=== PATIENT | female | born 1960 | race Caucasian/White ===

== ENCOUNTER 2021-11-20 06:28 | Day surgery (SDC) | payer OTHER, SELFPAY ==
[2021-11-20] MEDS: Tropicam./Phenyleph. (1/2.5%) 5 ML BTL OS ×3 (06:50→07:01)
[2021-11-20 06:51] VITALS: BP 128/86; PULSE 72; RESP 16; TEMP 36.7; O2SAT 100
--- NOTE | 2021-11-20 07:06 | W.ANESPRE ---
General Info Date of Service Date Performed: 11/20/21 Height: 5 ft 3 in Weight: 62.9 kg Body Mass Index (BMI): 24.5 Surgical Procedure: Operation Date: 11/20/21 07:40 Proposed Procedure Side Surgeon p Cataract Extraction with IOL Implant Left Mehdi Mackey MD Meds Allergies and Home Medications Allergies Allergy/AdvReac Type Severity Reaction Status Date / Time No Known Allergies Allergy Unverified 11/20/21 06:41 Current Visit Medications: Current Medications Generic Name Dose Route Start Last Admin Trade Name Freq PRN Reason Stop Dose Admin Acetaminophen 1,000 mg 11/20/21 06:00 Acetaminophen 500 Mg Tab PO Q4H PRN PRN Miscellaneous Medication 0 ml 11/20/21 06:00 Prednisolone 1%, Moxifloxacin 0.5%, Nepafenac 0.1% 5ml Btl OS DIRECTED KRISHNA Miscellaneous Medication 0 ml 11/20/21 06:00 11/20/21 07:01 Tropicam./Phenyleph. (1/2.5%) 5 Ml Btl OS 1 drp DIRECTED KRISHNA Administration Tetracaine HCl 0 ml 11/20/21 06:00 Tetracaine 0.5% 4 Ml Btl OS DIRECTED KRISHNA PFSH Active Problems Active Problems: Problem Status Onset Code Nuclear sclerotic cataract of left eye H25.12 Cortical cataract of left eye H26.9 Medical History Medical History Alcohol abuse Carbuncle Medical History Comments:: daily smoker, alcohol; weekly cannibus Surgical History Surgical History (Updated 11/20/21 @ 06:42 by Purvi Stratton) History of carpal tunnel repair Hx of appendectomy Hx of hemorrhoidectomy Tobacco Smoking/Tobacco Use Status: Current every day Tobacco Type: cigarettes Alcohol Alcohol Intake: current Alcohol intake frequency: 3 or more drinks per day Alcohol type: beer Substance Use Substance use: Socially Substance use type: marijuana Details: weekly Vital Signs and Lab Results Vital Signs Most Recent Vital Signs in EMR: Most Recent Vital Signs Temp Pulse Resp BP Pulse Ox 36.7 C 72 16 128/86 100 11/20/21 06:51 11/20/21 06:51 11/20/21 06:51 11/20/21 06:51 11/20/21 06:51 Lab Results Blood Type / Crossmatch: No Data to Display Complete Blood Count: No Data to Display Complete Metabolic Panel: No Data to Display Liver Function Panel: No Data to Display Coagulation Panel: No Data to Display Cardiac Panel: No Data to Display Arterial Blood Gas: No Data to Display Venous Blood Gas: No Data to Display Pancreas Panel: No Data to Display Thyroid Panel: No Data to Display Infectious Disease: No Data to Display Blood Cultures: No Data to Display Toxicology Panel: No Data to Display Anesthesia Assessment and Plan Anesthesia History Personal History: No History of Anesthesia Complications Family History: No Family History of Anesthesia Complications Exercise Tolerance Exercise Tolerance: Metabolic Equivalents>4 Cardiac & Pulmonary Exam Cardiac Exam: Normal S1/S2 Heart Sounds Pulmonary Exam: Clear Bilateral Breath Sounds Implantable Cardiac Device Does patient have a Pacemaker or an ICD?: No Airway Exam Known Difficult Airway: No Mallampati Class: 2 Mouth Opening: Normal (> 3cm) Thyromental Distance: Greater than 3 cm Neck Range of Motion: Full ROM Neck Circumference: Normal Teeth Condition: Normal Dentition ASA Classification ASA Score: ASA 2 Emergency Case?: No NPO Status NPO Status: NPO Clears >2 hours, Solids >8 hours Anesthesia Plan Resuscitation Status: Full Code Anesthesia Technique: MAC Anesthesia Airway Planned: Natural Airway Monitors Used: Standard Monitors
[2021-11-20 07:09] VITALS: BMI 24.5
[2021-11-20] MEDS: Povidone-Iodine Ophth 30 ML BTL (07:26)
[2021-11-20] MEDS: Lidocaine 2% Jelly 6 ML SYR (07:26)
[2021-11-20] MEDS: Tetracaine 0.5% 4 ML BTL OS (07:26)
[2021-11-20] MEDS: Duovisc Viscoelastic System EACH 1 EACH (07:33)
[2021-11-20] MEDS: Balanced Salt Soln.-PLUS 500 ML BAG (07:35)
[2021-11-20 07:55] VITALS: BP 135/86; PULSE 80; RESP 16; TEMP 36.3; O2SAT 99
--- NOTE | 2021-11-20 07:55 | W.PM.DSUDISC ---
Discharge Plan Disposition Patient Disposition: HOME Condition: Good Discharge Details Attending Provider: Mehdi Mackey Primary Care Provider: Ashleigh Martinez Discharge Instructions Stand Alone Forms: Post-op Topical Cataract, Anne Monson (DSU) Discharge Orders Discharge Orders: Discharge Order (Routine); Ordered 11/20/21 Ordered By: Mehdi Mackey DS: Diagnosis Discharge Diagnosis (1) Nuclear sclerotic cataract of left eye: Status: Resolved (2) Cortical cataract of left eye: Status: Resolved
--- NOTE | 2021-11-20 07:57 | ROE_ITS ---
Date of service: 11/20/21 Time of Service: 07:57 Operative Note Operative Note DATE OF PROCEDURE: 11/20/21 PRE-OP DIAGNOSIS: Nuclear/cortical cataract, left eye POST-OP DIAGNOSIS: same PROCEDURE: Cataract extraction using phacoemulsification with intraocular lens implant, left eye SURGEON: Mehdi Mackey ANESTHESIA TYPE: Local By Surgeon and MAC Refer to Anesthesia Record PATHOLOGY: none sent COMPLICATIONS: None Patient was transported to: same day Patient's condition: stable Implants: Raul and Raul / [employer] Tecnis [id number] Indications: Progressive decreased vision due to cataract, left eye Procedure Description: CATARACT SURGERY OPERATIVE REPORT PREOPERATIVE DIAGNOSIS: 1. Nuclear/cortical cataract, left eye POSTOPERATIVE DIAGNOSIS: Same OPERATION: 1. Cataract extraction using phacoemulsification with posterior chamber intraocular lens implant, left eye. IOL: IOL Sandblasting Supervisor/Model: Raul & Raul / BECKY Tecnis [id number] IOL Power: + 12.5 diopters IOL Serial Number: [id number] Optic Diameter: 6.0 mm Haptic/Overall Diameter: 13.0 mm PHACO INFO: Pedro[employer]o Brandson Vision System with OZil and Active Fluidics Cumulative Dispersed Energy (CDE): 9.0 seconds SURGEON: Mehdi Mackey MD, JANET ANESTHESIA: Monitored A [facility] (MAC), with local sub-tenon's anesthetic infiltration COMPLICATIONS: None SPECIMENS: None INDICATIONS FOR PROCEDURE: The patient is a 61-year-old lady with history of diminished visual acuity in her left eye secondary to the development of nuclear/cortical cataract. She has a history of myopia. The option of cataract surgery was offered to the patient and she felt she was symptomatic enough that she wished to proceed. PROCEDURE: The correct surgical eye was identified and marked as the left eye and the pupil was dilated in the preoperative area using mydriatics and cycloplegics. The dilated pupil size was 6.5 mm. She elected to proceed without oral sedation. The patient was brought to the operating room where cardiopulmonary monitoring was instituted and surgical time-out was performed, confirming the correct operative eye and IOL power. Topical anesthesia was administered and ophthalmic povidone-iodine 5% was inst illed into the conjunctival fornices. Lidocaine gel was applied to the cornea and the ana-ocular area was prepped with Betadine 10% solution and draped in the usual sterile fashion for intraocular surgery, including an aperture drape. A Tegaderm transparent film dressing was cut in half and used to cover the lashes and lid margins. Care was taken to sequester the lashes and lid margins under the Tegaderm dressing. A lid speculum was placed between the lids of the operative eye and the Pedro [employer] Revalia operating microscope was maneuvered into position. Polo scissors were then used to make a conjunctival buttonhole approximately 6mm posterior to the limbus in the inferonasal quadrant. Blunt dissection was carried out to expose bare sclera, and a blunt-tipped sub-tenon?s anesthesia cannula was introduced and passed posteriorly along the globe where non- preserved plain lidocaine was injected into posterior sub-Tenon?s space. A sideport knife was used to make a paracentesis port superiorly/superiortemporally. Intraocular phenylephrine/lidocaine was injected int the anterior chamber.. The anterior chamber was filled with viscoelastic. A 2.4mm keratome knife was used to create a half-thickness groove at the limbus and then to construct a three-plane near-clear corneal tunnel extending 2.0mm into clear cornea at the 3:00 position. A flap was raised on the anterior capsu le and capsulorhexis forceps were used to complete a continuous curvilinear capsulorhexis of 5.5 mm. Balanced salt solution was then used to perform cortical cleaving hydrodissection and nuclear hydrodelineation until the lens could be freely rotated within the capsular bag. The lens nucleus was then disassembled and removed within the capsular bag and iris plane using phacoemulsification. Resi dual cortical material was removed using the 45-degree angled silicone I/A tip with 0.3mm port. The posterior capsule was carefully polished to remove as much residual lens epithelial cells as safely possible. The capsular bag was then inflated and the anterior chamber deepened with viscoelastic. The lens implant described above was inserted into the capsular bag using the BECKY [place] Injector. A Kuglen hook was used to dial the IOL into position. Residual viscoelastic was then removed first from posterior to the IOL, then from the anterior chamber using the I/A handpiece. The lens implant was noted to center nicely within the capsular bag. The incisions were stromally hydrated, and the anterior chamber was reformed using BSS. Then 0.5cc of moxifloxacin 1.0mg/ml were injected into the capsular bag and anterior chamber. The incisions were checked with a Weck spear and found to be secure. Several drops of ophthalmic povidone-iodine 5% were then applied to the eye followed by two drops of Imprimis combination prednisolone/moxifloxacin/nepafenac solution. The drapes were removed and a clear plastic protective eye shield was placed over the eye. The patient was then returned to Same Day Surgery in stable condition.
--- NOTE | 2021-11-20 08:29 | W.ANESPOSTOP ---
Postoperative Evaluation Date, Time and Location Date Performed: 11/20/21 Time Performed: 07:58 Patient Location: Day Surgery Unit Vital Signs Most Recent Imported Vital Signs: Most Recent Vital Signs Temp Pulse Resp BP Pulse Ox 36.3 C L 80 16 135/86 99 11/20/21 07:55 11/20/21 07:55 11/20/21 07:55 11/20/21 07:55 11/20/21 07:55 Pain Score Most Recent Pain Score: Most Recent Pain Score Pain Level 0 11/20/21 07:55 Assessment Mental Status: Awake (Alert & Oriented to Patient Baseline) Airway and Respiratory Function: Patent airway with normal (patient baseline) respiratory exam Cardiovascular Function: Hemodynamically Stable Hydration Status: Adequately Hydrated Nausea & Vomiting: No Nausea or Vomiting Pain: Pt. Denies Any Pain Peripheral Nerve Block: Patient did not receive a nerve block
== END 2021-11-20 08:17 | disposition home or self-care (01) ==
PROVIDERS: PCP Internal Medicine; Visit Provider Ophthalmology
PROC: (CPT 66984; principal; 2021-11-20 07:30)
DX: H25.12 Age-related nuclear cataract, left eye (principal); F10.10 Alcohol abuse, uncomplicated
CPT/HCPCS: 66984; V2632

== ENCOUNTER 2021-12-04 11:04 | Day surgery (SDC) | payer OTHER, SELFPAY ==
[2021-12-04 11:23] VITALS: BP 143/98; PULSE 86; RESP 18; TEMP 36.6; O2SAT 100
[2021-12-04] MEDS: Tropicam./Phenyleph. (1/2.5%) 5 ML BTL OD ×3 (11:41→11:53)
--- NOTE | 2021-12-04 12:08 | W.ANESPRE ---
General Info Date of Service Date Performed: 12/04/21 Height: 5 ft 3 in Weight: 61.2 kg Body Mass Index (BMI): 23.8 Surgical Procedure: Operation Date: 12/04/21 13:10 Proposed Procedure Side Surgeon p Cataract Extraction with IOL Implant Right Mehdi Mackey MD Meds Allergies and Home Medications Allergies Allergy/AdvReac Type Severity Reaction Status Date / Time No Known Allergies Allergy Verified 12/04/21 11:26 Home Medication Medication Instructions Recorded Unknown [No Known Home Meds] 11/30/21 Current Visit Medications: Current Medications Generic Name Dose Route Start Last Admin Trade Name Freq PRN Reason Stop Dose Admin Acetaminophen 1,000 mg 12/04/21 06:00 Acetaminophen 500 Mg Tab PO Q4H PRN PRN Miscellaneous Medication 0 ml 12/04/21 06:00 Prednisolone 1%, Moxifloxacin 0.5%, Nepafenac 0.1% 5ml Btl OD DIRECTED KRISHNA Miscellaneous Medication 0 ml 12/04/21 06:00 12/04/21 11:53 Tropicam./Phenyleph. (1/2.5%) 5 Ml Btl OD 1 drp DIRECTED KRISHNA Administration Tetracaine HCl 0 ml 12/04/21 06:00 Tetracaine 0.5% 4 Ml Btl OD DIRECTED KRISHNA PFSH Active Problems Active Problems: Problem Status Onset Code Cortical cataract of right eye H26.9 Nuclear sclerotic cataract of right eye H25.11 Nuclear sclerotic cataract of left eye H25.12 Cortical cataract of left eye H26.9 Medical History Medical History Alcohol abuse Carbuncle Medical History Comments:: daily smoker, alcohol; weekly cannibus Surgical History Surgical History History of carpal tunnel repair Hx of appendectomy Hx of hemorrhoidectomy Tobacco Smoking/Tobacco Use Status: Current every day Tobacco Type: cigarettes Smoking cigarettes per day: 10 Alcohol Alcohol Intake: current Alcohol intake frequency: 3 or more drinks per day Alcohol type: beer Substance Use Substance use: Socially Substance use type: marijuana Details: weekly Vital Signs and Lab Results Vital Signs Most Recent Vital Signs in EMR: Most Recent Vital Signs Temp Pulse Resp BP Pulse Ox 36.6 C 86 18 143/98 H 100 12/04/21 11:23 12/04/21 11:23 12/04/21 11:23 12/04/21 11:23 12/04/21 11:23 Lab Results Blood Type / Crossmatch: No Data to Display Complete Blood Count: No Data to Display Complete Metabolic Panel: No Data to Display Liver Function Panel: No Data to Display Coagulation Panel: No Data to Display Cardiac Panel: No Data to Display Arterial Blood Gas: No Data to Display Venous Blood Gas: No Data to Display Pancreas Panel: No Data to Display Thyroid Panel: No Data to Display Infectious Disease: No Data to Display Blood Cultures: No Data to Display Toxicology Panel: No Data to Display Anesthesia Assessment and Plan Anesthesia History Personal History: No History of Anesthesia Complications Family History: No Family History of Anesthesia Complications Exercise Tolerance Exercise Tolerance: Metabolic Equivalents>4 Pertinent Negatives Pertinent Negatives: No Symptoms of GERD, No Major Cardiovascular Symptoms or Complaints, No Major Pulmonary Symptoms or Complaints and No History of CVA/TIA Cardiac & Pulmonary Exam Cardiac Exam: Normal S1/S2 Heart Sounds Pulmonary Exam: Clear Bilateral Breath Sounds Implantable Cardiac Device Does patient have a Pacemaker or an ICD?: No Airway Exam Known Difficult Airway: No Mallampati Class: 2 Mouth Opening: Normal (> 3cm) Thyromental Distance: Greater than 3 cm Neck Range of Motion: Full ROM Neck Circumference: Normal Teeth Condition: Normal Dentition ASA Classification ASA Score: ASA 2 Emergency Case?: No NPO Status NPO Status: NPO Clears >2 hours, Solids >8 hours Anesthesia Plan Resuscitation Status: Full Code Anesthesia Technique: MAC Anesthesia Airway Planned: Natural Airway Monitors Used: Standard Monitors
[2021-12-04 12:10] VITALS: BMI 23.8
[2021-12-04] MEDS: Lidocaine 2% Jelly 6 ML SYR (13:24)
[2021-12-04] MEDS: Tetracaine 0.5% 4 ML BTL OD (13:24)
[2021-12-04] MEDS: Povidone-Iodine Ophth 30 ML BTL (13:25)
[2021-12-04] MEDS: Duovisc Viscoelastic System EACH 1 EACH (13:30)
[2021-12-04] MEDS: Balanced Salt Soln.-PLUS 500 ML BAG (13:30)
[2021-12-04 13:50] VITALS: BP 137/93; PULSE 82; RESP 18; TEMP 36.4; O2SAT 100
--- NOTE | 2021-12-04 13:51 | W.PM.DSUDISC ---
Discharge Plan Disposition Patient Disposition: HOME Condition: Good Discharge Details Attending Provider: Mehdi Mackey Primary Care Provider: Ashleigh Martinez Home Meds and New Rx's Prescriptions: No Action No Known Home Meds Discharge Instructions Stand Alone Forms: Post-op Topical Cataract, Anne Sotoey (DSU) Discharge Orders Discharge Orders: Discharge Order (Routine); Ordered 12/04/21 Ordered By: Mehdi Mackey DS: Diagnosis Discharge Diagnosis (1) Cortical cataract of right eye: Status: Resolved (2) Nuclear sclerotic cataract of right eye: Status: Resolved
--- NOTE | 2021-12-04 13:53 | ROE_ITS ---
Date of service: 12/04/21 Time of Service: 12:53 Operative Note Operative Note DATE OF PROCEDURE: 12/04/21 PRE-OP DIAGNOSIS: Nuclear/cortical cataract, right eye POST-OP DIAGNOSIS: same PROCEDURE: Cataract extraction using phacoemulsification with intraocular lens implant, right eye SURGEON: Mehdi Mackey ANESTHESIA TYPE: Local By Surgeon and MAC Refer to Anesthesia Record ESTIMATED BLOOD LOSS: 0 PATHOLOGY: none sent COMPLICATIONS: None Patient was transported to: same day Patient's condition: stable Implants: Raul & Raul/BECKY Tecnis [id number] Indications: Progressive visual loss due to cataract, right eye Procedure Description: CATARACT SURGERY OPERATIVE REPORT PREOPERATIVE DIAGNOSIS: 1. Nuclear/cortical cataract, right eye POSTOPERATIVE DIAGNOSIS: Same OPERATION: 1. Cataract extraction using phacoemulsification with posterior chamber intraocular lens implant, right eye. IOL: IOL Ladle Repairer/Model: Raul & Raul / BECKY Tecnis [id number] IOL Power: + 13.0 diopters IOL Serial Number: [id number] Optic Diameter: 6.0mm Haptic/Overall Diameter: 13.0mm PHACO INFO: Pedro [employer]ur[employer] Vision System with OZil and Active Fluidics Cumulative Dispersed Energy (CDE): 6.74 seconds SURGEON: Mehdi Mackey MD, JANET ANESTHESIA: Monitored Anesthesia Care (MAC), with local sub-tenon's anesthetic infiltration COMPLICATIONS: None SPECIMENS: None INDICATIONS FOR PROCEDURE: The patient is a 61-year-old lady with history of myopia who has developed symptomatic bilateral nuclear and cortical cataract. She has already undergone cataract surgery in the left eye and is doing well postoperatively. She now presents for cataract surgery in the right eye. PROCEDURE: The correct surgical eye was identified and marked as the right eye and the pupil was dilated in the preoperative area using mydriatics and cyclop legics. The dilated pupil size was 6.5 mm. The patient was brought to the operating room where cardiopulmonary monitoring was instituted and surgical time-out was performed, confirming the correct operative eye and IOL power. Topical anesthesia was administered and ophthalmic povidone-iodine 5% was instilled into the conjunctival fornices. Lidocaine gel was applied to the cornea and the ana-ocular area was prepped with Betadine 10% solution and draped in the usual sterile fashion for intraocular surgery, including an aperture drape. A Tegaderm transparent film dressing was cut in half and used to cover the lashes and lid margins. Care was taken to sequester the lashes and lid margins under the Tegaderm dressing. A lid speculum was placed between the lids of the operative eye and the Pedro [employer] operating microscope was maneuvered into position. Polo scissors were then used to make a conjunctival buttonhole approximately 6mm posterior to the limbus in the inferonasal quadrant. Blunt dissection was carried out to expose bare sclera, and a blunt-tipped sub-tenon?s anesthesia cannula was introduced and passed posteriorly along the globe where non- preserved plain lidocaine was injected into posterior sub-Tenon?s space. A sideport knife was used to make a paracentesis port inferotemporally. Intraocular phenylephrine/lidocaine was injected into the anterior chamber. The anterior chamber was filled with viscoelastic. A 2.4mm keratome knife was used to construct a 2-plane near-clear corneal tunnel extending 2.0mm into clear cornea superiortemporally. A flap was raised on the anterior capsule and capsulorhexis forceps were used to complete a continuous curvilinear capsulorhexis of 5.0 mm. Balanced salt solution was then used to perform cortical cleaving hydrodissection and nuclear hydrodelineation until the lens could be freely rotated within the capsular bag. The lens nucleus was then disassembled and removed within the capsular bag and iris plane using phacoemulsification. Residual cortical material was removed using the I/A handpiece. The posterior capsule was carefully polished to remove as much residual lens epithelial cells as safely possible. The capsular bag was then inflated and the anterior chamber deepened with viscoelastic. The lens implant described above was inserted into the capsular bag using the BECKY [place] Injector. A Kuglen hook was used to dial the IOL into position. Residual viscoelastic was then removed first from posterior to the IOL, then from the anterior chamber using the I/A handpiece. The lens implant was noted to center nicely within the capsular bag. The incisions were stromally hydrated, and the anterior chamber was reformed using BSS. Then 0.5cc of moxifloxacin 1.0mg/ml were injected into the capsular bag and anterior chamber. The incisions were checked with a Weck spear and found to be secure. Several drops of ophthalmic povidone-iodine 5% were then applied to the eye followed by two drops of Imprimis combination prednisolone/moxifloxacin/nepafenac solution. The drapes were removed and a clear plastic protective eye shield was placed over the eye. The patient was then returned to Same Day Surgery in stable condition.
--- NOTE | 2021-12-04 13:58 | W.ANESPOSTOP ---
Postoperative Evaluation Date, Time and Location Date Performed: 12/04/21 Time Performed: 13:58 Patient Location: Day Surgery Unit Vital Signs Most Recent Imported Vital Signs: Most Recent Vital Signs Temp Pulse Resp BP Pulse Ox 36.6 C 86 18 143/98 H 100 12/04/21 11:23 12/04/21 11:23 12/04/21 11:23 12/04/21 11:23 12/04/21 11:23 Pain Score Most Recent Pain Score: Most Recent Pain Score Pain Level 0 12/04/21 11:23 Assessment Mental Status: Awake (Alert & Oriented to Patient Baseline) Airway and Respiratory Function: Patent airway with normal (patient baseline) respiratory exam Cardiovascular Function: Hemodynamically Stable Hydration Status: Adequately Hydrated Nausea & Vomiting: No Nausea or Vomiting Pain: Pt. Denies Any Pain Peripheral Nerve Block: Patient did not receive a nerve block
== END 2021-12-04 14:07 | disposition home or self-care (01) ==
PROVIDERS: PCP Internal Medicine; Visit Provider Ophthalmology
PROC: (CPT 66984; principal; 2021-12-04 13:00)
DX: H25.11 Age-related nuclear cataract, right eye (principal); F17.210 Nicotine dependence, cigarettes, uncomplicated
CPT/HCPCS: 66984; V2632

== ENCOUNTER 2022-10-24 06:01 | Day surgery (SDC) | payer OTHER, SELFPAY ==
[2022-10-24 06:15] VITALS: BP 100/68; PULSE 99; RESP 18; TEMP 36.2; O2SAT 99
--- NOTE | 2022-10-24 06:43 | W.PM.HP.N ---
Date of service: 10/24/22 Time of Service: 06:44 Assessment and Plan Assessment and plan (1) Malignant neoplasm of unspecified part of unspecified bronchus or lung: Status: Acute Assessment and plan: Ms Aj is a pleasant 62-year-old female who unfortunately was diagnosed with left hilar lung mass which is compressing one of the the bronchus. She used to smoke quite a bit. She quit in August of this year. She also has a abdominal wall mass which is most likely metastatic disease. Her breathing at rest is fine. She does feel unlabored when she has to walk. I think some she said she is patient said it was a cyst and put her on some azithromycin leg just that has not really about until recently now it is growing like crazy and then he told her he was given to irradiated some like it this is more than likely it is cancer. I discussed with her the reason for placing a port. We reviewed the risks and complications and alternatives. Complications include but are not limited to pneumothorax, injury to the subclavian artery or superior vena cava, infection, wound dehiscence, malfunction of the port, ulceration of the port through the skin because she is so thin, subclavian vein thrombosis and adverse reactions to the medications. Her questions were entertained and answered to her satisfaction. The patient seems to have good understanding of the risks and benefits and alternatives and wishes to proceed. Plan: Right subclavian vein Port-A-Cath placement. History of Present Illness Narrative: Ms Aj is a 62 year old female who was referred to the office for placement of Port-A-Cath. The patient was diagnosed with a left hilar lung cancer. She is due to start chemotherapy. Her past medical history is also significant for thrombocytosis, TIA in the past. She was a smoker. She also used to drink a lot of alcohol. She has had several surgeries in the past without any issues. She had a stroke back in July which is how they found this hilar mass. She has completely recovered and has no weakness in her extremities, no speech impediments. Her only complaint is that she does not have an appetite and that her taste of food is different. She did also have a COVID so this might be the reason for the change in her taste. Her respiratory status is stable although she does feel that she is a little bit more labored when she has to walk for long periods. Review of Systems All systems reviewed & are unremarkable except as noted in HPI and below PFSH All Active Problems (Updated 10/24/22 @ 07:17 by Stephenie Keene MD) Abdominal wall mass of periumbilical region (Acute) Malignant neoplasm of unspecified part of unspecified bronchus or lung (Acute) Thrombocytosis, unspecified (Acute) Transient cerebral ischemic attack, unspecified (Chronic) Insomnia, unspecified (Acute) Medical History (Updated 10/24/22 @ 07:17 by Stephenie Keene MD) Alcohol abuse Carbuncle COVID-19 (~07/2022) asymptomatic History of stroke 07/2022 Surgical History History of bronchoscopy History of carpal tunnel repair Hx of appendectomy Hx of hemorrhoidectomy Social History Smoking/Tobacco Use Status: Former Tobacco Use Quit Date: 08/15/22 Smoking risk assessment performed?: Yes Alcohol Intake: current Alcohol Intake frequency: 0-2 drinks per day Alcohol type: beer Drug use: Socially Substance use type: marijuana Details: weekly Do you feel safe at home: Yes Do you feel safe in your relationship?: Yes Meds Allergies and Home Medications Allergies Allergy/AdvReac Type Severity Reaction Status Date / Time No Known Allergies Allergy Verified 10/24/22 06:29 Home Medications Medication Instructions Recorded Confirmed Type albuterol sulfate 90 mcg/actuation 1 - 2 puff inhalation Q6H PRN 10/22/22 10/24/22 History aerosol inhaler aspirin 81 mg chewable tablet 81 mg PO DAILY 10/22/22 10/24/22 History atorvastatin 40 mg tablet 40 mg PO HS 10/22/22 10/24/22 History azithromycin 250 mg tablet 250 mg PO DIRECTED 10/22/22 History ferrous sulfate 325 mg (65 mg 325 mg PO TID 10/22/22 10/24/22 History iron) tablet (FeroSul) zolpidem 10 mg tablet 10 mg PO HS 10/22/22 10/24/22 History Exam Const General: comfortable, no acute distress and ill appearing Nutritional Appearance: average body habitus Orientation: alert and oriented x3 HENMT Head: normocephalic and atraumatic Eyes Pupils: PERRL Chest Chest: normal inspection of the chest Resp Effort & Inspection: normal respiratory effort Auscultation: clear to auscultation bilaterally Cardio Rate: regular rate Rhythm: regular rhythm Heart Sounds: no gallops, no murmurs and no rubs GI Inspection: other (abdominal wall mass) Palpation: soft, no hepatosplenomegaly and nontender General: deferred Results Imaging Abdomen CT scan report/results: report reviewed CT scan - chest: report reviewed Last Vital Signs Temp 97.2 F L 10/24/22 06:15 Pulse 99 H 10/24/22 06:15 Resp 18 10/24/22 06:15 BP 100/68 10/24/22 06:15 Pulse Ox 99 10/24/22 06:15 Time Spent Time spent with Patient: 40-54 minutes Time was spent: preparing to see the patient(eg.review tests), obtaining and/or reviewing separately otained hiistory, indepentently interpreting results and counseling the patient
--- NOTE | 2022-10-24 06:45 | DI.RAD_ITS ---
Exam(s) XR FLOURO OR C-ARM <1 HR EXAM: XR FLOURO OR C-ARM <1 HR CLINICAL HISTORY: mediport placement. TECHNIQUE: 2D digital imaging was performed. COMPARISON: No exams were available for comparison FINDINGS: Fluoroscopy provided during placement of right subclavian Port-A-Cath. See procedure report for details. Total fluoroscopy time 16 seconds IMPRESSION: As above. Radiation exposure index/cumulative dose: Ka,r= 0.96 mGy DATA REPOSITORY: RADIATION DOSE DELIVERED:
[2022-10-24] MEDS: Lactated Ringers 1,000 ML 80 ML IV (06:51)
--- NOTE | 2022-10-24 07:03 | W.ANESPRE ---
General Info Date of Service Date Performed: 10/24/22 Height: 5 ft 3 in Weight: 61.2 kg Body Mass Index (BMI): 23.8 Surgical Procedure: Operation Date: 10/24/22 07:40 Proposed Procedure Side Surgeon p Mediport Placement Stephenie Keene MD Meds Allergies and Home Medications Allergies Allergy/AdvReac Type Severity Reaction Status Date / Time No Known Allergies Allergy Verified 10/24/22 06:29 Home Medication Medication Instructions Recorded albuterol sulfate 90 mcg/actuation 1 - 2 puff inhalation Q6H PRN 10/22/22 aerosol inhaler aspirin 81 mg chewable tablet 81 mg PO DAILY 10/22/22 atorvastatin 40 mg tablet 40 mg PO HS 10/22/22 azithromycin 250 mg tablet 250 mg PO DIRECTED 10/22/22 ferrous sulfate 325 mg (65 mg 325 mg PO TID 10/22/22 iron) tablet (FeroSul) zolpidem 10 mg tablet 10 mg PO HS 10/22/22 Current Visit Medications: Current Medications Generic Name Dose Route Start Last Admin Trade Name Boomq PRN Reason Stop Dose Admin Ringer's Solution 1,000 mls @ 80 mls/hr 10/24/22 06:00 10/24/22 06:51 IV 11/22/22 23:59 80 mls/hr INFUSION KRISHNA Administration IV Miscellaneous Supplies 1 each 10/24/22 06:00 Iv Access IV 11/22/22 23:59 DIRECTED KRISHNA Sodium Chloride 0 ml 10/24/22 06:00 Normal Saline Flush 10 Ml Syr IV 11/22/22 23:59 PRN PRN Sodium Chloride 0 ml 10/24/22 06:00 Normal Saline 10 Ml Vial IJ 11/22/22 23:59 DIRECTED PRN Sterile Water 0 ml 10/24/22 06:00 Water,Injection,Sterile 10 Ml Vial IJ 11/22/22 23:59 DIRECTED PRN PFSH Active Problems Active Problems: Problem Status Onset Code Nuclear sclerotic cataract of left eye H25.12 Cortical cataract of left eye H26.9 Nuclear sclerotic cataract of right eye H25.11 Cortical cataract of right eye H26.9 Malignant neoplasm of unspecified part of unspecified bronchus or lung C34.90 Thrombocytosis, unspecified D75.839 Transient cerebral ischemic attack, unspecified G45.9 Insomnia, unspecified G47.00 Medical History Medical History (Updated 10/24/22 @ 07:17 by Stephenie Keene MD) Alcohol abuse Carbuncle COVID-19 (~07/2022) asymptomatic History of stroke 07/2022 Medical History Comments:: daily smoker, alcohol; weekly cannibus Surgical History Surgical History History of bronchoscopy History of carpal tunnel repair Hx of appendectomy Hx of hemorrhoidectomy Tobacco Smoking/Tobacco Use Status: Former Tobacco Use Alcohol Alcohol Intake: current Alcohol intake frequency: 0-2 drinks per day Alcohol type: beer Substance Use Substance use: Socially Substance use type: marijuana Details: weekly Vital Signs and Lab Results Vital Signs Most Recent Vital Signs in EMR: Most Recent Vital Signs Temp Pulse Resp BP Pulse Ox 36.2 C L 99 H 18 100/68 99 10/24/22 06:15 10/24/22 06:15 10/24/22 06:15 10/24/22 06:15 10/24/22 06:15 Lab Results Blood Type / Crossmatch: No Data to Display Complete Blood Count: No Data to Display Complete Metabolic Panel: No Data to Display Liver Function Panel: No Data to Display Coagulation Panel: No Data to Display Cardiac Panel: No Data to Display Arterial Blood Gas: No Data to Display Venous Blood Gas: No Data to Display Pancreas Panel: No Data to Display Thyroid Panel: No Data to Display Infectious Disease: No Data to Display Blood Cultures: No Data to Display Toxicology Panel: No Data to Display Anesthesia Assessment and Plan Anesthesia History Personal History: No History of Anesthesia Complications Family History: No Family History of Anesthesia Complications Exercise Tolerance Exercise Tolerance: Metabolic Equivalents>4 Pertinent Negatives Pertinent Negatives: No Symptoms of GERD Cardiac & Pulmonary Exam Cardiac Exam: Normal S1/S2 Heart Sounds Pulmonary Exam: Rales Present Cardiac and Pulmonary Comment:: Harsh sounds bilateral bases Implantable Cardiac Device Does patient have a Pacemaker or an ICD?: No Airway Exam Known Difficult Airway: No Mallampati Class: 2 Mouth Opening: Normal (> 3cm) Thyromental Distance: Greater than 3 cm Neck Range of Motion: Full ROM Neck Circumference: Normal Teeth Condition: Normal Dentition ASA Classification ASA Score: ASA 3 Emergency Case?: No NPO Status NPO Status: NPO Clears >2 hours, Solids >8 hours Anesthesia Plan Resuscitation Status: Full Code Anesthesia Technique: MAC Anesthesia Airway Planned: Natural Airway Monitors Used: Standard Monitors and POCUS Preoperative Comments:: Recent Tia. All symptoms resolved. [place] [facility] [place] under sedation.
[2022-10-24 07:06] VITALS: BMI 23.8
--- NOTE | 2022-10-24 07:20 | W.PM.DSUDISC ---
Date of service: 10/24/22 Time of Service: 08:09 Discharge Plan Disposition Patient Disposition: Home Condition: Stable Discharge Details Reason For Visit: mediport placement Attending Provider: Stephenie Keene Primary Care Provider: Ashleigh Martinez Home Meds and New Rx's Prescriptions: Continued atorvastatin 40 mg tablet 40 mg PO HS Patient Comments: TAKE 1 TABLET BY MOUTH EVERY EVENING azithromycin 250 mg tablet 250 mg PO DIRECTED Patient Comments: TK 2 TS PO ON DAY 1, THEN TK 1 T PO D FOR 4 DAYS ferrous sulfate [FeroSul] 325 mg (65 mg iron) tablet 325 mg PO TID Patient Comments: TABLET 1 TABLET BY MOUTH THREE TIMES DAILY aspirin 81 mg tablet,chewable 81 mg PO DAILY Patient Comments: CHEW AND SWALLOW 1 TABLET BY MOUTH DAILY zolpidem 10 mg tablet 10 mg PO HS Patient Comments: TAKE 1 TABLET BY MOUTH EVERY DAY AT BEDTIME albuterol sulfate 90 mcg/actuation HFA aerosol inhaler 1 - 2 puff INHALATION Q6H PRN Patient Comments: INHALE 1 -2 PUFFS BY MOUTH EVERY 6 HOURS NEEDED Discharge Instructions Instructions: Implanted Venous Access Port (DC) Additional Instructions: Activity at Home after surgery: 1. As tolerated 2. try not to keep your right arm above your head for long periods of time. This may cause a clot to form in the subclavian vein Diet, Nutrition, & wound healin. Avoid alcohol until after you are recovered from your surgery 2. Make sure to eat plenty of lean protein (meat, fish, eggs, cottage cheese, beans) 3. Eat a variety of fruits and vegetables. Eat plenty of high fiber foods to avoid constipation. 4. Drink plenty of liquids to stay hydrated and avoid constipation Pain Medications: 1. Tylenol 650mg every 6 hours as needed and Ibuprofen 600 mg every 6 hours as needed. You may alternate between the 2 medications every 3 hours For Constipation: 1. Take Milk of Magnesia or MiraLax as needed for constipation Other: 1. You may shower daily. Do not scrub the incisions 2. Do not soak the incisions for 1 week 3. You may alternate ice and heat as needed for pain and swelling Wound Care: 1. Keep the incisions clean and dry Please call our office if you develop: 1. Fevers >101.5 2. Nausea or Vomiting 3. Worsening pain 4. Redness and thick discharge from the wounds 5. Worsening shortness of breath If after hours please call the Hospital at and ask to speak to the on-call surgeon Activity:: Activity as Tolerated Remove Dressings/Wound Care:: Do Not Remove Shower/Bathe:: 24 hours Diet:: As Tolerated DS: Diagnosis Discharge Diagnosis (1) Malignant neoplasm of unspecified part of unspecified bronchus or lung: Status: Acute
--- NOTE | 2022-10-24 07:21 | W.PM.OP ---
Date of service: 10/24/22 Time of Service: 08:01 Operative Note Operative Note DATE OF PROCEDURE: 10/24/22 PRE-OP DIAGNOSIS: Left hilar lung cancer Starting chemotherapy POST-OP DIAGNOSIS: same PROCEDURE: Right subclavian vein Mediport placement SURGEON: Stephenie Keene ANESTHESIA TYPE: Local By Surgeon and MAC Refer to Anesthesia Record ESTIMATED BLOOD LOSS: 5 PATHOLOGY: none sent COMPLICATIONS: None Patient was transported to: same day Patient's condition: stable Implants: Power Port: REF- [id number] LOT- [id number] 2024-03-14 Indications: Ms Aj is a pleasant 62-year-old female who has lung cancer and is getting ready to start chemotherapy. I was asked to place a PowerPort for this. Risks, benefits and complications were reviewed with her. Complications include but are not limited to pneumothorax, hemothorax, injury to subclavian artery aorta, malfunction of the port, wound dehiscence, skin necrosis due to the patient's size and adverse reaction to the medications. Questions were entertained and answered to her satisfaction. The patient seemed to have a good understanding of the risks benefits and alternatives. She wished to proceed. Procedure Description: After informed consent was obtained the patient was taken to the operating room and placed in supine position. The patient was placed under deep sedation and once comfortable the right and left chest were prepped and draped in a sterile surgical fashion. At this point a timeout was done. The patient's name, date of , procedure to be done, potential complications, DVT prophylaxis, antibiotic given were all reviewed. Fire risk was assessed. Patient was given 1 GM of Ancef. Next 2% lidocaine mixed with half percent Marcaine with epi was injected around the clavicle on the right side as well as along the dermis and into the subcutaneous tissue of her chest wall. A power port kit was opened and using the large 18-gauge needle the subclavian vein was found and venous blood was easily aspirated. The syringe was removed and the guidewire was placed without any difficulty into the subclavian vein. The needle was removed. Fluoroscopy was then done which confirmed the placement of the guidewire. A small incision was made in the skin with the guidewire entered. An incision was made with a 15 blade. Using cautery a pocket was created for the port. Using the tunneler, the catheter was tunneled from the newly created pocket to the guidewire. The dilator and sheath were then placed over the guidewire into the subclavian vein. The dilator and guidewire were removed. The catheter was then advanced through the sheath into the subclavian vein. While holding the catheter in place at the skin the sheath was removed. Fluoroscopy was then used again and the catheter was noted to be within the ventricle and so it was pulled up until it was just above the atrium. The catheter was then cut to the right length and attached to the port. The port was placed into the pocket and fit snugly. Blood was aspirated from the port without difficulty. The port was then flushed with another 10 cc of heparin. The skin was closed using 4-0 Vicryl. The skin was cleaned and dried and dermabond was applied to the port site as well as to the small stab incision underneath the clavicle. The patient was woken up and taken back to same day surgery in stable condition. Sponge, instrument, and needle counts were correct at the end of the case. A stat chest x-ray was ordered and was pending at the time of this dictation.
[2022-10-24] MEDS: ceFAZolin 1 GM/50 ML BAG IVPB (07:30)
[2022-10-24] MEDS: Bupivacaine 0.5% Pres-Free W/EPI 30 ML VIAL (07:48)
[2022-10-24] MEDS: Heparin 500 UNITS/5 ML SYRINGE (07:48)
[2022-10-24] MEDS: Lidocaine 2% Multi-Dose 20 ML VIAL (07:49)
--- NOTE | 2022-10-24 08:00 | DI.RAD_ITS ---
Exam(s) XR PORTABLE CHEST AP POST LINE EXAM: XR PORTABLE CHEST AP POST LINE CLINICAL HISTORY: s/p mediport placement. TECHNIQUE: 2D digital imaging was performed. COMPARISON: No exams were available for comparison FINDINGS: Single AP portable view. There is a right subclavian Port-A-Cath. Distal tip is in the SVC. No pneumothorax evident. Heart size is upper normal. The mediastinum is not widened. There is infiltrates/mass density left upper lobe, suspicious for possible neoplasm. Remainder of th e lung arguello are clear and there are no pleural effusions. IMPRESSION: Right subclavian Port-A-Cath in place. No pneumothorax. Left suprahilar infiltrate-mass. DATA REPOSITORY: RADIATION DOSE DELIVERED:
[2022-10-24 08:04] VITALS: BP 108/73; PULSE 82; RESP 18; TEMP 36.3; O2SAT 98
--- NOTE | 2022-10-24 08:23 | W.ANESPOSTOP ---
Postoperative Evaluation Date, Time and Location Date Performed: 10/24/22 Time Performed: : Patient Location: Day Surgery Unit Vital Signs Most Recent Imported Vital Signs: Most Recent Vital Signs Temp Pulse Resp BP Pulse Ox 36.3 C L 82 18 108/73 98 10/24/22 08:04 10/24/22 08:04 10/24/22 08:04 10/24/22 08:04 10/24/22 08:04 Pain Score Most Recent Pain Score: Most Recent Pain Score Pain Level 0 10/24/22 08:04 Assessment Mental Status: Awake (Alert & Oriented to Patient Baseline) Airway and Respiratory Function: Patent airway with normal (patient baseline) respiratory exam Cardiovascular Function: Hemodynamically Stable Hydration Status: Adequately Hydrated Nausea & Vomiting: No Nausea or Vomiting Pain: Pt. Denies Any Pain Peripheral Nerve Block: Patient did not receive a nerve block
[2022-10-24 08:37] VITALS: BP 100/66; PULSE 79; RESP 16; TEMP 36.3; O2SAT 99
--- NOTE | 2022-10-24 08:38 | W.PM.PROGNOT ---
Date of Service Date of service: 10/24/22 Time of Service: 08:38 Assessment and Plan Assessment and plan (1) Malignant neoplasm of unspecified part of unspecified bronchus or lung: Status: Acute Assessment and plan: The patient is status post right subclavian vein port placement. She is doing well. I reviewed the x-ray and did not see a pneumothorax. Catheter seems to be in good position. Discussed postop care with the patient. Patient to be discharged home. Subjective Subjective Interval history since last seen: Patient is doing well postoperatively. She has no pain. She is not short of breath. Discussed surgery with the patient. Exam Const General: comfortable and no acute distress Resp Effort & Inspection: normal respiratory effort Auscultation: clear to auscultation bilaterally Objective Last Vital Signs Temp 97.3 F L 10/24/22 08:04 Pulse 82 10/24/22 08:04 Resp 18 10/24/22 08:04 BP 108/73 10/24/22 08:04 Pulse Ox 98 10/24/22 08:04 Time Spent with Patient Time Spent with Patient: <25 minutes Time was spent: counseling the patient
--- NOTE | 2022-10-24 08:59 | W.ANESPOSTOP ---
Postoperative Evaluation Date, Time and Location Date Performed: 10/24/22 Time Performed: 08:59 Patient Location: Day Surgery Unit Vital Signs Most Recent Imported Vital Signs: Most Recent Vital Signs Temp Pulse Resp BP Pulse Ox 36.3 C L 79 16 100/66 99 10/24/22 08:37 10/24/22 08:37 10/24/22 08:37 10/24/22 08:37 10/24/22 08:37 Most Recent Vital Signs Temp Pulse Resp BP Pulse Ox 36.3 C L 82 18 108/73 98 10/24/22 08:04 10/24/22 08:04 10/24/22 08:04 10/24/22 08:04 10/24/22 08:04 Pain Score Most Recent Pain Score: Most Recent Pain Score Pain Level 0 10/24/22 08:37 Assessment Mental Status: Awake (Alert & Oriented to Patient Baseline) Airway and Respiratory Function: Patent airway with normal (patient baseline) respiratory exam Cardiovascular Function: Hemodynamically Stable Hydration Status: Adequately Hydrated Nausea & Vomiting: No Nausea or Vomiting Pain: Pt. Denies Any Pain Peripheral Nerve Block: Patient did not receive a nerve block
--- NOTE | 2022-10-24 09:21 | NUR.NOTE ---
Pt had a [employer] Power Port implanted 10/24/2022 ref # [id number] lot# [id number] exp [id number] Note:
== END 2022-10-24 09:07 | disposition home or self-care (01) ==
PROVIDERS: PCP Internal Medicine; Visit Provider Surgery
PROC: (CPT 36561; principal; 2022-10-24 07:30)
DX: C34.02 Malignant neoplasm of left main bronchus (principal)
CPT/HCPCS: 36561; 71045; 76000; C1788; J0690; J3490

== ENCOUNTER 2022-12-03 01:45 | Outpatient (RCR) | payer OTHER, SELFPAY ==
[2022-11-12] MEDS: Normal Saline Flush 10 ML SYR IVP (12:48)
[2022-11-12 13:03] LABS: Abs Immature Grans 0.09 10^3/uL (0.0-0.06); HCT 32.9 % (36.0-46.0); HGB 10.8 g/dL (11.2-15.7); MCHC 32.8 % (32.0-36.0); MCV 88 fL (80-95); MPV 10.3 fL (8.0-11.0); RBC 3.73 10^6/uL (3.93-5.22); RDW 12.1 % (11.7-14.6)
[2022-11-12 13:23] LABS: ALT 33 U/L (14-59); AST 33 U/L (15-37); Albumin 3.1 g/dL (3.4-5.0); Alkaline Phosphatase 127 U/L (46-116); Anion Gap 8.1 mmol/L (3-11); BUN 39 mg/dL (7-18); Bilirubin, Total 0.3 mg/dL (0.2-1.0); CO2 26.9 mmol/L (21.0-32.0); CREATININE 0.8 mg/dL (0.55-1.02); Calcium 9.6 mg/dL (8.5-10.1); Chloride 97 mmol/L (98-107); Estimated GFR 82.23 (mL/min/1.73m2); FREE T4 1.18 ng/dL (0.76-1.46); Glucose 112 mg/dL (74-106); Magnesium 2.3 mg/dL (1.8-2.4); Potassium 4.9 mmol/L (3.5-5.1); Sodium 132 mmol/L (136-145); TSH 1.98 uIU/mL (0.36-3.74); Total Protein 7.2 g/dL (6.4-8.2)
[2022-11-12 13:35] LABS: Absolute Eosinophil Count 2.64 10^3/uL (0.0-0.7); Absolute Lymphocyte Count 2.45 10^3/uL (1.2-3.4); Absolute Monocyte Count 1.89 10^3/uL (0.1-0.8); Absolute Neutrophil Count 11.89 10^3/uL (1.2-6.7); Atypical Lymphocytes % 1; Bands % 0; Diff Comment Manual Differential; RBC Morphology Normal; WBC 18.87 10^3/uL (4.4-10.8)
[2022-11-12 13:36] LABS: Iron 25 ug/dL (50-170); Total Iron Binding Capacity 256 ug/dL (250-450); Transferrin Sat 10 % (15-50)
[2022-11-12 13:47] LABS: Ferritin 846 ng/mL (8-252)
[2022-11-26 07:22] LABS: Platelet Count 806 10^3/uL (130-400)
[2022-12-03] MEDS: Normal Saline Flush 10 ML SYR IVP (10:24)
[2022-12-03 10:31] LABS: Abs Immature Grans 0.08 10^3/uL (0.0-0.06); Absolute Basophil Count 0.09 10^3/uL (0.0-0.2); Absolute Eosinophil Count 0.14 10^3/uL (0.0-0.7); Absolute Lymphocyte Count 3.55 10^3/uL (1.2-3.4); Absolute Monocyte Count 1.68 10^3/uL (0.1-0.8); Absolute Neutrophil Count 8.84 10^3/uL (1.2-6.7); Basophils % 0.6; HCT 34.6 % (36.0-46.0); HGB 11.3 g/dL (11.2-15.7); Immature Grans % 0.6; Lymphocytes % 24.7; MCH 28.8 pg (27.0-33.0); MCHC 32.7 % (32.0-36.0); MCV 88 fL (80-95); MPV 8.9 fL (8.0-11.0); Monocytes % 11.7; Neutrophils % 61.4; Platelet Count 383 10^3/uL (130-400); RBC 3.93 10^6/uL (3.93-5.22); RDW 12.8 % (11.7-14.6); RDW-SD 41.9 fL; WBC 14.39 10^3/uL (4.4-10.8)
[2022-12-03 10:57] LABS: ALT 23 U/L (14-59); AST 21 U/L (15-37); Alkaline Phosphatase 175 U/L (46-116); Anion Gap 5.8 mmol/L (3-11); BUN 17 mg/dL (7-18); Bilirubin, Total 0.3 mg/dL (0.2-1.0); CO2 28.2 mmol/L (21.0-32.0); CREATININE 0.8 mg/dL (0.55-1.02); Calcium 9.2 mg/dL (8.5-10.1); Chloride 92 mmol/L (98-107); Estimated GFR 82.23 (mL/min/1.73m2); Glucose 108 mg/dL (74-106); Magnesium 1.7 mg/dL (1.8-2.4); Potassium 4.3 mmol/L (3.5-5.1); Sodium 126 mmol/L (136-145); TSH 2.24 uIU/mL (0.36-3.74); Total Protein 6.5 g/dL (6.4-8.2)
[2022-12-03 11:38] LABS: FREE T4 1.58 ng/dL (0.76-1.46)
== END 2022-12-12 23:59 | disposition home or self-care (01) ==
LOC: INF 01:45
PROVIDERS: PCP Internal Medicine; Visit Provider Internal Medicine Medical Oncology
DX: C34.12 Malignant neoplasm of upper lobe, left bronchus or lung (principal); C79.51 Secondary malignant neoplasm of bone; C79.71 Secondary malignant neoplasm of right adrenal gland; C79.72 Secondary malignant neoplasm of left adrenal gland; Z79.899 Other long term (current) drug therapy; Z45.2 Encounter for adjustment and management of vascular access device
CPT/HCPCS: 36591; 80053; 82728; 83540; 83550; 83735; 84439; 84443; 85025

== ENCOUNTER 2022-12-31 03:56 | Outpatient (RCR) | payer OTHER, SELFPAY ==
[2022-12-24] MEDS: Normal Saline Flush 10 ML SYR IVP (11:11)
[2022-12-24 11:27] LABS: Abs Immature Grans 0.62 10^3/uL (0.0-0.06); Absolute Eosinophil Count 0.12 10^3/uL (0.0-0.7); Absolute Monocyte Count 1.56 10^3/uL (0.1-0.8); Basophils % 0.5; Eosinophils % 0.9; HCT 28.3 % (36.0-46.0); HGB 9.1 g/dL (11.2-15.7); Immature Grans % 4.7; Lymphocytes % 24.9; MCH 28.9 pg (27.0-33.0); MCHC 32.2 % (32.0-36.0); MCV 90 fL (80-95); MPV 9.6 fL (8.0-11.0); Monocytes % 11.9; Neutrophils % 57.1; RBC 3.15 10^6/uL (3.93-5.22); RDW 14.7 % (11.7-14.6); RDW-SD 45.9 fL; WBC 13.11 10^3/uL (4.4-10.8)
[2022-12-24 11:30] LABS: Absolute Basophil Count 0.07 10^3/uL (0.0-0.2); Absolute Lymphocyte Count 3.26 10^3/uL (1.2-3.4); Absolute Neutrophil Count 7.49 10^3/uL (1.2-6.7)
[2022-12-24 11:43] LABS: Diff Comment Diff Reviewed; Platelet Count 919 10^3/uL (130-400); RBC Morphology Normal
[2022-12-24 12:01] LABS: ALT 11 U/L (14-59); AST 12 U/L (15-37); Alkaline Phosphatase 132 U/L (46-116); Anion Gap 5.5 mmol/L (3-11); BUN 18 mg/dL (7-18); Bilirubin, Total 0.3 mg/dL (0.2-1.0); CO2 28.5 mmol/L (21.0-32.0); CREATININE 0.6 mg/dL (0.55-1.02); Calcium 8.5 mg/dL (8.5-10.1); Chloride 98 mmol/L (98-107); Estimated GFR 100.17 (mL/min/1.73m2); FREE T4 1.12 ng/dL (0.76-1.46); Glucose 95 mg/dL (74-106); Magnesium 1.7 mg/dL (1.8-2.4); Potassium 4.2 mmol/L (3.5-5.1); Sodium 132 mmol/L (136-145); TSH 5.55 uIU/mL (0.36-3.74); Total Protein 5.6 g/dL (6.4-8.2)
[2022-12-31] MEDS: Normal Saline Flush 10 ML SYR IVP (11:49)
[2022-12-31 11:56] LABS: MCH 28.8 pg (27.0-33.0); MCHC 32.7 % (32.0-36.0); MCV 88 fL (80-95); MPV 9.5 fL (8.0-11.0); RBC 2.36 10^6/uL (3.93-5.22); RDW 14.6 % (11.7-14.6); RDW-SD 44.8 fL; WBC 3.49 10^3/uL (4.4-10.8)
[2022-12-31 12:19] LABS: ALT 14 U/L (14-59); AST 14 U/L (15-37); Albumin 1.9 g/dL (3.4-5.0); Alkaline Phosphatase 90 U/L (46-116); Anion Gap 7.1 mmol/L (3-11); BUN 14 mg/dL (7-18); Bilirubin, Total 0.4 mg/dL (0.2-1.0); CO2 28.9 mmol/L (21.0-32.0); CREATININE 0.6 mg/dL (0.55-1.02); Calcium 8.4 mg/dL (8.5-10.1); Chloride 95 mmol/L (98-107); Estimated GFR 100.17 (mL/min/1.73m2); FREE T4 1.21 ng/dL (0.76-1.46); Glucose 92 mg/dL (74-106); Magnesium 1.3 mg/dL (1.8-2.4); Potassium 3.3 mmol/L (3.5-5.1); Sodium 131 mmol/L (136-145); TSH 5.78 uIU/mL (0.36-3.74); Total Protein 5.5 g/dL (6.4-8.2)
[2022-12-31 12:20] LABS: Absolute Basophil Count 0.03 10^3/uL (0.0-0.2); Absolute Lymphocyte Count 1.95 10^3/uL (1.2-3.4); Absolute Monocyte Count 0.28 10^3/uL (0.1-0.8); Absolute Neutrophil Count 1.22 10^3/uL (1.2-6.7); Atypical Lymphocytes % 5; Bands % 1; Diff Comment Manual Differential; RBC Morphology Normal
[2022-12-31 12:23] LABS: HCT 20.8 % (36.0-46.0); HGB 6.8 g/dL (11.2-15.7)
[2022-12-31 12:24] LABS: Platelet Count 862 10^3/uL (130-400)
== END 2023-01-11 23:59 | disposition home or self-care (01) ==
LOC: INF 03:56
PROVIDERS: PCP Internal Medicine; Visit Provider Internal Medicine Medical Oncology
DX: Z45.2 Encounter for adjustment and management of vascular access device (principal); C34.12 Malignant neoplasm of upper lobe, left bronchus or lung; C79.51 Secondary malignant neoplasm of bone; Z79.899 Other long term (current) drug therapy
CPT/HCPCS: 36591; 80053; 83735; 84439; 84443; 85025

== ENCOUNTER 2022-12-31 12:56 | Inpatient (IN) | payer OTHER, SELFPAY ==
[2022-12-31] VITALS (65 sets, daily range): BP systolic 58–107; BP diastolic 41–74; PULSE 80–101; RESP 12–23; TEMP 36.6–37.8; O2SAT 89–100
--- NOTE | 2022-12-31 12:45 | RT.EKG_ITS ---
APPROVED REPORT Exam: Resting ECG Reason for Exam: hypotension Patient Location: E HR:99 bpm ECG Measurements Heart Rate 99 AXIS MI 139 P 74 QRSd 91 QRS 11 QT 351 T 20 QTc 449 Conclusion Sinus rhythm...normal P axis, V-rate 60- 99 Atrial premature complex...SV complex w/ short R-R interval Low voltage, extremity leads...all extremity leads <0.5mV
--- NOTE | 2022-12-31 13:29 | W.ED.GENAD ---
Discharge Plan Disposition Patient Disposition: Admit to [facility] Condition: Serious Discharge Details Chief Complaint: GenMedical Clinical Impression: Acute GI bleeding, Hypotension Primary Care Provider: Ashleigh Martinez ED Provider: Nile Wahl Home Meds and New Rx's Prescriptions: No Action atorvastatin 40 mg tablet 40 mg PO HS Patient Comments: TAKE 1 TABLET BY MOUTH EVERY EVENING azithromycin 250 mg tablet 250 mg PO DIRECTED Patient Comments: rx complete 12/31/22 CT ferrous sulfate [FeroSul] 325 mg (65 mg iron) tablet 325 mg PO TID Patient Comments: TABLET 1 TABLET BY MOUTH THREE TIMES DAILY aspirin 81 mg tablet,chewable 81 mg PO DAILY Patient Comments: CHEW AND SWALLOW 1 TABLET BY MOUTH DAILY zolpidem 10 mg tablet 10 mg PO HS Patient Comments: TAKE 1 TABLET BY MOUTH EVERY DAY AT BEDTIME albuterol sulfate 90 mcg/actuation HFA aerosol inhaler 1 - 2 puff INHALATION Q6H PRN Patient Comments: INHALE 1 -2 PUFFS BY MOUTH EVERY 6 HOURS NEEDED Medical Decision Making 62 yo female with hx of lung cancer, prior smoker, who went to [facility] for her chemotherapy but was referred here when her hemoglobin was 6.8 and she was hypotensive. She arrives hypotensive and states she's felt weak for weeks. She denies chest pain, fevers, chills, abdominal pain, dyspnea. She states she's had diarrhea that is black for over a week. She is caox4 speaking clearly, she has no abdominal tenderness. She is noted to have melena in her adult diaper when I examined her. No olivia blood. Given the anemia and hypotension suspect upper gi bleed, will proceed with 2 units of red cells, and evaluate for other potential causes of hypotension and sources of gi bleed with cta of her chest and ct abd/pelvis. bp improved to 85/60 with map's in the low 60's, imaging without significant acute findings, will discuss with hospitalist about admission. I did speak with general surgeon Dr. Marino as well who is aware the patient will be admitted Differential Diagnosis Differential Diagnosis: gi bleed, anemia Imaging Data Radiologic Study: Attestation: I personally reviewed and interpreted this imaging study as follows: Imaging: CT Scan Radiologist's impression: IMPRESSION: 1. No evidence of pulmonary embolism. Left upper lobe mass.? Findings consistent with bilateral pulmonary metastases. 2. Large quantity of stool in rectum, descending and sigmoid colon..? Question of rectal wall thickening.? Mass not excluded.? ? No evidence of small bowel obstruction or bowel wall edema. 3. Findings called to Dr. Wahl of the emergency department. Lab Data Lab results reviewed: Yes I reviewed the patient's lab results. ECG Data Attestation: I personally reviewed and interpreted this ECG (s) as follows: Prior ECG tracings: not available for review Interpretation: sinus, rate of 99 pr 139 no acute ischemic findings HPI General Date/Time Provider Initiated Documentation: 12/31/22 12:58. Limitations to Documentation: no limitations. Information obtained by: patient. History of Present Illness 62 year old F presents to the emergency department with the chief complaint of general weakness, described as moderate, Patient started experiencing this day(s) (2) and it has been constant. No relieving factors improve symptom(s), No exacerbating factors reported . Patient did receive the following treatments prior to arrival, none Related Data Home Medications Medication Instructions Recorded Confirmed albuterol sulfate 90 mcg/actuation 1 - 2 puff inhalation Q6H PRN 10/22/22 12/31/22 aerosol inhaler aspirin 81 mg chewable tablet 81 mg PO DAILY 10/22/22 12/31/22 atorvastatin 40 mg tablet 40 mg PO HS 10/22/22 12/31/22 azithromycin 250 mg tablet 250 mg PO DIRECTED 10/22/22 ferrous sulfate 325 mg (65 mg 325 mg PO TID 10/22/22 12/31/22 iron) tablet (FeroSul) zolpidem 10 mg tablet 10 mg PO HS 10/22/22 12/31/22 Allergies Allergy/AdvReac Type Severity Reaction Status Date / Time No Known Allergies Allergy Verified 12/31/22 13:09 General Stated Complaint: GenMedical WILIAM: 2 Review of Systems All systems reviewed & are unremarkable except as noted in HPI and below Constitutional Constitutional: Denies chills and Denies fever(s) Cardiovascular Cardiovascular: Denies chest pain and Denies dyspnea Respiratory Respiratory: Denies cough and Denies dyspnea Gastrointestinal Gastrointestinal: Denies abdominal pain, Denies nausea and Denies vomiting Genitourinary Genitourinary: Denies dysuria Musculoskeletal Musculoskeletal: Denies joint swelling Integumentary/Breasts Skin/Breast: Denies rash PFSH All Active Problems (Updated 12/31/22 @ 15:31 by Nile Wahl MD) Acute GI bleeding (Acute) Hypotension (Acute) Abdominal wall mass of periumbilical region (Acute) Malignant neoplasm of unspecified part of unspecified bronchus or lung (Acute) Thrombocytosis, unspecified (Acute) Transient cerebral ischemic attack, unspecified (Chronic) Insomnia, unspecified (Acute) Medical History (Updated 12/31/22 @ 15:31 by Nile Wahl MD) Alcohol abuse Carbuncle COVID-19 (~07/2022) asymptomatic History of stroke 07/2022 Surgical History History of bronchoscopy History of carpal tunnel repair Hx of appendectomy Hx of hemorrhoidectomy Social History Smoking/Tobacco Use Status: Former Tobacco Use Quit Date: 08/15/22 Smoking risk assessment performed?: Yes Alcohol Intake: current Alcohol Intake frequency: 0-2 drinks per day Alcohol type: beer Drug use: Socially Substance use type: marijuana Details: weekly Do you feel safe at home: Yes Do you feel safe in your relationship?: Yes Exam Const General: no acute distress Orientation: alert HENMT Head: normal to inspection Ears: external ears normal General nose exam: external nose normal Mouth: moist mucous membranes Eyes General: appearance normal, both eyes and all related structures Neck Neck: normal visual inspection Resp Effort & Inspection: normal respiratory effort and able to speak in complete sentences Cardio Jugular venous pressure: no JVD Rate: regular rate Heart Sounds: no murmurs GI Palpation: soft and nontender Skin General skin exam: no rashes or lesions noted Neuro General: patient alert and patient oriented x3 Extrem General: normal to inspection Psych Mental Status: mental status grossly normal Course Vital Signs Vital signs: Vital Signs Temperature 36.6 C 12/31/22 13:00 Pulse 98 H 12/31/22 13:00 Respiratory Rate 14 12/31/22 13:00 Blood Pressure 76/62 L 12/31/22 13:00 Pulse Oximetry 91 L 12/31/22 13:00 Temperature 36.6 C 12/31/22 13:00 Temperature Source Tympanic 12/31/22 13:00 Pulse 98 H 12/31/22 13:00 Respiratory Rate 14 12/31/22 13:05 Respiratory Effort Short of Breath 12/31/22 13:05 Respiratory Depth Normal 12/31/22 13:05 Respiratory Pattern Normal 12/31/22 13:05 Blood Pressure 76/62 L 12/31/22 13:00 Blood Pressure Position Supine 12/31/22 13:00 Pulse Oximetry 91 L 12/31/22 13:00 Oxygen Delivery Method Room Air 12/31/22 13:00 Oxygen Flow Rate 0 12/31/22 13:00 Pain Level 0 12/31/22 13:00
[2022-12-31 13:56] LABS: MCH 29.3 pg (27.0-33.0); MCHC 33.5 % (32.0-36.0); MCV 88 fL (80-95); MPV 9.5 fL (8.0-11.0); RBC 2.25 10^6/uL (3.93-5.22); RDW 14.5 % (11.7-14.6); RDW-SD 45.1 fL; WBC 3.21 10^3/uL (4.4-10.8)
[2022-12-31] MEDS: Pantoprazole 40 MG VIAL 80 MG IVP (13:56)
[2022-12-31 14:10] LABS: Absolute Neutrophil Count 1.48 10^3/uL (1.2-6.7); Bands % 6; HCT 19.7 % (36.0-46.0); HGB 6.6 g/dL (11.2-15.7)
[2022-12-31 14:11] LABS: Absolute Basophil Count 0.03 10^3/uL (0.0-0.2); Absolute Eosinophil Count 0.03 10^3/uL (0.0-0.7); Absolute Lymphocyte Count 1.32 10^3/uL (1.2-3.4); Absolute Monocyte Count 0.32 10^3/uL (0.1-0.8); Atypical Lymphocytes % 6; Diff Comment Manual Differential; Metamyelocytes % 1; Platelet Count 763 10^3/uL (130-400); RBC Morphology Normal
[2022-12-31 14:16] LABS: PTT Activated 30.6 sec (21.5-31.9); Prothrombin Time 10.3 sec (9.3-11.0)
[2022-12-31 14:21] LABS: ALT 16 U/L (14-59); AST 16 U/L (15-37); Albumin 1.9 g/dL (3.4-5.0); Alkaline Phosphatase 92 U/L (46-116); Anion Gap 8.4 mmol/L (3-11); BUN 16 mg/dL (7-18); Bilirubin, Total 0.5 mg/dL (0.2-1.0); CO2 25.6 mmol/L (21.0-32.0); CREATININE 0.7 mg/dL (0.55-1.02); Calcium 8.5 mg/dL (8.5-10.1); Chloride 93 mmol/L (98-107); Estimated GFR 96.52 (mL/min/1.73m2); Glucose 103 mg/dL (74-106); Magnesium 1.3 mg/dL (1.8-2.4); Potassium 3.1 mmol/L (3.5-5.1); Sodium 127 mmol/L (136-145); TSH (W/Ref FT4) 6.31 uIU/mL (0.36-3.74); Total Protein 5.5 g/dL (6.4-8.2); Troponin I < 50 ng/L (<or=60)
[2022-12-31] MEDS: Normal Saline Flush 10 ML SYR IVP ×3 (14:47→20:37)
[2022-12-31] MEDS: Omnipaque 350 MG/ML 500 ML BTL-Imaging package 100 ML IJ (14:48)
--- NOTE | 2022-12-31 15:05 | DI.CT_ITS ---
Exam(s) CT CHEST PE ABD PELVIS W EXAM: CT CHEST PE ABD PELVIS W CLINICAL HISTORY: dyspnea, lung cancer, gi bleed. TECHNIQUE: Imaging Protocol: Axial CT angiography was performed with multi-slice acquisition and mu lti-planar and/or 3D reconstructions. CONTRAST MATERIAL: Intravenous: Omnipaque 350 Contrast volume:100 ml COMPARISON: CR XR PORTABLE CHEST AP POST LINE from 10/24/2022 FINDINGS: CHEST: Pulmonary Arteries: No evidence of filling defect to suggest pulmonary emboli. Tracheobronchial tree: Patent where visualized. Mediastinum and Kelsie: No dominant adenopathy or fluid collection. Pulmonary parenchyma: Left upper lobe mass and volume loss. Large thick-walled cavity left upper lob e communicates with bronchi. Multiple left upper lobe nodules. Right upper lobe patchy infiltrates versus nodules. At lobular septal thickening and posterior left lower lobe with multiple nodular are as could also represent metastatic disease. Pleura: No pneumothorax. Small left pleural effusion. Heart: The heart is not dilated. No coronary artery calcifications are seen. Ascending aorta measures 4 cm. Bones: Normal. Tubes, Catheters, and Lines: Port over right chest. ABDOMEN: Liver: Normal density. Several low-density lesions could represent hemangiomas and cysts. Metastases not excluded. Portal, Superior Mesenteric, and Splenic Veins: Unremarkable. Gallbladder and Biliary Tract: Mild intrahepatic and extrahepatic dilation. Gallbladder unremarkab le. Pancreas: Normal density, no abnormal calcifications or inflammatory process. Spleen: Normal. Adrenals: Bilateral adrenal masses. Kidneys: Normal size, contour and axis. No radiodense stones or obstructive uropathy. No masses seen. Abdominal Aorta: Abdominal portion non-dilated. Bowel: Evaluation of the bowel is limited by lack surrounding intra-abdominal fat. Large quantity of stool in the rectum. Question of rectal wall thickening. No evidence of abscess. Mass not exclude d. Large quantity of stool also seen in descending and sigmoid colon. Appendix is not seen.. Smal l bowel unremarkable. Peritoneal Cavity: No ascites, collection or mesenteric inflammatory response. Lymph Nodes: Within normal limits. Bones: L4 spondylolysis and L4-5 spondylolisthesis. No compression fractures. No lytic or blastic l esions. Soft Tissues: Unremarkable. PELVIS: Bladder: Symmetric distention, no gross wall thickening. Reproductive Organs: Unremarkable as visualized. Lymph Nodes: Within normal limits. Bones: Left hip prosthesis creates significant artifact in lower pelvis. . IMPRESSION: 1. No evidence of pulmonary embolism. Left upper lobe mass. Findings consistent with bilateral pulmo nary metastases. 2. Large quantity of stool in rectum, descending and sigmoid colon.. Question of rectal wall thicken ing. Mass not excluded. No evidence of small bowel obstruction or bowel wall edema. 3. Findings called to Dr. Wahl of the emergency department. RADIATION DOSE DELIVERED: 691.45mGy.cm Total DLP DATA REPOSITORY: All CT scans at this facility are submitted to the National Radiology Data Registry (NRDR) Dose Index Registry (DIR) with the [employer] (A[employer]). RADIATION OPTIMIZATION: All CT scans at this facility use at least one of these dose optimization te chniques: automated exposure control; mA and/or kV adjustment per patient size (includes targeted exa ms where dose is matched to clinical indication); or iterative reconstruction.
--- NOTE | 2022-12-31 15:39 | SCONE_ITS ---
Date of service: 12/31/22 Time of Service: 15:39 Assessment and Plan Assessment and plan (1) Acute GI bleeding: Status: Acute Assessment and plan: Based on the hemoglobin trend through her last several oncology office visits, I suspect this is some element of chronic gastrointestinal hemorrhage. For now, I agree with transfusion of packed red blood cells to try to restore normal hemoglobin level. I would add proton pump inhibitor therapy for right now. Assuming hemodynamics remain okay, then we can plan urgent endoscopy in the next day or so. I think is fine for her to have clear liquids for right now, but plan for n.p.o. after midnight. History of Present Illness History of Present Illness Chief Complaint: Fatigue Narrative: Aileen is 62 years old. She carries diagnosis of metastatic non-small cell lung cancer. She went for chemotherapy today, but was found to be hypotensive. She is referred to the emergency department, where she found to be anemic. She had melena, that was Hemoccult positive. Consulted for gastrointestinal hemorrhage. Latasha tells me that she has been feeling ill for the past few weeks. Essentially, since the start of her chemotherapy. She was first diagnosed with non-small cell lung cancer after her stroke, and a chest x-ray revealed concerning lesion. She underwent endobronchial biopsy that confirmed the diagnosis. A port was placed, and she was started on chemotherapy around that time. She does not know the exact regimen. She tells me that she gets diarrhea after every treatment. It typically last 4 to 5 days. She is also had a change in the character of her stools over this time as well. This is a little c onfounded because she is taking iron. She denies fevers or chills, but she does tell me that she has had increasing malaise and fatigue throughout the course of her chemotherapy. She is lost all appetite, and has lost a significant amount of weight. She has no desire to eat. She denies any gastroesophageal reflux symptoms or dyspepsia. Other past medical history significant for pathologic fracture of the left hip from her metastatic lung cancer. She has had a stroke as mentioned above Past surgical history significant for an appendectomy PFSH All Active Problems Acute GI bleeding (Acute) Hypotension (Acute) Abdominal wall mass of periumbilical region (Acute) Malignant neoplasm of unspecified part of unspecified bronchus or lung (Acute) Thrombocytosis, unspecified (Acute) Transient cerebral ischemic attack, unspecified (Chronic) Insomnia, unspecified (Acute) Medical History Alcohol abuse Carbuncle COVID-19 (~07/2022) asymptomatic History of stroke 07/2022 Surgical History History of bronchoscopy History of carpal tunnel repair Hx of appendectomy Hx of hemorrhoidectomy Social History Smoking/Tobacco Use Status: Former Tobacco Use Quit Date: 08/15/22 Smoking risk assessment performed?: Yes Alcohol Intake: current Alcohol Intake frequency: 0-2 drinks per day Alcohol type: beer Drug use: Socially Substance use type: marijuana Details: weekly Do you feel safe at home: Yes Do you feel safe in your relationship?: Yes Exam Const General: cooperative and comfortable Nutritional Appearance: cachectic Orientation: alert, awake and oriented x3 HENMT Head: normal to inspection Ears: hearing grossly normal bilaterally Neck Neck: full ROM and no lymphadenopathy Other: Right chest wall port is nontender and nonerythematous Resp Effort & Inspection: normal respiratory effort Cardio Rate: regular rate Rhythm: regular rhythm GI Inspection: normal to inspection and non-distended Palpation: soft, no hernias and nontender Results Last Vital Signs Temp 97.9 F 12/31/22 13:00 Pulse 98 H 12/31/22 13:00 Resp 14 12/31/22 13:05 BP 76/62 L 12/31/22 13:00 Pulse Ox 91 L 12/31/22 13:00 Labs 12/31/22 13:40 12/31/22 13:40 Labs: Laboratory Results - last 24 hr 12/31/22 12/31/22 12/31/22 13:40 13:40 13:40 WBC 3.21 L RBC 2.25 L Hgb 6.6 L* Hct 19.7 L* MCV 88 MCH 29.3 MCHC 33.5 RDW 14.5 Plt Count 763 H* MPV 9.5 Immature Gran % 0.0 Neutrophils % 40.0 Band Neutrophils % 6 Lymphocytes % 35.0 Atypical Lymphs % 6 Monocytes % 10.0 Eosinophils % 1.0 Basophils % 1.0 Metamyelocytes % 1 Nucleated RBC % 0.0 Absolute Neutrophils 1.48 Absolute Lymphocytes 1.32 Absolute Monocytes 0.32 Absolute Eosinophils 0.03 Absolute Basophils 0.03 RBC Morphology Normal PT 10.3 INR 1.0 APTT 30.6 Sodium 127 L Potassium 3.1 L Chloride 93 L Carbon Dioxide 25.6 Anion Gap 8.4 BUN 16 Creatinine 0.7 Est GFR (CKD-EPI 2020) 96.52 Glucose 103 Calcium 8.5 Magnesium 1.3 L Total Bilirubin 0.5 AST 16 ALT 16 Alkaline Phosphatase 92 Troponin I < 50 Total Protein 5.5 L Albumin 1.9 L TSH 6.31 H Patient ABO/Rh Antibody Screen Crossmatch 12/31/22 13:40 WBC RBC Hgb Hct MCV MCH MCHC RDW Plt Count MPV Immature Gran % Neutrophils % Band Neutrophils % Lymphocytes % Atypical Lymphs % Monocytes % Eosinophils % Basophils % Metamyelocytes % Nucleated RBC % Absolute Neutrophils Absolute Lymphocytes Absolute Monocytes Absolute Eosinophils Absolute Basophils RBC Morphology PT INR APTT Sodium Potassium Chloride Carbon Dioxide Anion Gap BUN Creatinine Est GFR (CKD-EPI 2020) Glucose Calcium Magnesium Total Bilirubin AST ALT Alkaline Phosphatase Troponin I Total Protein Albumin TSH Patient ABO/Rh A Positive Antibody Screen NEGATIVE Crossmatch See Detail
--- OUTSIDE RECORDS SUMMARY | 2022-12-31 17:47 | XMS_ITS | Continuity of Care Document ---
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 Name Role Phone Ashleigh Martinez Primary Care Physician [facility] Date[facility] 10/19/22 - 10/19/[address] [address] Discharge Disposition: Home or Self Care Attending Physician: Ashleigh Martinez MD Admitting Physician: Ashleigh Martinez MD Referring Physician: Ashleigh Martinez MD Allergies, Adverse Reactions, Alerts No Known Medication Allergies Immunizations Given and Recorded Vaccine Date Status Refusal Reason tetanus/diphth/pertuss (Tdap) adult/adol 10/18/21 Recorded Problem List Condition Confirmation Course Effective Dates Status Health St atus Informant Disease caused by 2019 novel coronavirus 1 Confirmed 08/04/22 Active 1Problem added by Rule (IC_COVID19_AUTO_PROBLEM) following SARS-CoV-2 (COVID- 19)/Flu/RSV (GeneXpert)from Nasal Swab collected on 04-AUG-2022 17:54:00 EST tested positive for COVID-19. Results Laboratory List Name Date Glucose POCT 10/19/22 Most recent to oldest [Reference Range]: 1 Glucose POC [74-106 mg/dL] 84 mg/dL (10/19/22 10:12 AM) Social History Social History Type Response Tobacco Current some day tob acco user Tobacco Use:. 1/2 ppd per day. Sex Female Patient Care team information Care Team Personnel Name: Ashleigh Martinez MD Position: PowerChart View Only Member Role: Primary Care Physician Address: Address: [address] [place], [place] [address] Care Team Related Persons Name: EVE DESAI Address: Home Name: EVE DESAI H Address: Home [address] [place] [phone]
--- OUTSIDE RECORDS SUMMARY | 2022-12-31 17:47 | XMS_ITS | Continuity of Care Document ---
Author Name Unknown Organization [facility] Address [address] [place] [address] Care Team Providers Care Drop Forger Name Role Phone Ashleigh Martinez Primary Care Physician [facility]counter [facility] Date(s): 09/03/22 - 09/03/[address] [address] Discharge Disposition: Home or Self Care Attending [...] 04-AUG-2022 17:54:00 EST tested positive for COVID-19. Social History Social History Type Response Tobacco Current some day tob acco user Tobacco Use:. 1/2 ppd per day. Sex Female Patient Care team information Care Team Personnel Name: Ashleigh Martinez MD Position: PowerChart View Only Member Role: Primary Care Physician Address: Address: [address] [address] Care Team Related Persons Name: EVE DESAI Address: Home Name: EVE DESAI H Address: Home [address] [place], [place] [phone]
--- OUTSIDE RECORDS SUMMARY | 2022-12-31 17:47 | XMS_ITS | Continuity of Care Document ---
Author Name Unknown Organization [facility] Address [address] [place] [address] Care Team Providers Care Vocal Performer Name Role Phone Ashliegh Martinez Primary Care Physician Encounter [facility] Date(s): 12/20/22 - 12/20/[address] [phone] Discharge Disposition: Home or Self Care Attending Physician: Bunny Beard MD Admitting Physician: Bunny Beard MD Referring Physician: Bunny Beard MD Allergies, Adverse Reactions, Alerts No Known Medication Allergies Immunizations Given and Recorded Vaccine Date Status Refusal Reason tetanus/diphth/pertuss (Tdap) adult/adol 10/18/21 Recorded Medications Flovent HFA 44 mcg/inh inhalation aerosol 2 puffs, Inhale, BID, # 10.6 g, 0 Refill(s) Start Date: 11/14/22 Status: Ordered meloxicam 7.5 mg oral tablet 7.5 mg = 1 tab, Oral, BID, # 90 tab, 0 Refill(s) Start Date: 11/14/22 Status: Ordered nystatin 100,000 units/mL oral suspension 500,000 units = 5 mL, Oral, QID, swish and swallow. use until cleared up, 0 Refill(s) Start Date: 11/14/22 Status: Ordered oxyCODONE 5 mg oral tablet 5 mg = 1 tab, Oral, every 4 hr, PRN pain, moderate, 0 Refill(s) Start Date: 11/16/22 Status: Ordered Spiriva HandiHaler 18 mcg inhalation capsule 18 mcg = 1 cap, Inhale, Daily, 0 Refill(s) Start Date: 11/14/22 Status: Ordered Problem List Condition Confirmation Course Effective Dates [...] MD Position: PowerChart View Only Member Role: Informed Provider Address: Address: [place] [address]- Care Team Related Persons Name: EVE DESAI Address: Home Name: EVE DESAI Address: Home [address] [place] [phone] [place] Name: JENNIFER DESAI Address: [place]
--- OUTSIDE RECORDS SUMMARY | 2022-12-31 17:47 | XMS_ITS | Continuity of Care Document ---
Author Name Unknown Organization [facility] Address [address] [place] [address] Care Team Providers Care Newspaper Manager Name Role Phone Ashleigh Martinez Primary Care Physician Encounter [facility] Date(s): 11/14/22 - 11/16/[address] [id number] Encounter Diagnosis Femur fracture(Discharge Diagnosis) - 11/14/22 Lung cancer metastatic to bone(Discharge Diagnosis) - 11/14/22 Secondary malignant neoplasm of bone(Discharge Diagnosis) - 11/14/22 Anemia(Discharge Diagnosis) - 11/14/22 Hyponatremia(Discharge Diagnosis) - 11/14/22 Leukocytosis(Discharge Diagnosis) - 11/14/22 Discharge Disposition: Discharge/Transfer to [facility] as [facility] Attending Physician: Ronny Schwab DO Admitting Physician: Ronny Schwab DO Allergies, Adverse Reactions, Alerts No Known Medication Allergies Functional Status 11/16/22 Lunch Percent 100 11/15/22 Dinner Percent 0 11/15/22 Personal Care Provided Angi care, Underpad change 11/15/22 Breakfast Percent 0 11/14/22 Family Member Travel History No recent t ravel Recent Travel History No recent travel Other exposure to Infectious Disease Non e 11/14/22 Living Environment No Living Environmen t Information Available Lives In Multilevel home Lives With Family Living Situation Home independently Patient's Responsibilities 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 child/parent/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, Community mobility, Driving, 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, Health and wellness, Hobbies/Play/Sports, Home management, Housework, Laundry, Meal preparation, Personal ADL, Shopping, Social participation Immunizations Given and Recorded Vaccine Date Status Refusal Reason tetanus/diphth/pertuss (Tdap) adult/adol 4/6/22 Recorded Medications Flovent HFA 44 mcg/inh inhalation [...] 0 Refill(s) Start Date: 11/14/22 Status: Ordered Mental Status 11/14/22 Eye Opening Response [place] Spontaneous ly Best Verbal Response [place] Oriented Best Motor Response [place] Obeys comman ds [place] Coma Score 15 Problem List Condition Confirmation Course Effective Dates Status Health St atus Informant Disease caused by 2019 novel coronavirus 1 Confirmed 08/04/22 Active 1Problem added by Rule (IC_COVID19_AUTO_PROBLEM) following SARS-CoV-2 (COVID- 19)/Flu/RSV (GeneXpert)from Nasal Swab collected on 04-AUG-2022 17:54:00 EST tested positive for COVID-19. Results Laboratory List Name Date Automated Diff 11/16/22 CBC w/ Diff 11/16/22 Comprehensive Metabolic Panel 11/16/22 Magnesium Level 11/16/22 .Manual Differential (NCTY) 11/15/22 CBC w/ Diff 11/15/22 Comprehensive Metabolic Panel 11/15/22 Magnesium Level 11/15/22 CBC w/o Diff 11/14/22 .Manual Differential (NCTY) 11/14/22 Basic Metabolic Panel 11/14/22 Magnesium Level 11/14/22 Most recent to oldest [Reference Range]: 1 2 3 WBC [5.0-10.0 x10^3/mcL] 10.8 x10^3/mcL *HI* (11/16/22 6:45 AM) 11.0 x10^3/mcL *HI* (11/15/22 7:20 AM) 12.1 x10^3/mcL *HI* (11/14/22 4:00 PM) RBC [4.1-5.3 x10^6/mcL] 3.0 x10^6/mcL *LOW* (11/16/22 6:45 AM) 3.1 x10^6/mcL *LOW* (11/15/22 7:20 AM) 3.1 x10^6/mcL *LOW* (11/14/22 4:00 PM) Segs Man [40-75 %] 67 % (11/15/22 7:20 AM) 80 % *HI* (11/14/22 9:25 AM) Lymph Man [20-50 %] 17 % *LOW* (11/15/22 7:20 AM) 9 % *LOW* (11/14/22 9:25 AM) Neutro Auto [40.0-75.0 %] 77.0 % *HI* (11/16/22 6:45 AM) Lymph Auto [20.0-50.0 %] 12.9 % *LOW* (11/16/22 6:45 AM) Mcleod Auto [2.0-15.0 %] 4.0 % (11/16/22 6:45 AM) Basophil Auto [0.0-1.0 %] 0.4 % (11/16/22 6:45 AM) Mcleod Man 6 % *NA* (11/15/22 7:20 AM) 4 % *NA* (11/14/22 9:25 AM) Eos Man 8 % *NA* (11/15/22 7:20 AM) 6 % *NA* (11/14/22 9:25 AM) BUN [7-18 mg/dL] 20 mg/dL *HI* (11/16/22 6:45 AM) 27 mg/dL *HI* (11/15/22 7:20 AM) 42 mg/dL *HI* (11/14/22 9:25 AM) Glucose Level [74-106 mg/dL] 83 mg/dL (11/16/22 6:45 AM) 83 mg/dL (11/15/22 7:20 AM) 100 mg/dL (11/14/22 9:25 AM) Potassium Level [3.5-5.1 mmol/L] 4.4 mmol/L (11/16/22 6:45 AM) 4.6 mmol/L (11/15/22 7:20 AM) 4.8 mmol/L (11/14/22 9:25 AM) MCV [80.0-96.0 fL] 90.5 fL (11/16/22 6:45 AM) 91.3 fL (11/15/22 7:20 AM) 89.4 fL (11/14/22 4:00 PM) RBC Morph Abnormal (11/15/22 7:20 AM) Normal (11/14/22 9:25 AM) AST [15-37 unit/L] 40 unit/L *HI* (11/16/22 6:45 AM) 39 unit/L *HI* (11/15/22 7:20 AM) ALT [14-59 unit/L] 31 unit/L (11/16/22 6:45 AM) 33 unit/L (11/15/22 7:20 AM) MCHC [31.0-35.0 g/dL] 32.4 g/dL (11/16/22 6:45 AM) 32.3 g/dL (11/15/22 7:20 AM) 32.6 g/dL (11/14/22 4:00 PM) Sodium Level [136-145 mmol/L] 127 mmol/L *LOW* (11/16/22 6:45 AM) 129 mmol/L *LOW* (11/15/22 7:20 AM) 131 mmol/L *LOW* (11/14/22 9:25 AM) Hct [37.0-47.0 %] 27.5 % *LOW* (11/16/22 6:45 AM) 28.2 % *LOW* (11/15/22 7:20 AM) 27.9 % *LOW* (11/14/22 4:00 PM) Microcyte Rare (11/15/22 7:20 AM) Calcium Level [8.5-10.1 mg/dL] 8.7 mg/dL (11/16/22 6:45 AM) 8.7 mg/dL (11/15/22 7:20 AM) 9.1 mg/dL (11/14/22 9:25 AM) Albumin Level [3.4-5.0 g/dL] 2.2 g/dL *LOW* (11/16/22 6:45 AM) 2.3 g/dL *LOW* (11/15/22 7:20 AM) Protein Total [6.4-8.2 g/dL] 5.7 g/dL *LOW* (11/16/22 6:45 AM) 5.8 g/dL *LOW* (11/15/22 7:20 AM) MCH [26.0-32.0 pg] 29.3 pg (11/16/22 6:45 AM) 29.4 pg (11/15/22 7:20 AM) 29.2 pg (11/14/22 4:00 PM) Magnesium Level [1.8-2.4 mg/dL] 1.5 mg/dL *LOW* (11/16/22 6:45 AM) 1.7 mg/dL *LOW* (11/15/22 7:20 AM) 2.1 mg/dL (11/14/22 9:25 AM) Neutro Absolute 8.3 x10^3/mcL *NA* (11/16/22 6:45 AM) Bilirubin Total [0.2-1.0 mg/dL] 0.4 mg/dL (11/16/22 6:45 AM) 0.3 mg/dL (11/15/22 7:20 AM) Hgb [12.0-16.0 g/dL] 8.9 g/dL *LOW* (11/16/22 6:45 AM) 9.1 g/dL *LOW* (11/15/22 7:20 AM) 9.1 g/dL *LOW* (11/14/22 4:00 PM) Alk Phos [46-146 unit/L] 92 unit/L (11/16/22 6:45 AM) 87 unit/L (11/15/22 7:20 AM) Band Man [0-5 %] 0 % (11/15/22 7:20 AM) 0 % (11/14/22 9:25 AM) Platelets [130-450 x10^3/mcL] 579 x10^3/mcL *HI* (11/16/22 6:45 AM) 585 x10^3/mcL *HI* (11/15/22 7:20 AM) 629 x10^3/mcL *HI* (11/14/22 4:00 PM) CO2 [21-32 mmol/L] 25 mmol/L (11/16/22 6:45 AM) 26 mmol/L (11/15/22 7:20 AM) 28 mmol/L (11/14/22 9:25 AM) eGFR Non-AA [>=60] 98 (11/16/22 6:45 AM) 99 (11/15/22 7:20 AM) 81 (11/14/22 9:25 AM) eGFR AA [>=60] 98 (11/16/22 6:45 AM) 99 (11/15/22 7:20 AM) 81 (11/14/22 9:25 AM) Chloride Level [98-107 mmol/L] 93 mmol/L *LOW* (11/16/22 6:45 AM) 97 mmol/L *LOW* (11/15/22 7:20 AM) 96 mmol/L *LOW* (11/14/22 9:25 AM) RDW-CV [11.7-17.0 %] 12.2 % (11/16/22 6:45 AM) 12.4 % (11/15/22 7:20 AM) 12.4 % (11/14/22 4:00 PM) Imm Gran Auto [0.0-0.9 %] 0.3 % (11/16/22 6:45 AM) Abs Neut Man 7.4 x10^3/mcL *NA* (11/15/22 7:20 AM) 13.6 x10^3/mcL *NA* (11/14/22 9:25 AM) Creatinine Level [0.55-1.02 mg/dL] 0.65 mg/dL (11/16/22 6:45 AM) 0.64 mg/dL (11/15/22 7:20 AM) 0.81 mg/dL (11/14/22 9:25 AM) Baso Man [0-1 %] 2 % *HI* (11/15/22 7:20 AM) 1 % (11/14/22 9:25 AM) Eos, Auto [1.0-6.0 %] 5.4 % (11/16/22 6:45 AM) Vital Signs Most recent to oldest [Reference Range]: 1 2 3 Temperature Temporal Artery [36-38 Deg C] 36.4 Deg C (11/16/22 2:10 PM) 36.9 Deg C (11/16/22 10:40 AM) 37 Deg C (11/16/22 6:37 AM) Temperature Temporal Artery (DegF) [97.3-100 Deg F] 100.04 Deg F *HI* (11/15/22 3:12 PM) Peripheral Pulse Rate [60-100 bpm] 94 bpm (11/16/22 2:10 PM) 90 bpm (11/16/22 10:40 AM) 95 bpm (11/16/22 6:37 AM) Heart Rate Monitored [60-100 bpm] 104 bpm *HI* (11/14/22 12:00 PM) 102 bpm *HI* (11/14/22 11:30 AM) 102 bpm *HI* (11/14/22 11:00 AM) Respiratory Rate [12-24 br/min] 18 br/min (11/16/22 10:40 AM) 16 br/min (11/16/22 6:37 AM) 18 br/min (11/15/22 11:02 PM) Blood Pressure [90-140/60-90 mmHg] 104/70mmHg (11/16/22 2:10 PM) 102/69mmHg (11/16/22 10:40 AM) 103/69mmHg (11/16/22 6:37 AM) Mean Arterial Pressure Cuff 82 mmHg (11/16/22 2:10 PM) 80 mmHg (11/16/22 10:40 AM) 80 mmHg (11/16/22 6:37 AM) Blood Pressure Location Left arm (11/14/22 10:54 PM) Blood Pressure Method Manual (11/14/22 10:54 PM) Weight 44.3 kg (11/16/22 6:37 AM) 45.4 kg (11/15/22 6:44 AM) 44.200 kg (11/14/22 12:26 PM) Weight Dosing 44.200 kg (11/14/22 12:26 PM) 28.58 kg (11/14/22 7:24 AM) Weight Estimated 28.58 kg (11/14/22 7:08 AM) Height 160.000 cm (11/14/22 12:26 PM) Height/Length Dosing 160.000 cm (11/14/22 12:26 PM) 160.020 cm (11/14/22 7:24 AM) Body Mass Index 17.270 kg/m2 (11/14/22 12:26 PM) Height/Length Estimated 160.020 cm (11/14/22 7:08 AM) Social History Social History Type Response Tobacco Current some day tob acco user Tobacco Use:. 1/2 ppd per day. Sex Female Hospital Discharge Instructions Patient Education 11/16/2022 09:40:20 Femoral Shaft Fracture Femoral Shaft Fracture A femoral shaft fracture is a break in the long, straight part (shaft) of the thigh bone (femur). This condition is almost always treated with surgery. What are the causes? This condition may be caused by a forceful impact, such as from: ??? A fall, especially from a great height. ??? A sports injury. ??? A car or motorcycle accident. What increases the risk? This condition is more likely to develop in people who: ??? Are older. The risk increases with age. ??? Have certain medical conditions that cause bones to become weak and thin, such as osteoporosis. ??? Take medicines for osteoporosis. ??? Play high-risk or high-impact sports. What are the signs or symptoms? Symptoms of this condition include: ??? Severe pain. ??? Inability to walk. ??? Bruising. ??? Swelling. ??? The thigh looking misshapen (deformity). If the fracture broke the skin (open fracture), there may also be bleeding. How is this diagnosed? This condition is diagnosed based on: ??? Your symptoms and medical history. ??? A physical exam. ??? X-rays. How is this treated? This condition is usually treated with one or more of the following: ??? Surgery to fix the bone pieces into place with pins that are attached to a stabilizing bar outside your skin (external fixation). ??? Surgery to insert a petrona and screws into your femur (intramedullary nailing). If you had external fixation, you may also need intramedullary nailing a few weeks later. ??? Surgery to place metal plates on the femur to hold it in place. This may be done if your fracture is closer to an end of your femur. In rare cases, surgery may not be an option. In that case, a cast or a splint will be placed on your leg to hold it in place while the bone heals (immobilization). Treatment may also include: ??? Not putting weight on your leg until it heals (weight-bearing restrictions). ??? Using a device to help you move around (assistive device), such as crutches or a wheelchair. ??? Physical therapy. Follow these instructions at home: If you have a cast: ??? Do not stick anything inside the cast to scratch your skin. Doing that increases your risk of infection. ??? Check the skin around the cast every day. Tell your health care provider about any concerns. ??? You may put lotion on dry skin around the edges of the cast. Do not put lotion on the skin underneath the cast. ??? Keep the cast clean. ??? If the cast is not waterproof: ??? Do not let it get wet. ??? Cover it with a watertight covering when you take a bath or a shower. If you have a splint: ??? Wear the splint as told by your health care provider. Remove it only as told by your health care provider. ??? Loosen the splint if your toes tingle, become numb, or turn cold and blue. ??? Keep the splint clean. ??? If you have a splint that is not waterproof: ??? Do not let it get wet. ??? Cover it with a watertight covering when you take a bath or a shower. Activity ??? Do not use your leg to support your body weight until your health care provider says that you can. Follow weight-bearing restrictions. ??? Use crutches, a wheelchair, or other assistive devices as directed. ??? Ask your health care provider what activities are safe for you during recovery, and what activities you need to avoid. ??? Do physical therapy exercises as directed. Medicines ??? Take jalo-mac-nfydloy and prescription medicines only as told by your health care provider. ??? Ask your health care provider if you should take supplements of calcium and vitamins C and D tohelp your bone heal. Managing pain, stiffness, and swelling ??? If directed, put ice on painful areas: ??? If you have a removable splint, remove it as told by your health care provider. ??? Put ice in a plastic bag. ??? Place a towel between your skin and the bag, or between your cast and the bag. ??? Leave the ice on for 20 minutes, 2???3 times a day. ??? Move your toes often to avoid stiffness and to lessen swelling. ??? Raise (elevate) your lower leg above the level of your heart while you are lying down or sitting, whenever possible. General instructions ??? Do not put pressure on any part of the cast or splint until it is fully hardened, if applicable. This may take several hours. ??? Do not drive until your health care provider approves. You should not drive or use heavy machinery while taking prescription pain medicine. ??? Do not use any products that contain nicotine or tobacco, such as cigarettes and e-cigarettes. These can delay bone healing. If you need help quitting, ask your health care provider. ??? Do not take baths, swim, or use a hot tub until your health care provider approves. Ask your health care provider if you may take showers. You may only be allowed to take sponge baths. ??? Keep all follow-up visits as told by your health care provider. This is important. Contact a health care provider if you have: ??? Pain that gets worse or does not get better with medicine. ??? Redness or swelling that gets worse. ??? A fever. Get help right away if you have: ??? Any of the following symptoms in your toes or feet, even after loosening your splint: ??? Coldness. ??? Blue skin. ??? Numbness. ??? Tingling. ??? Severe pain. ??? Pain that gets worse when you move your toes. ??? Chest pain. ??? Shortness of breath. Summary ??? A femoral shaft fracture is a break in the long, straight part (shaft) of your thigh bone (femur). This is almost always treated with surgery. ??? This condition may be caused by a forceful impact. ??? Do not use your leg to support your body weight until your health care provider says that you can. Follow weight-bearing restrictions as directed. ??? Keep all follow-up visits as told by your health care provider. This is important. This information is not intended to replace advice given to you by your health care provider. Make sure you discuss any questions you have with your health care provider. Document Revised: 08/18/2018 Document Reviewed: 08/18/2018 [employer] Patient Education ?? 2021 [employer]. 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 One: [X] General, ??? One: [X] Pain, severe, Both: [X] Unresponsive to ??? 2 doses of analgesic prior to admit decision [X] Intervention, Both: [X] Requiring additional analgesic ??? 2 doses [X] Pain assessment at least every 4h ACUTE, ??? One: General, ??? One: Surgery planned within 24h and, Both: Reviewer Comment: Denisa Tipton on 11-14-2022 07:09 PM CDT surgery is planned for Saturday, greater than 24 hours [X] Bleeding, actual or suspected and, Both: Musculoskeletal, ??? One: Fracture, subluxation, or dislocation, Both: [X] Fr acture (excludes uncomplicated compression fractures) and, ??? One: [X] Not a surgical candidate and, ??? One: [X] Subluxation (excludes uncomplicated compression fractures) and, ??? One: [X] Dislocation (excludes uncomplicated compression fractures) and, ??? One: [X] Intervention, ??? One: [X] Analgesic ??? 3x/24h or continuous [X] Pending medical clearance for surgery ??? 24h EKG study * Event Display: Telemetry Strips Please click on link to view image. * Event Display: Telemetry Strips Please click on link to view image. * Event Display: Telemetry Strips Please click on link to view image. Pharmacology Progress note * Karen Barnes PharmD: PERFORM Event Display: Pharmacy Progress Note Authored Date: [id number] Pharmacy Progress Note Med history updated with records from [facility]. Per their note, pt stopped her Flovent HFA 44mcg d/t dysphagia Electronically Signed on 11/14/22 12:56 PM Karen Barnes PharmD Respiratory therapy Hospital Progress note * Anayeli Gilbert: PERFORM Event Display: Respiratory Therapy Progress Note Authored Date: [id number] ??BRISA DESAI 62 Years Assessment: scattered rhonchi t/o, pt reports coughing up thick yellow secretions, pt reports not wanting to cough because of pain, RN notified about pain status. Treatments: IS therapy 1000mL Plan: Encouraged pt to use IS every hour 10x while awake Electronically Signed on 11/15/22 05:34 PM Anayeli Giblert * Tania Ibarra: PERFORM Event Display: Respiratory Therapy Progress Note Authored Date: [id number] ??BRISA DESAI 62 Years MEASURED Body Mass Index: 17.27 kg/m2 (11/14/22 12:26:00) Height: 160 cm (11/14/22 12:26:00) Weight: 44.2 kg (11/14/22 12:26:00) DOSING Height/Length Dosin cm (11/14/22 12:26:00) Weight Dosin.2 kg (11/14/22 12:26:00) Respiratory Shift Summary Breath Sounds: Clear Respiratory Protocol??Aerosol Therapy Assessment and Scoring Home Medication Routine: Lung History (2) Current smoker greater than 1 pack/day with greater than 15 pack year history and/or diagnosed lung disease Breath Sounds (0) Clear in all arguello Respiratory Rate (0) Less than or equal to 18 Modified Melvin Scale or Observed Dyspnea (0) None Oxygen Therapy (0) Room air, at baseline home O2, post-op, or CHF Home Respiratory Medications (1) Rescue MDI less than or equal to 1 time per day Inhaler Use Assessment ? Clinically Stable? Yes? Can take a slow deep breath on command? Yes? Can perform a 3 second breath hold? Yes Respiratory total Score: 3 Respiratory Guidelines 3-4 pts - Q6 PRN for SOB Electronically Signed on 11/14/22 01:05 PM Tania Ibarra Physician Emergency department Note * Gabi Kerns MD: PERFORM Event Display: ED Note Physician Authored Date: [id number] BRISA DESAI :1960 Age:62 years Sex:Female Visit Date:11/14/2022 Primary Care Physician: Ashleigh Martinez MD Basic Information Time Seen: Gabi Kerns MD / 11/14/2022 07:19 Chief Complaint Pt c/o pain to her left hip. ??Sat down in car and felt something pop. ??No actual fall reported. ??Pt is to start chemo on Saturday for lung cancer as well as bone cancer to her left hip History Of Present Illness: Patient was getting into her car when she heard a snap she has cancer that has gone to her bones??primary lung cancer. ??Patient has pain when she moves.?? No fever no chills no ear nose or throat pain no chest pain no cough??no nausea no vomiting no tingling no numbness Review of Systems: see hpi for ros Physical Exam Vitals & Measurements T:??35.7?C ??(Temporal Artery)?? HR:??102??(Peripheral)?? HR:??102??(Monitored)?? RR:??19?? BP:??100/67?? SpO2:??97%?? HT:??160.020??cm?? WT:??28.58??kg??(Estimated)?? Pain Score:??5?? O2 Therapy:??Room air?? General: Alert and oriented, well nourished,?No??acute distress Eye: PER?Normal??conjunctiva,??No??scleral icterus HENT: Normocephalic,??nontraumatic??Normal hearing Lungs: Clear to auscultation,?Non-labored?? respiration Heart:?Normal?? rate,?Regular??rhythm,?No??murmur,?No??gallop,?No??edema Chest: wall excursion wnl no abnormal movements no obvious deformities Musculoskeletal:??Appears to have deformity of her left hip area??dorsalis pedis posterior tibialis??are a 2 sensation light touch is intact in her left foot Skin: Skin is warm, dry and pink,?No??rashes,?No??lesions Neurologic: Awake, alert and oriented X4 Psychiatric: Cooperative, appropriate mood and affect Medical Decision Making: For MDM please see under assessment and plan Procedure No Qualifying Data Assessment/Plan 1.??Femur fracture??S72.90XA Is a metastatic femur fracture??from lung cancer[facility]Dr. Gardner of [facility]opedics??was said to take a look at patient's x-rays and stated that??they could do surgery this coming Saturday. Dr May stated they would be able to take the patient on Saturday for the expected Saturday surgery.?? I asked him to make sure that Saturday was the soonest that they could do the surgery??and they assured me Saturday was the soonest they can do the surgery. Orders: Basic Metabolic Panel, Blood, Stat, 11/14/22 9:20:00 EDT, Once, Nurse collect Decision to Admit, 11/14/22 10:14:00 EDT, Medical Unit Problem List/Past Medical History Ongoing Disease caused by 2019 novel coronavirus Historical No qualifying data Medication Administration Given 0.9% NaCl bolus, 1000 mL, IV Piggyback Ativan, 0.5 mg, IV Push morphine, 2 mg, IV Push morphine, 2 mg, IV Push NS bolus, 500 mL, IV Piggyback NS bolus, 500 mL, IV Piggyback Allergies No Known Medication Allergies Social History Electronic Cigarette/Vaping Electronic Cigarette Use: Never. Tobacco Current some day tobacco user Tobacco Use:. 1/2 ppd per day. Lab Results CBC and Differential?? LATEST RESULTS?? HISTORICAL RESULTS?? WBC?? 11/14/22 09:25?? 17.0 ??High?? 09/03/22?? 12.0 ??High?? RBC?? 11/14/22 09:25?? 3.4 ??Low?? 09/03/22?? 4.4?? Hgb?? 11/14/22 09:25?? 9.9 ??Low?? 09/03/22?? 13.2?? Hct?? 11/14/22 09:25?? 30.1 ??Low?? 09/03/22?? 40.5?? MCV?? 11/14/22 09:25?? 88.5?? 09/03/22?? 91.8?? MCH?? 11/14/22 09:25?? 29.1?? 09/03/22?? 29.9?? MCHC?? 11/14/22 09:25?? 32.9?? 09/03/22?? 32.6?? RDW-CV?? 11/14/22 09:25?? 12.2?? 09/03/22?? 12.7?? Platelets?? 11/14/22 09:25?? 686 ??High?? 09/03/22?? 787 ??Critical?? Segs Man?? 11/14/22 09:25?? 80 ??High? Lymph Man?? 11/14/22 09:25?? 9 ??Low? Mcleod Man?? 11/14/22 09:25?? 4? Eos Man?? 11/14/22 09:25?? 6? Baso Man?? 11/14/22 09:25?? 1? Band Man?? 11/14/22 09:25?? 0? Abs Neut Man?? 11/14/22 09:25?? 13.6? RBC Morph?? 11/14/22 09:25?? Normal? Electronically Signed on 11/14/22 10:50 AM Gabi Kerns MD Emergency department Note * Salena Baig M: PERFORM Event Display: ED Notes Authored Date: [id number] Progress note * Ronny Schwab DO: PERFORM Event Display: Progress Note - Physician Authored Date: [id number] BRISA DESAI :1960 Age:62 years Sex:Female Visit Date:11/14/2022 Primary Care Physician: Ashleigh Martinez MD Subjective Stable. ??Pain seems to be reasonably well controlled. ?? Awaiting transfer tomorrow. ?? Review of Systems Denies chest pain, dyspnea, palpitations, dizziness, headaches, sudden visual changes, cough, or new peripheral edema. Objective Vitals & Measurements T:??36.7?C ??(Temporal Artery)?? TMIN:??36.5?C ??(Temporal Artery)?? TMAX:??37.3?C ??(Temporal Artery)?? HR:??108??(Peripheral)?? RR:??18?? BP:??102/71?? SpO2:??94%?? HT:??160.000??cm?? WT:??45.4??kg?? BMI:??17.270?? Pain Score:??10?? Pain Score:??10?? O2 Therapy:??Room air?? Physical Exam General: Alert and oriented woman who appears stated age in no acute distress; ??apparent full command of cognitive faculties HEENT: Normocephalic; normal facial movements; extraocular muscle movements apparently normal; necksupple without adenopathy; no evidence of thyromegaly or nodularity Cardiovascular: S1-S2; ??no noted murmurs, rubs or gallops Pulmonary: Good air movement bilaterally with no wheezes, rales or rhonchi Abdomen: Soft, nontender with no guarding; no organomegaly; nondistended;??3 to 5 cm??round large red smooth lesion??with some??drainage from the center??but her left middle abdomen Skin: Warm and dry; no rashes Neurological: Moves all extremities; no focal deficits; cranial nerves 3, 4, 6, 7, 8, 11, and 12 within normal limits Musculoskeletal: No edema; obvious deformity??with some lateral deviation??of the??proximal left??upper thigh Psych: normal affect; apparently euthymic; no abnormal thoughts or hallucinations evident.?? [1] Assessment/Plan 1.??Femur fracture??S72.90XA 1.??Femur fracture??S72.90XA ??This is a pathologic fracture??at the site that was previously identified on the PET scan??as??being afflicted with metastatic disease. ?? We will keep her here at [facility] until a bed is available at[facility].?? Report isthat this should be??on Saturday-tomorrow. ?? Pain control. ?? We will start DVT prophylaxis with heparin as her hemoglobin has been stable.?? She is at high riskfor DVT. ?? Follow labs. ?? 2.??Lung cancer metastatic to bone??C34.90 ??She does have??metastatic lung cancer??which??would have a fairly poor prognosis. ?? She is undergoing radiation therapy and chemotherapy??and will??be treated for this pathologic fracture at [facility] where she is getting her care. ?? 3.??Anemia??D64.9 ??Hemoglobin has been stable??since yesterday.?? Will restart??DVT prophylaxis with heparin. ?? 4.??Hyponatremia??E87.1 ??Sodium??is a bit lower than usual today but not particularly off her baseline.?? Pain may be contributing. ?? 5.??Leukocytosis??D72.829 Improving-basically at her baseline. ?? She denies any??infection signs??that might of contributed to the fracture. ??Her fracture was not the result of a fall so much is simply sitting in her car. 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 Orders: acetaminophen, 1,000 mg = 2 tab, Oral, Tab, every 6 hr, PRN fever, First Dose: 11/14/22 12:34:00 EDT, Routine acetaminophen, 650 mg = 2 tab, Oral, Tab, every 6 hr, PRN pain, mild, First Dose: 11/14/22 12:34:00EDT, Routine heparin, 5,000 units = 1 mL, Subcutaneous, Soln, TID, First Dose: 11/15/22 9:00:00 EDT, Routine lidocaine 1% injectable solution, 5 mg 0.5 mL, Intradermal, Soln, As Directed, PRN other (see comment), First Dose: 11/14/22 12:34:00 EDT, Routine LORazepam, 0.5 mg = 1 tab, Oral, Tab, every 6 hr, PRN anxiety, First Dose: 11/14/22 12:34:00 EDT, Routine morphine, 2 mg = 1 mL, IV Push, Soln-IV, every 2 hr, PRN pain, severe, First Dose: 11/14/22 12:34:00 EDT, Routine omeprazole, 20 mg = 1 cap, Oral, Cap-DR, Daily, First Dose: 11/14/22 6:00:00 EDT, Routine ondansetron, 4 mg = 2 mL, IV Push, Soln, every 6 hr, PRN nausea/vomiting, First Dose: 11/14/22:34:00 EDT, Routine oxyCODONE, 5 mg = 1 tab, Oral, Tab, every 4 hr, PRN pain, moderate, First Dose: 11/14/22 12:34:00 EDT, Routine polyethylene glycol 3350, 17 g = 1 packets, Oral, Powder-Recon, Daily, PRN constipation, First Dose: 11/14/22:34:00 EDT, Routine Soap Suds Enema, 1 packet, OR, Daily PRN constipation, 11/15/22 8:22:00 EDT Normal Saline Flush, 10 mL, IV Push, Soln, every 12 hr (kandace), First Dose: 11/14/22 21:00:00 EDT, Routine Bedrest, 11/14/22:34:00 EDT, Reason: Other (please specify), Turn patient every 2 hrs. Cardiac Monitoring, 11/14/22:34:00 EDT, Telemetry CBC w/ Diff, Blood, Routine, 11/14/22:34:00 EDT, every morning, for 3 days, Lab Collect Comprehensive Metabolic Panel, Blood, Routine, 11/14/22:34:00 EDT, every morning, for 3 days, Lab Collect Diet Order, 11/14/2234:00 EDT, Regular, Patient is consuming only Ensure for calories at home. Can provide 2 containers of Ensure per meal, and 1 container twice a day in between meals as needed. Magnesium Level, Blood, Routine, 11/14/22:34:00 EDT, every morning, for 3 days, Lab Collect Resuscitation Status, 11/14/2234:00 EDT, Do Not Resuscitate and Do Not Intubate Sequential Compression Devices (SCD's), 11/14/22:00 EDT, Constant Order, Intermittent pneumatic compression Urinary Catheter Care, 11/14/2234:00 EDT, every 8 hr (kandace) Vital Signs, 11/14/2234:00 EDT, Constant order, every 4 hrs Weight, 11/14/22:34:00 EDT, Daily Disposition:??Expecting transfer to [facility]??for??fracture repair tomorrow. 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 ?? Her cancer was first evident when [place] [facility] for consideration of thrombectomy.?? By the time she arrived her stroke symptoms had nearly??resolved and so this was not done??but imaging did show??a lung mass.?? Further work-up was undertaken. ?? She has known??metastatic??lung cancer??and a PET scan done??on 10/19/2022??showed a lesion at the site??of the current fracture.?? She has a large skin lesion on her??left??middle abdomen??as well which??is evident on the PET scan. ?? Today after what was apparently a fracture she was brought to the??emergency department??for further evaluation. ?? An x-ray of her??hip and??pelvis did show a displaced??fracture??in the proximal left femur. ?? She has requested transfer to [facility]??where she has her??care??but they could not take her today??so she will remain here until Saturday??when they will be able to transfer her for planned??surgery to repair her hip. ?? Blood work was done and shows a white cell count of 17,000??with neutrophil predominance, hemoglobin of 9.9??platelets of??686,??sodium of 131, potassium 4.8,??chloride of 96, CO2 of 28,??BUN of 42,??creatinine of 0.8,??calcium 9.1, and a magnesium of 2.1. ?? She is undergoing chemotherapy and reportedly has??a session planned for Saturday.?? I cannot access the [facility] system for some reason today??and so cannot confirm this. ?? On my interview with the patient she is reasonably comfortable. ?? She reports that she was in her usual state although she did have some discomfort??at that site in her leg??the previous day. ?? Social history:?? She typically lives with her??infirm elderly mother and is her primary caregiver Her son is with her today at the bedside She quit smoking in July after her stroke Drinks no??alcohol Uses no recreational drugs ?? CODE STATUS:??DNR/DNI-she is confident of this and discussion took place in the presence of her son Review of Systems Left hip region discomfort??like a tooth ache.?? Denies chest pain, dyspnea, palpitations, dizziness, headaches, sudden visual changes, cough, or new peripheral edema. Physical Exam Vitals & Measurements T:??37.3?C ??(Temporal Artery)?? TMIN:??35.7?C ??(Temporal Artery)?? TMAX:??37.3?C ??(Temporal Artery)?? HR:??107??(Peripheral)?? RR:??18?? BP:??110/60?? SpO2:??93%?? HT:??160.000??cm?? WT:??44.200??kg?? BMI:??17.270?? Pain Score:??7?? O2 Therapy:??Room air?? General: Alert and oriented woman who appears stated age in no acute distress; ??apparent full command of cognitive faculties HEENT: Normocephalic; normal facial movements; extraocular muscle movements apparently normal; necksupple without adenopathy; no evidence of thyromegaly or nodularity Cardiovascular: S1-S2; ??no noted murmurs, rubs or gallops Pulmonary: Good air movement bilaterally with no wheezes, rales or rhonchi Abdomen: Soft, nontender with no guarding; no organomegaly; nondistended;??3 to 5 cm??round large red smooth lesion??with some??drainage from the center??but her left middle abdomen Skin: Warm and dry; no rashes Neurological: Moves all extremities; no focal deficits; cranial nerves 3, 4, 6, 7, 8, 11, and 12 within normal limits Musculoskeletal: No edema; obvious deformity??with some lateral deviation??of the??proximal left??upper thigh Psych: normal affect; apparently euthymic; no abnormal thoughts or hallucinations evident.?? Assessment/Plan 1.??Femur fracture??S72.90XA This is a pathologic fracture??at the site that was previously identified on the PET scan??as??being afflicted with metastatic disease. ?? We will keep her here at [facility] until a bed is available at??[facility].?? Report isthat this should be??on Saturday, in 2 days. ?? Pain control. ?? DVT??prevention??with heparin??once hemoglobin stable ?? Follow labs. 2.??Lung cancer metastatic to bone??C34.90 She does have??metastatic lung cancer??which??would have a fairly poor prognosis. ?? She is undergoing radiation therapy and chemotherapy??and will??be treated for this pathologic fracture at [facility] where she is getting her care. 3.??Anemia??D64.9 Hemoglobin was??lower than previously. ??With pathologic??nature of fracture, will recheck??hemoglobin later in the day??to be sure this is not dropping further. 4.??Hyponatremia??E87.1 Sodium has been chronically low??and today's??level of 131??is right where it has been.?? We will follow but will make a special attempt to bring this up at this time. 5.??Leukocytosis??D72.829 Has been chronically elevated??though it is a bit higher than usual today.?? This may be stress related??with the fracture although she is not in a lot of pain.?? We will follow for now. ?? She denies any??infection signs??that might of contributed to the fracture. ??Her fracture was not the result of a fall so much is simply sitting in her car. 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 Orders: acetaminophen, 1,000 mg = 2 tab, Oral, Tab, every 6 hr, PRN fever, First Dose: 11/14/22 12:34:00 EDT, Routine acetaminophen, 650 mg = 2 tab, Oral, Tab, every 6 hr, PRN pain, mild, First Dose: 11/14/22 12:34:00EDT, Routine lidocaine 1% injectable solution, 5 mg 0.5 mL, Intradermal, Soln, As Directed, PRN other (see comment), First Dose: 11/14/22 12:34:00 EDT, Routine LORazepam, 0.5 mg = 1 tab, Oral, Tab, every 6 hr, PRN anxiety, First Dose: 11/14/22:34:00 EDT, Routine morphine, 2 mg = 1 mL, IV Push, Soln-IV, every 2 hr, PRN pain, severe, First Dose: 11/14/22 12:34:00 EDT, Routine omeprazole, 20 mg = 1 cap, Oral, Cap-DR, Daily, First Dose: 11/14/22 6:00:00 EDT, Routine ondansetron, 4 mg = 2 mL, IV Push, Soln, every 6 hr, PRN nausea/vomiting, First Dose: 11/14/22 12:34:00 EDT, Routine oxyCODONE, 5 mg = 1 tab, Oral, Tab, every 4 hr, PRN pain, moderate, First Dose: 11/14/22 12:34:00 EDT, Routine polyethylene glycol 3350, 17 g = 1 packets, Oral, Powder-Recon, Daily, PRN constipation, First Dose: 11/14/22:34:00 EDT, Routine Normal Saline Flush, 10 mL, IV Push, Soln, every 12 hr (kandace), First Dose: 11/14/22 21:00:00 EDT, Routine Bedrest, 11/14/22 12:34:00 EDT, Reason: Other (please specify), Turn patient every 2 hrs. Cardiac Monitoring, 11/14/22 12:34:00 EDT, Telemetry CBC w/ Diff, Blood, Routine, 11/14/22 12:34:00 EDT, every morning, for 3 days, Lab Collect CBC w/o Diff, Blood, Routine, 11/14/22 16:00:00 EDT, Once, Lab Collect Comprehensive Metabolic Panel, Blood, Routine, 11/14/22 12:34:00 EDT, every morning, for 3 days, Lab Collect Diet Order, 11/14/22 12:34:00 EDT, Regular, Patient is consuming only Ensure for calories at home. Can provide 2 containers of Ensure per meal, and 1 container twice a day in between meals as needed. Magnesium Level, Blood, Routine, 11/14/22 12:34:00 EDT, every morning, for 3 days, Lab Collect PSO Admit to Inpatient, Semi-Private, Inpatient, Ronny Schwab DO, 11/14/22 11:22:00 EDT, 11/14/22 11:22:00 EDT, 11/14/22 11:22:00 EDT, 2 midnights or more Resuscitation Status, 11/14/22 12:34:00 EDT, Do Not Resuscitate and Do Not Intubate Sequential Compression Devices (SCD's), 11/14/22 12:34:00 EDT, Constant Order, Intermittent pneumatic compression Urinary Catheter Care, 11/14/22 12:34:00 EDT, every 8 hr (kandace) Vital Signs, 11/14/22 12:34:00 EDT, Constant order, every 4 hrs Weight, 11/14/22 12:34:00 EDT, Daily Disposition:??Will discharge to [facility] hopefully on Saturday when a bed is available. Problem List/Past Medical History Ongoing Disease caused by 2019 novel coronavirus Historical No qualifying data Medications Inpatient acetaminophen, 1000 mg= 2 tab, Oral, every 6 hr, PRN acetaminophen, 650 mg= 2 tab, Oral, every 6 hr, PRN lidocaine 1% injectable solution, 5 mg= 0.5 mL, Intradermal, As Directed, PRN LORazepam, 0.5 mg= 1 tab, Oral, every 6 hr, PRN morphine, 2 mg= 1 mL, IV Push, every 2 hr, PRN Normal Saline Flush, 10 mL, IV Push, every 12 hr (kandace) omeprazole, 20 mg= 1 cap, Oral, Daily ondansetron, 4 mg= 2 mL, IV Push, every 6 hr, PRN oxyCODONE, 5 mg= 1 tab, Oral, every 4 hr, PRN polyethylene glycol 3350, 17 g= 1 packets, Oral, Daily, PRN Home Flovent HFA 44 mcg/inh inhalation aerosol, 2 puffs, Inhale, BID meloxicam 7.5 mg oral tablet, 7.5 mg= 1 tab, Oral, BID nystatin 100,000 units/mL oral suspension, 479188 units= 5 mL, Oral, QID Spiriva HandiHaler 18 mcg inhalation capsule, 18 mcg= 1 cap, Inhale, Daily Allergies No Known Medication Allergies Social History Electronic Cigarette/Vaping Electronic Cigarette Use: Never. Tobacco Current some day tobacco user Tobacco Use:. 1/2 ppd per day. Immunizations Vaccine Date Status tetanus/diphth/pertuss (Tdap) adult/adol 10/18/2021 Recorded Lab Results Test Name Test Result Date/Time WBC 17.0 x10^3/mcL 11/14/2022 09:25 EDT RBC 3.4 x10^6/mcL 11/14/2022 09:25 EDT Hgb 9.9 g/dL 11/14/2022 09:25 EDT Hct 30.1 % 11/14/2022 09:25 EDT MCV 88.5 fL 11/14/2022 09:25 EDT MCH 29.1 pg 11/14/2022 09:25 EDT MCHC 32.9 g/dL 11/14/2022 09:25 EDT RDW-CV 12.2 % 11/14/2022 09:25 EDT Platelets 686 x10^3/mcL 11/14/2022 09:25 EDT Segs Man 80 % 11/14/2022 09:25 EDT Lymph Man 9 % 11/14/2022 09:25 EDT Mcleod Man 4 % 11/14/2022 09:25 EDT Eos Man 6 % 11/14/2022 09:25 EDT Baso Man 1 % 11/14/2022 09:25 EDT Band Man 0 % 11/14/2022 09:25 EDT Abs Neut Man 13.6 x10^3/mcL 11/14/2022 09:25 EDT RBC Morph Normal 11/14/2022 09:25 EDT Sodium Level 131 mmol/L 11/14/2022 09:25 EDT Potassium Level 4.8 mmol/L 11/14/2022 09:25 EDT Chloride Level 96 mmol/L 11/14/2022 09:25 EDT CO2 28 mmol/L 11/14/2022 09:25 EDT BUN 42 mg/dL 11/14/2022 09:25 EDT Glucose Level 100 mg/dL 11/14/2022 09:25 EDT Creatinine Level 0.81 mg/dL 11/14/2022 09:25 EDT eGFR AA 81 11/14/2022 09:25 EDT eGFR Non-AA 81 11/14/2022 09:25 EDT Calcium Level 9.1 mg/dL 11/14/2022 09:25 EDT Magnesium Level 2.1 mg/dL 11/14/2022 09:25 EDT Electronically Signed on 11/14/22 03:11 PM Ronny Schwab DO Electronically Signed on 11/14/22 04:52 PM Ronny Schwab DO Electronically Signed on 11/14/22 04:57 PM Ronny Schwab DO Patient Care team information Care Team Personnel Name: Ashleigh Martinez MD Position: PowerChart View Only Member Role: Informed Provider Address: Address: [address] Name: Kiara Ramirez Position: Nurse Member Role: ED Nurse Name: Kirsten Causey Position: Nurse Member Role: ED Nurse Name: Gabi Kerns MD Position: Physician Member Role: ED Physician Address: Address: [address] [place] [address] Care Team Related Persons Name: EVE DESAI Name: EVE DESAI H Address: Home [address], [place] [id number] Name: JENNIFER DESAI
--- OUTSIDE RECORDS SUMMARY | 2022-12-31 17:47 | XMS_ITS | Continuity of Care Document ---
Author Name Unknown Organization [facility] Address [address] [place] [address] Care Team Providers Care Director Of Securities And Real Estate Name Role Phone Ashleigh Martinez Primary Care Physician [facility] Date[facility] 09/11/22 - 09/11/[address] [address] Discharge Disposition: Home or Self Care Attending Physician: Ashleigh Martinez MD Admitting Physician: Ashleigh Martinez MD Allergies, Adverse Reactions, [...] for COVID-19. Results Laboratory List Name Date Occult Blood Screen, Feces 09/11/22 Most recent to oldest [Reference Range]: 1 Occult Bld Stl I Negative (09/11/22 1:09 PM) Occult Bld Stl ll N/A (09/11/22 1:09 PM) Occult Bld Stl lll N/A (09/11/22 1:09 PM) Social History Social History Type Response Tobacco Current some day tob acco user Tobacco Use:. 1/2 ppd per day. Sex Female Patient Care team information Care Team Personnel Name: Ashleigh Martinez MD Position: PowerChart View Only Member Role: Primary Care Physician Address: Address: [address] [address]- Care Team Related Persons Name: EVE DESAI Address: Home Name: EVE DESAI H Address: Home [address] [place], [place] [id number]
--- OUTSIDE RECORDS SUMMARY | 2022-12-31 17:47 | XMS_ITS | Continuity of Care Document ---
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 Results Laboratory List Name Date CBC w/ Diff 09/03/22 Comprehensive Metabolic Panel 09/03/22 Ferritin 09/03/22 Iron Level and TIBC 09/03/22 Automated Diff 09/03/22 Most recent to oldest [Reference Range]: 1 WBC [5.0-10.0 x10^3/mcL] 12.0 x10^3/mcL *HI* (09/03/22 1:16 PM) RBC [4.1-5.3 x10^6/mcL] 4.4 x10^6/mcL (09/03/22 1:16 PM) Neutro Auto [40.0-75.0 %] 67.4 % (09/03/22 1:16 PM) Lymph Auto [20.0-50.0 %] 17.7 % *LOW* (09/03/22 1:16 PM) Lee Auto [2.0-15.0 %] 11.5 % (09/03/22 1:16 PM) Basophil Auto [0.0-1.0 %] 0.6 % (09/03/22 1:16 PM) BUN [7-18 mg/dL] 9 mg/dL (09/03/22 1:16 PM) Glucose Level [74-106 mg/dL] 97 mg/dL (09/03/22 1:16 PM) Potassium Level [3.5-5.1 mmol/L] 4.1 mmo l/L (09/03/22 1:16 PM) MCV [80.0-96.0] 91.8 (09/03/22 1:16 PM) AST [15-37 unit/L] 17 unit/L (09/03/22 1:16 PM) ALT [14-59 unit/L] 21 unit/L (09/03/22 1:16 PM) MCHC [31.0-35.0 g/dL] 32.6 g/dL (09/03/22 1:16 PM) Sodium Level [136-145 mmol/L] 132 mmol/L *LOW* (09/03/22 1:16 PM) Hct [37.0-47.0 %] 40.5 % (09/03/22 1:16 PM) Calcium Level [8.5-10.1 mg/dL] 9.6 mg/dL (09/03/22 1:16 PM) Albumin Level [3.4-5.0 g/dL] 3.5 g/dL (09/03/22 1:16 PM) Protein Total [6.4-8.2 g/dL] 7.7 g/dL (09/03/22 1:16 PM) Iron Sat [20-55 %] 16 % *LOW* (09/03/22 1:16 PM) MCH [26.0-32.0 pg] 29.9 pg (09/03/22 1:16 PM) Neutro Absolute 8.1 x10^3/mcL *NA* (09/03/22 1:16 PM) Bilirubin Total [0.2-1.0 mg/dL] 0.5 mg/d L (09/03/22 1:16 PM) Hgb [12.0-16.0 g/dL] 13.2 g/dL (09/03/22 1:16 PM) Alk Phos [46-146 unit/L] 95 unit/L (09/03/22 1:16 PM) Ferritin Level [8-252 ng/mL] 446 ng/mL *HI* (09/03/22 1:16 PM) Platelets [130-450 x10^3/mcL] 787 x10^3/ mcL 1 *CRIT* (09/03/22 1:16 PM) CO2 [21-32 mmol/L] 26 mmol/L (09/03/22 1:16 PM) TIBC [250-450 mcg/dL] 279 mcg/dL (09/03/22 1:16 PM) Iron [50-170 mcg/dL] 46 mcg/dL *LOW* (09/03/22 1:16 PM) eGFR Non-AA [>=60] 97 (09/03/22 1:16 PM) eGFR AA [>=60] 97 (09/03/22 1:16 PM) Chloride Level [98-107 mmol/L] 95 mmol/L *LOW* (09/03/22 1:16 PM) RDW-CV [11.7-17.0 %] 12.7 % (09/03/22 1:16 PM) Imm Gran Auto [0.0-0.9 %] 0.5 % (09/03/22 1:16 PM) Creatinine Level [0.55-1.02 mg/dL] 0.70 mg/dL (09/03/22 1:16 PM) Eos, Auto [1.0-6.0 %] 2.3 % (09/03/22 1:16 PM) 1Result Comment: Called to and verbally verified by Caryn Pepe at 09/03/2022 13:23:46 EST EMB. Social History Social History Type Response Tobacco Current some day tob acco user Tobacco Use:. 1/2 ppd per day. Sex Female Patient Care team information Care Team Personnel Name: Ashleigh Martinez MD Position: PowerChart View Only Member Role: Primary Care Physician Address: Address: [address] [address]- Care Team Related Persons Name: EVE DESAI Address: Home Name: EVE DESAI H Address: Home [address] [place], [place] [id number]
--- OUTSIDE RECORDS SUMMARY | 2022-12-31 17:47 | XMS_ITS | Continuity of Care Document ---
Author Name Unknown Organization [facility] Address [address] [place] [address] Care Team Providers Care Animal Care Technician Name Role Phone Ashleigh Martinez Primary Care Physician Encounter [id number] Date(s): 08/04/22 - 08/04/[address] [id number] Encounter Diagnosis Stroke(Discharge Diagnosis) - 08/04/22 Lung mass(Discharge Diagnosis) - 08/04/22 COVID-19(Discharge Diagnosis) - 08/04/22 Discharge Disposition: Intermediate Care Attending Physician: Faheem Dorado MD Admitting Physician: Faheem Dorado MD Allergies, Adverse Reactions, Alerts No Known Medication Allergies Functional Status 08/04/22 Other exposure to Infectious Disease Non e Immunizations Given and Recorded Vaccine Date Status Refusal Reason tetanus/diphth/pertuss (Tdap) adult/adol 10/18/21 Recorded Problem List Condition Confirmation Course Effective Dates Status Health St atus Informant Disease caused by 2019 novel coronavirus 1 Confirmed 08/04/22 Active 1Problem added by Rule (IC_COVID19_AUTO_PROBLEM) following SARS-CoV-2 (COVID- 19)/Flu/RSV (GeneXpert)from Nasal Swab collected on 04-AUG-2022 17:54:00 EST tested positive for COVID-19. Results Laboratory List Name Date SARS-CoV-2 (COVID-19)/Flu/RSV (GeneXpert ) (COVID-19/Flu/RSV (GeneXpert)) 08/04/22 CBC w/ Diff 08/04/22 Comprehensive Metabolic Panel (CMP) 08/04 Magnesium Level 08/04/22 NT- Pro BNP 08/04/22 PT/ INR 08/04/22 PTT 08/04/22 Troponin-I 08/04/22 Automated Diff 08/04/22 Most recent to oldest [Reference Range]: 1 WBC [5.0-10.0 x10^3/mcL] 13.7 x10^3/mcL *HI* (08/04/22 6:07 PM) RBC [4.1-5.3 x10^6/mcL] 4.7 x10^6/mcL (08/04/22 6:07 PM) Neutro Auto [40.0-75.0 %] 74.5 % (08/04/22 6:07 PM) Lymph Auto [20.0-50.0 %] 15.4 % *LOW* (08/04/22 6:07 PM) [place] Auto [2.0-15.0 %] 8.6 % (08/04/22 6:07 PM) Basophil Auto [0.0-1.0 %] 0.6 % (08/04/22 6:07 PM) Prothrombin Time [9.0-11.0 seconds] 9.6 seconds (08/04/22 6:07 PM) INR 0.9 *NA* (08/04/22 6:07 PM) BUN [7-18 mg/dL] 9 mg/dL (08/04/22 6:07 PM) Glucose Level [74-106 mg/dL] 89 mg/dL (08/04/22 6:07 PM) Potassium Level [3.5-5.1 mmol/L] 4.9 mmo l/L (08/04/22 6:07 PM) MCV [80.0-96.0] 90.6 (08/04/22 6:07 PM) AST [15-37 unit/L] 29 unit/L (08/04/22 6:07 PM) ALT [14-59 unit/L] 18 unit/L (08/04/22 6:07 PM) MCHC [31.0-35.0 g/dL] 33.2 g/dL (08/04/22 6:07 PM) Troponin-I [0.0-51.4 pg/mL] 10.4 pg/mL (08/04/22 6:07 PM) Sodium Level [136-145 mmol/L] 130 mmol/L *LOW* (08/04/22 6:07 PM) Hct [37.0-47.0 %] 42.5 % (08/04/22 6:07 PM) Partial Thromboplastin Time [22-35 secon ds] 27 seconds (08/04/22 6:07 PM) Calcium Level [8.5-10.1 mg/dL] 9.2 mg/dL (08/04/22 6:07 PM) Albumin Level [3.4-5.0 g/dL] 3.4 g/dL (08/04/22 6:07 PM) Protein Total [6.4-8.2 g/dL] 7.4 g/dL (08/04/22 6:07 PM) MCH [26.0-32.0 pg] 30.1 pg (08/04/22 6:07 PM) Magnesium Level [1.8-2.4 mg/dL] 2.0 mg/d L (08/04/22 6:07 PM) Neutro Absolute 10.2 x10^3/mcL *NA* (08/04/22 6:07 PM) Bilirubin Total [0.2-1.0 mg/dL] 0.6 mg/d L (08/04/22 6:07 PM) Hgb [12.0-16.0 g/dL] 14.1 g/dL (08/04/22 6:07 PM) Alk Phos [46-146 unit/L] 92 unit/L (08/04/22 6:07 PM) Platelets [130-450 x10^3/mcL] 613 x10^3/ mcL *HI* (08/04/22 6:07 PM) CO2 [21-32 mmol/L] 25 mmol/L (08/04/22 6:07 PM) eGFR Non-AA [>=60] 95 (08/04/22 6:07 PM) eGFR AA [>=60] 95 (08/04/22 6:07 PM) NT-proBNP [0-125 pg/mL] 452 pg/mL *HI* (08/04/22 6:07 PM) Chloride Level [98-107 mmol/L] 94 mmol/L *LOW* (08/04/22 6:07 PM) RDW-CV [11.7-17.0 %] 13.1 % (08/04/22 6:07 PM) Imm Gran Auto [0.0-0.9 %] 0.7 % (08/04/22 6:07 PM) Creatinine Level [0.55-1.02 mg/dL] 0.71 mg/dL (08/04/22 6:07 PM) Employed in healthcare? Unknown *NA* (08/04/22 6:52 PM) Symptomatic as defined by CDC? Unknown *NA* (08/04/22 6:52 PM) Hospitalized due to COVID-19? Unknown *NA* (08/04/22 6:52 PM) In ICU? Unknown *NA* (08/04/22 6:52 PM) Group care resident? Unknown *NA* (08/04/22 6:52 PM) status? Unknown *NA* (08/04/22 6:52 PM) SARS-CoV-2(Covid19)PCR(GXpert COVFLURSV) [Negative] Positive *ABN* (08/04/22 6:52 PM) Flu A (GXpert COVFLURSV) [Negative] Nega tive (08/04/22 6:52 PM) RSV (GXpert COVFLURSV) [Negative] Negati ve (08/04/22 6:52 PM) Flu B (GXpert COVFLURSV) [Negative] Nega tive (08/04/22 6:52 PM) Eos, Auto [1.0-6.0 %] 0.2 % *LOW* (08/04/22 6:07 PM) Vital Signs Most recent to oldest [Reference Range]: 1 2 3 Temperature Temporal Artery [36-38 Deg C] 36.2 Deg C (08/04/22 5:42 PM) Peripheral Pulse Rate [60-100 bpm] 87 bpm (08/04/22 7:40 PM) 78 bpm (08/04/22 7:03 PM) 154 bpm *HI* (08/04/22 6:59 PM) Heart Rate Monitored [60-100 bpm] 87 bpm (08/04/22 7:40 PM) 78 bpm (08/04/22 7:03 PM) 78 bpm (08/04/22 7:00 PM) Respiratory Rate [12-24 br/min] 20 br/min (08/04/22 7:40 PM) 13 br/min (08/04/22 7:03 PM) 15 br/min (08/04/22 7:00 PM) Blood Pressure [90-140/60-90 mmHg] 123/84mmHg (08/04/22 7:40 PM) 138/81mmHg (08/04/22 7:03 PM) 138/81mmHg (08/04/22 7:00 PM) Mean Arterial Pressure, Cuff [65-140 mmHg] 97 mmHg (08/04/22 7:40 PM) 100 mmHg (08/04/22 7:03 PM) Weight 52.90 kg (08/04/22 5:42 PM) Weight Dosing 52.90 kg (08/04/22 5:47 PM) Height 163.000 cm (08/04/22 5:42 PM) Height/Length Dosing 163.000 cm (08/04/22 5:47 PM) Body Mass Index 20.000 kg/m2 (08/04/22 5:42 PM) Social History Social History Type Response Tobacco Current some day tob acco user Tobacco Use:. 1/2 ppd per day. Sex Female Physician Emergency department Note * Faheem Dorado MD: PERFORM Event Display: ED Note Physician Authored Date: [id number] BRISA DESAI :1960 Age:62 years Sex:Female Visit Date:08/04/2022 Primary Care Physician: Ashleigh Martinez MD Basic Information Time Seen: Faheem Dorado MD / 08/04/2022 17:45 Chief Complaint pt states that starting about noon today became weak and her left arm and left leg were weak. BGL 91 History Of Present Illness: 62-year-old female no medical history not on any medications, sees a primary care physician about once a year, presents with left upper and lower extremity weakness and slurred speech that started atnoon today. ??Patient came in 6 hours after onset of symptoms because son came home for dinner and noted her symptoms, brought her in for evaluation.?? She still has symptoms and on arrival she had complete left upper extremity paralysis??with??significant weakness of the left lower extremity. Review of Systems: Left upper and lower extremity weakness,??slurred speech Physical Exam Vitals & Measurements T:??36.2?C ??(Temporal Artery)?? HR:??87??(Peripheral)?? HR:??87??(Monitored)?? RR:??20?? BP:??123/84?? SpO2:??99%?? HT:??163.000??cm?? WT:??52.90??kg?? BMI:??20.000?? Pain Score:??0?? O2 Therapy:??Room air?? General: Alert and oriented, well nourished,?No??acute distress Eye: PERRL, EOMI,?Normal??conjunctiva HENT: Normocephalic Lungs: Clear to auscultation and percussion,?Non-labored?? respiration Heart:?Normal?? rate,?Regular??rhythm??murmur,?No??gallop,?No??edema Abdomen: Soft, non-tender, non-distended,?Normal?? bowel sounds,?No??masses Skin: Skin is warm, dry and pink,?No??rashes,?No??lesions Neurologic: Cranial nerves II through X intact, patient has near complete left upper extremity paralysis with movement??only in her left hand, right upper extremity is normal, right lower extremity is normal, left lower extremity has??3 out of 5??muscle strength and falls to the bed before 10 seconds, dorsiflexion plantarflexion intact, slight numbness to the left lower extremity,??there is possible facial droop??on the right side, speech overall globally??sounds normal. ??Otherwise no other neurologic findings on exam. Medical Decision Makin-year-old female??presents with??left upper and lower extremity??weakness starting at noon today.??Glucose on arrival is??normal.?? Patient??has clear speech but has a possible facial droop on theright, but clearly has significant left upper extremity paralysis and is unable to move the arm with the exception of moving the hand.?? Patient's??son states that earlier she was unable to even moveher hand but her symptoms are gradually improving. ??Her left??lower extremity has fairly significant weakness as well, 3 out of 5, falls to the bed with gravity??for 10 seconds.?? Patient is not a tPA candidate secondary to being outside of the window, onset of symptoms was at noon??which was about??6 hours prior to arrival. ?? EKG rate 95, normal axis and intervals no ST segment elevations or depressions, sinus. ?? Leukocytosis of 13.7, this may be secondary to patient??being COVID-positive, otherwise no other??exact clear etiology.?? Hemoglobin normal at 14.?? Troponin is normal.?? Chest x-ray shows??mass left upper lobe near mediastinum with spiculated margins concerning for malignancy.?? CT??head unremarkable, CTA??shows acute??right-sided M1 occlusion.?? Patient was given 324 aspirin. ??Teleneurologyconsult was obtained, recommended??endovascular??treatment. ??Spoke with endovascular team at [facility]??who accepted patient, patient will be transferred ER to ER, Dr. Mejia is accepting. ??Patient was updated and informed??of??unfortunately having several new diagnoses today after previously having no documented medical history.?? I spoke with her??and her son about the findings of the mass in the chest, and??that I will need further imaging and characterization to differentiate??this, however patient and son are??aware of the??high possibility of??malignancy.?? Patient does have a smoking history.?? As for the stroke, no other acute medical management here in the ER,??patient will be transported??down to [facility]??ED for??neurosurgical evaluation, patient is candidate for endovascular repair.?? Of note, patient's??symptoms seem to be??improving fairly significantly??as EMS arrived to the ER to take the patient to [facility]. Critical Care Time Spent Total critical care time: Approximately??60 minutes Due to a high probability of clinically significant, life threatening deterioration, the patient required my highest level of preparedness to intervene emergently and I personally spent this criticalcare time directly and personally managing the patient. This critical care time included obtaining a history; examining the patient; pulse oximetry; ordering and review of studies; arranging urgent treatment with development of a management plan; evaluation of patient's response to treatment; frequent reassessment; and, discussions with other providers. This critical care time was performed to assess and manage the high probability of imminent, life-threatening deterioration that could result in multi-organ failure. It was exclusive of separately billable procedures and treating other patients. Please see MDM section and the rest of the note for further information on patient assessment and treatment. Procedure No Qualifying Data Assessment/Plan 1.??Stroke??I63.9 2.??Lung mass??R91.8 3.??COVID-19??U07.1 Problem List/Past Medical History Ongoing Disease caused by 2019 novel coronavirus Historical No qualifying data Medication Administration Given aspirin, 324 mg, Oral NS bolus, 500 mL, IV Piggyback Allergies No Known Medication Allergies Social History Electronic Cigarette/Vaping Electronic Cigarette Use: Never. Tobacco Current some day tobacco user Tobacco Use:. 1/2 ppd per day. Lab Results CBC and Differential?? LATEST RESULTS?? WBC?? 08/04/22 18:07?? 13.7 ??High?? RBC?? 08/04/22 18:07?? 4.7?? Hgb?? 08/04/22 18:07?? 14.1?? Hct?? 08/04/22 18:07?? 42.5?? MCV?? 08/04/22 18:07?? 90.6?? MCH?? 08/04/22 18:07?? 30.1?? MCHC?? 08/04/22 18:07?? 33.2?? RDW-CV?? 08/04/22 18:07?? 13.1?? Platelets?? 08/04/22 18:07?? 613 ??High?? Neutro Auto?? 08/04/22 18:07?? 74.5?? Lymph Auto?? 08/04/22 18:07?? 15.4 ??Low?? [place] Auto?? 08/04/22 18:07?? 8.6?? Eos, Auto?? 08/04/22 18:07?? 0.2 ??Low?? Basophil Auto?? 08/04/22 18:07?? 0.6?? Imm Gran Auto?? 08/04/22 18:07?? 0.7?? Neutro Absolute?? 08/04/22 18:07?? 10.2? Coagulation?? LATEST RESULTS?? Prothrombin Time?? 08/04/22 18:07?? 9.6?? INR?? 08/04/22 18:07?? 0.9?? Partial Thromboplastin Time?? 08/04/22 18:07?? 27? Routine Chemistry?? LATEST RESULTS?? Sodium Level?? 08/04/22 18:07?? 130 ??Low?? Potassium Level?? 08/04/22 18:07?? 4.9?? Chloride Level?? 08/04/22 18:07?? 94 ??Low?? CO2?? 08/04/22 18:07?? 25?? Alk Phos?? 08/04/22 18:07?? 92?? AST?? 08/04/22 18:07?? 29?? ALT?? 08/04/22 18:07?? 18?? BUN?? 08/04/22 18:07?? 9?? Glucose Level?? 08/04/22 18:07?? 89?? Creatinine Level?? 08/04/22 18:07?? 0.71?? eGFR AA?? 08/04/22 18:07?? 95?? eGFR Non-AA?? 08/04/22 18:07?? 95?? Calcium Level?? 08/04/22 18:07?? 9.2?? Protein Total?? 08/04/22 18:07?? 7.4?? Albumin Level?? 08/04/22 18:07?? 3.4?? Bilirubin Total?? 08/04/22 18:07?? 0.6?? Magnesium Level?? 08/04/22 18:07?? 2.0? Cardiac Isoenzymes?? LATEST RESULTS?? Troponin-I?? 08/04/22 18:07?? 10.4?? NT-proBNP?? 08/04/22 18:07?? 452 ??High? Infectious Disease?? LATEST RESULTS?? Employed in healthcare??? 08/04/22 18:52?? Unknown?? Symptomatic as defined by CDC??? 08/04/22 18:52?? Unknown?? Hospitalized due to COVID-19??? 08/04/22 18:52?? Unknown?? In ICU??? 08/04/22 18:52?? Unknown?? Group care resident??? 08/04/22 18:52?? Unknown?? status??? 08/04/22 18:52?? Unknown?? SARS-CoV-2(Covid19)PCR(GXpert COVFLURSV)?? 08/04/22 18:52?? Positive Abnormal?? Flu A (GXpert COVFLURSV)?? 08/04/22 18:52?? Negative?? Flu B (GXpert COVFLURSV)?? 08/04/22 18:52?? Negative?? RSV (GXpert COVFLURSV)?? 08/04/22 18:52?? Negative? Electronically Signed on 08/04/22 08:36 PM Faheem Dorado MD Emergency department Note * Alley Aiken: PERFORM Event Display: ED Notes Authored Date: * Alley Aiken: PERFORM Event Display: ED Notes Authored Date: * Alley Aiken: PERFORM Event Display: ED Notes Authored Date: Patient Care team information Personnel Name: Ashleigh Martinez MD Address: Address: [address]
--- NOTE | 2022-12-31 18:57 | HPE_ITS ---
Date of service: 12/31/22 Time of Service: 18:57 Assessment and Plan Assessment and plan (1) Acute GI bleeding: Status: Acute Assessment and plan: Large amount of melanotic stool with a markedly low hemoglobin. Evaluated by Dr. Marino from general surgery. He agrees with transfusion to a normal hemo globin and stabilization of vital signs. He would consider upper endoscopy on an urgent basis once stable. Proton pump inhibitor therapy with pantoprazole 40 mg daily (she received 80 mg in the ED. Clear liquid diet for now. (2) Malignant neoplasm of unspecified part of unspecified bronchus or lung: Status: Acute Assessment and plan: Metastatic lung cancer with palliative chemotherapy. She did not receive her dose today. She is DNR/DNI and appears well appraised of her overall prognosis. History of Present Illness History of Present Illness Chief Complaint: Melanotic stool, weakness Narrative: 62-year-old female with metastatic lung cancer on palliative chemotherapy. She describes getting diarrhea after chemotherapy doses. Her last chemotherapy was 7 days ago. She began having diarrhea about 1 day after chemotherapy. She has been incontinent of loose watery stools. She did notice it was somewhat dark. She lives alone in her own home. She has a hospital bed and a bedside commode. She wears diapers control bowel incontinence. Today she noticed she was too weak to even get out of bed. She was transported to the emergency room. In the emergency room she was hypotensive and had a hemoglobin of 6.6. A rectal exam revealed melanotic stool grossly heme positive. She had a CT angiogram that showed no evidence of a PE but did show some pulmonary nodules. An abdominal CT scan showed no new masses. She was low on potassium and using them. She was started on a packed red cell infusion and admitted to the ICU. Review of Systems Narrative: She has been feeling extremely weak as noted in HPI. She has lost 50 pounds since July. She no longer smokes and does not drink alcohol. She has not been having any chest pain or shortness of breath. She has had a cough productive of some thick greenish sputum. Her appetite is diminished. PFSH All Active Problems Acute GI bleeding (Acute) Hypotension (Acute) Abdominal wall mass of periumbilical region (Acute) Malignant neoplasm of unspecified part of unspecified bronchus or lung (Acute) Thrombocytosis, unspecified (Acute) Transient cerebral ischemic attack, unspecified (Chronic) Insomnia, unspecified (Acute) Medical History Alcohol abuse Carbuncle COVID-19 (~07/2022) asymptomatic History of stroke 07/2022 Surgical History History of bronchoscopy History of carpal tunnel repair Hx of appendectomy Hx of hemorrhoidectomy Social History Smoking/Tobacco Use Status: Former Tobacco Use Quit Date: 08/15/22 Smoking risk assessment performed?: Yes Alcohol Intake: current Alcohol Intake frequency: 0-2 drinks per day Alcohol type: beer Drug use: Socially Substance use type: marijuana Details: weekly Do you feel safe at home: Yes Do you feel safe in your relationship?: Yes Meds Allergies and Home Medications Allergies Allergy/AdvReac Type Severity Reaction Status Date / Time No Known Allergies Allergy Verified 12/31/22 13:09 Home Medications Medication Instructions Recorded Confirmed Type albuterol sulfate 90 mcg/actuation 1 - 2 puff inhalation Q6H PRN 10/22/22 12/31/22 History aerosol inhaler aspirin 81 mg chewable tablet 81 mg PO DAILY 10/22/22 12/31/22 History atorvastatin 40 mg tablet 40 mg PO HS 10/22/22 12/31/22 History azithromycin 250 mg tablet 250 mg PO DIRECTED 10/22/22 History ferrous sulfate 325 mg (65 mg 325 mg PO TID 10/22/22 12/31/22 History iron) tablet (FeroSul) zolpidem 10 mg tablet 10 mg PO HS 10/22/22 12/31/22 History Exam Narrative Exam Narrative: On exam cachectic appearing female. Her arms are extremely thin with muscle w asting. She had somewhat of a brownish case tinge to her skin. Very gaunt with loss of facial musculature. Sitting her upright her lung exam notable for end expiratory crackles on the left base otherwise clear in the upper lung arguello on the right. Heart sounds were strong and there was no significant murmur. Her abdomen flat soft nontender to palpation in all 4 quadrants. The lower extremit ies showed a trace amount of fluid and not as much muscle wasting is in the upper extremities. The distal pulses appear normal with good perfusion. There was no skin ulceration. Neurologically she is alert and intact. Smiles readily affect appears normal. There are no focal motor deficits. Results Imaging Additional studies: FINDINGS: CHEST: Pulmonary Arteries: No evidence of filling defect to suggest pulmonary emboli. Tracheobronchial tree: Patent where visualized. Mediastinum and Kelsie: No dominant adenopathy or fluid collection. Pulmonary parenchyma: Left upper lobe mass and volume loss.? Large thick-walled cavity left upper lobe communicates with bronchi.? Multiple left upper lobe nodules.? Right upper lobe patchy infiltrates versus nodules.? At lobular septal thickening and posterior left lower lobe with multiple nodular areas could also represent metastatic disease.? Pleura: No? pneumothorax. ? Small left pleural effusion. Heart: The heart is not dilated. No coronary artery calcifications are seen. Ascending aorta measures 4 cm.? Bones: Normal. Tubes, Catheters, and Lines:? ? Port over right chest. ABDOMEN: Liver: Normal density. Several low-density lesions could represent hemangiomas and cysts.? Metastases not excluded. Portal, Superior Mesenteric, and Splenic Veins: Unremarkable.? Gallbladder and Biliary Tract: Mild intrahepatic and extrahepatic dilation.? ? Gallbladder unremarkable. Pancreas: Normal density, no abnormal calcifications or inflammatory process. Spleen: Normal. Adrenals: Bilateral adrenal masses.? Kidneys: Normal size, contour and axis. No radiodense stones or obstructive uropathy. No masses seen. Abdominal Aorta: Abdominal portion non-dilated. Bowel: Evaluation of the bowel is limited by lack surrounding intra-abdominal fat.? Large quantity of stool in the rectum.? Question of rectal wall thickening.? No evidence of abscess.? Mass not excluded.? Large quantity of stool also seen in descending and sigmoid colon. ? Appendix is not seen..? Small bowel unremarkable.? Peritoneal Cavity: No ascites, collection or mesenteric inflammatory response. Lymph Nodes: Within normal limits. Bones: L4 spondylolysis and L4-5 spondylolisthesis.? No compression fractures.? No lytic or blastic lesions. Soft Tissues: Unremarkable. PELVIS: Bladder: Symmetric distention, no gross wall thickening. Reproductive Organs: Unremarkable as visualized. Lymph Nodes: Within normal limits. Bones: Left hip prosthesis creates significant artifact in lower pelvis.? .? IMPRESSION: 1. No evidence of pulmonary embolism. Left upper lobe mass.? Findings consistent with bilateral pulmonary metastases. 2. Large quantity of stool in rectum, descending and sigmoid colon..? Question of rectal wall thickening.? Mass not excluded.? ? No evidence of small bowel obstruction or bowel wall edema. 3. Findings called to Dr. Wahl of the emergency department. Labs 12/31/22 13:40 12/31/22 13:40 Labs: Laboratory Results - last 24 hr 12/31/22 12/31/22 12/31/22 13:40 13:40 13:40 WBC 3.21 L RBC 2.25 L Hgb 6.6 L* Hct 19.7 L* MCV 88 MCH 29.3 MCHC 33.5 RDW 14.5 Plt Count 763 H* MPV 9.5 Immature Gran % 0.0 Neutrophils % 40.0 Band Neutrophils % 6 Lymphocytes % 35.0 Atypical Lymphs % 6 Monocytes % 10.0 Eosinophils % 1.0 Basophils % 1.0 Metamyelocytes % 1 Nucleated RBC % 0.0 Absolute Neutrophils 1.48 Absolute Lymphocytes 1.32 Absolute Monocytes 0.32 Absolute Eosinophils 0.03 Absolute Basophils 0.03 RBC Morphology Normal PT 10.3 INR 1.0 APTT 30.6 Sodium 127 L Potassium 3.1 L Chloride 93 L Carbon Dioxide 25.6 Anion Gap 8.4 BUN 16 Creatinine 0.7 Est GFR (CKD-EPI 2020) 96.52 Glucose 103 Calcium 8.5 Magnesium 1.3 L Total Bilirubin 0.5 AST 16 ALT 16 Alkaline Phosphatase 92 Troponin I < 50 Total Protein 5.5 L Albumin 1.9 L TSH 6.31 H Patient ABO/Rh Antibody Screen Crossmatch 12/31/22 13:40 WBC RBC Hgb Hct MCV MCH MCHC RDW Plt Count MPV Immature Gran % Neutrophils % Band Neutrophils % Lymphocytes % Atypical Lymphs % Monocytes % Eosinophils % Basophils % Metamyelocytes % Nucleated RBC % Absolute Neutrophils Absolute Lymphocytes Absolute Monocytes Absolute Eosinophils Absolute Basophils RBC Morphology PT INR APTT Sodium Potassium Chloride Carbon Dioxide Anion Gap BUN Creatinine Est GFR (CKD-EPI 2020) Glucose Calcium Magnesium Total Bilirubin AST ALT Alkaline Phosphatase Troponin I Total Protein Albumin TSH Patient ABO/Rh A Positive Antibody Screen NEGATIVE Crossmatch See Detail Last Vital Signs Temp 37.8 C H 12/31/22 17:54 Pulse 86 12/31/22 18:21 Resp 18 12/31/22 18:21 BP 92/60 L 12/31/22 18:21 Pulse Ox 100 12/31/22 18:21 Time Spent Time spent with Patient: 40-54 minutes Time was spent: preparing to see the patient(eg.review tests), obtaining and/or reviewing separately otained hiistory, ordering medications,tests, procedures, referring, communicating with other health child day care teacher, indepentently interpreting results, counseling the patient and care coordination
[2022-12-31 20:58] LABS: HCT 27.4 % (36.0-46.0); HGB 9.2 g/dL (11.2-15.7); MCHC 33.6 % (32.0-36.0); MCV 86 fL (80-95); MPV 9.3 fL (8.0-11.0); RBC 3.17 10^6/uL (3.93-5.22); RDW 14.5 % (11.7-14.6); RDW-SD 44.9 fL; WBC 4.51 10^3/uL (4.4-10.8)
[2022-12-31 21:15] LABS: Troponin I < 50 ng/L (<or=60)
[2022-12-31] MEDS: POTASSIUM CHLORIDE/D5-0.9%NACL 1,000 ML 100 MEQ IV (21:19)
[2022-12-31 21:28] LABS: Absolute Monocyte Count 1.13 10^3/uL (0.1-0.8); Absolute Neutrophil Count 2.48 10^3/uL (1.2-6.7); Bands % 5; Diff Comment Manual Differential; Platelet Count 657 10^3/uL (130-400); RBC Morphology Normal
[2022-12-31] MEDS: Pantoprazole 40 MG VIAL IVP (23:08)
[2022-12-31] MEDS: MAGNESIUM SULFATE 4 GM/100 ML BAG IVPB (23:09)
[2022-12-31] MEDS: POTASSIUM CHLORIDE 20 MEQ/100 ML BAG 50 MEQ IVPB (23:14)
[2023-01-01] VITALS (183 sets, daily range): BP systolic 68–131; BP diastolic 44–98; PULSE 82–108; RESP 11–32; TEMP 36.7–38.1; O2SAT 92–100; BMI 17.2
[2023-01-01 06:28] LABS: Abs Immature Grans 0.03 10^3/uL (0.0-0.06); HCT 26.1 % (36.0-46.0); HGB 8.9 g/dL (11.2-15.7); MCH 29.9 pg (27.0-33.0); MCHC 34.1 % (32.0-36.0); MCV 88 fL (80-95); MPV 9.6 fL (8.0-11.0); RBC 2.98 10^6/uL (3.93-5.22); RDW 14.7 % (11.7-14.6); RDW-SD 45.4 fL; WBC 4.27 10^3/uL (4.4-10.8)
[2023-01-01 06:48] LABS: BUN 11 mg/dL (7-18); CREATININE 0.5 mg/dL (0.55-1.02); Chloride 100 mmol/L (98-107); Estimated GFR 104.67 (mL/min/1.73m2); Glucose 99 mg/dL (74-106); Magnesium 2.4 mg/dL (1.8-2.4); Potassium 4.3 mmol/L (3.5-5.1); Sodium 134 mmol/L (136-145)
[2023-01-01 06:54] LABS: Absolute Basophil Count 0.13 10^3/uL (0.0-0.2); Absolute Eosinophil Count 0.09 10^3/uL (0.0-0.7); Absolute Lymphocyte Count 1.15 10^3/uL (1.2-3.4); Absolute Monocyte Count 1.11 10^3/uL (0.1-0.8); Absolute Neutrophil Count 1.79 10^3/uL (1.2-6.7); Bands % 3; Diff Comment Manual Differential; Hypochromasia 2+; Platelet Count 690 10^3/uL (130-400)
[2023-01-01 06:56] LABS: Poikilocytes 2+
--- NOTE | 2023-01-01 08:35 | W.ANESPRE ---
General Info Date of Service Date Performed: 01/01/23 Height: 5 ft 3 in Weight: 44.1 kg Body Mass Index (BMI): 17.2 Surgical Procedure: Operation Date: 01/01/23 09:50 Proposed Procedure Side Surgeon p Gastroscopy Anika Jain, DO Meds Allergies and Home Medications Allergies Allergy/AdvReac Type Severity Reaction Status Date / Time No Known Allergies Allergy Verified 12/31/22 13:09 Home Medication Medication Instructions Recorded albuterol sulfate 90 mcg/actuation 1 - 2 puff inhalation Q6H PRN 10/22/22 aerosol inhaler aspirin 81 mg chewable tablet 81 mg PO DAILY 10/22/22 atorvastatin 40 mg tablet 40 mg PO HS 10/22/22 azithromycin 250 mg tablet 250 mg PO DIRECTED 10/22/22 ferrous sulfate 325 mg (65 mg 325 mg PO TID 10/22/22 iron) tablet (FeroSul) zolpidem 10 mg tablet 10 mg PO HS 10/22/22 Current Visit Medications: Current Medications Generic Name Dose Route Start Last Admin Trade Name Freq PRN Reason Stop Dose Admin Acetaminophen 650 mg 12/31/22 15:41 Acetaminophen 650 Mg Supp WI Q4H PRN PRN Al Hydrox/Mg Hydrox/Simethicone 30 ml 12/31/22 15:41 Mylanta Suspension 30 Ml Cup PO Q2H PRN PRN Albuterol Sulfate 2.5 mg 12/31/22 15:36 Albuterol 2.5 Mg/3 Ml Inh Soln Vial UPD Q2H PRN PRN Dimethicone/Zinc Oxide 0 gm 12/31/22 15:36 Inder Protect Cream 142 Gm Tube TP PRN PRN Docusate Sodium 100 mg 12/31/22 15:41 Docusate Sodium 100 Mg Cap PO TID PRN PRN IV Miscellaneous Supplies 1 each 12/31/22 13:15 Iv Access IV DIRECTED KRISHNA Iohexol 100 ml 12/31/22 15:00 12/31/22 14:48 Omnipaque 350 Mg/Ml 500 Ml Btl-Imaging Package IJ 01/30/23 23:59 100 ml DIRECTED KRISHNA Administration Magnesium Hydroxide 30 ml 12/31/22 15:41 Milk Of Magnesia 30 Ml Cup PO DAILY PRN PRN Oxycodone HCl 5 mg 01/01/23 07:28 Oxycodone 5 Mg Tab PO Q4H PRN PRN Pantoprazole Sodium 40 mg 12/31/22 22:00 12/31/22 23:08 Pantoprazole 40 Mg Vial IVP 40 mg BID KRISHNA Administration Polyethylene Glycol 17 gm 12/31/22 15:41 Polyethylene Glycol 3350 17 Gm Packet PO DAILY PRN PRN Constipation Sodium Chloride 0 ml 12/31/22 13:09 12/31/22 20:37 Normal Saline Flush 10 Ml Syr IVP 10 ml PRN PRN Administration Sodium Chloride 50 ml 12/31/22 15:00 Normal Saline - Diluent 50 Ml Vial IV .FOR DI USE KRISHNA Zolpidem Tartrate 10 mg 01/01/23 02:52 Zolpidem 5 Mg Tab PO HS PRN PRN Insomnia PFSH Active Problems Active Problems: Problem Status Onset Code Acute GI bleeding K92.2 Hypotension I95.9 Abdominal wall mass of periumbilical region R19.05 Nuclear sclerotic cataract of left eye H25.12 Cortical cataract of left eye H26.9 Nuclear sclerotic cataract of right eye H25.11 Cortical cataract of right eye H26.9 Malignant neoplasm of unspecified part of unspecified bronchus or lung C34.90 Thrombocytosis, unspecified D75.839 Transient cerebral ischemic attack, unspecified G45.9 Insomnia, unspecified G47.00 Medical History Medical History Alcohol abuse Carbuncle COVID-19 (~07/2022) asymptomatic History of stroke 07/2022 Surgical History Surgical History History of bronchoscopy History of carpal tunnel repair Hx of appendectomy Hx of hemorrhoidectomy Tobacco Smoking/Tobacco Use Status: Former Tobacco Use Alcohol Alcohol Intake: former Substance Use Details: weekly Vital Signs and Lab Results Vital Signs Most Recent Vital Signs in EMR: Most Recent Vital Signs Temp Pulse Resp BP Pulse Ox 36.7 C 89 20 104/65 99 01/01/23 04:51 01/01/23 05:03 01/01/23 05:03 01/01/23 05:03 01/01/23 05:03 Lab Results 01/01/23 05:48 01/01/23 05:48 Blood Type / Crossmatch: Patient ABO/Rh A Positive 12/31/22 Antibody Screen NEGATIVE 12/31/22 Crossmatch See Detail 12/31/22 Complete Blood Count: White Blood Count 4.27 10^3/uL (4.4-10.8) L 01/01/23 05:48 Red Blood Count 2.98 10^6/uL (3.93-5.22) L 01/01/23 05:48 Hemoglobin 8.9 g/dL (11.2-15.7) L 01/01/23 05:48 Hematocrit 26.1 % (36.0-46.0) L 01/01/23 05:48 Platelet Count 690 10^3/uL (130-400) H 01/01/23 05:48 Complete Metabolic Panel: Sodium 134 mmol/L (136-145) L 01/01/23 05:48 Potassium 4.3 mmol/L (3.5-5.1) 01/01/23 05:48 Chloride 100 mmol/L (98-107) 01/01/23 05:48 Carbon Dioxide 27.0 mmol/L (21.0-32.0) 01/01/23 05:48 BUN 11 mg/dL (7-18) 01/01/23 05:48 Creatinine 0.5 mg/dL (0.55-1.02) L 01/01/23 05:48 Est GFR (CKD-EPI 2020) 104.67 (mL/min/1.73m2) 01/01/23 05:48 Magnesium 2.4 mg/dL (1.8-2.4) 01/01/23 05:48 Calcium 8.0 mg/dL (8.5-10.1) L 01/01/23 05:48 Albumin 1.9 g/dL (3.4-5.0) L 12/31/22 13:40 Glucose 99 mg/dL (74-106) 01/01/23 05:48 Liver Function Panel: Alanine Aminotransferase (ALT/SGPT) 16 U/L (14-59) 12/31/22 13:40 Aspartate Amino Transf (AST/SGOT) 16 U/L (15-37) 12/31/22 13:40 Coagulation Panel: INR International Normalized Ratio 1.0 (0.9-1.1) 12/31/22 13:40 Prothrombin Time 10.3 sec (9.3-11.0) 12/31/22 13:40 Activated Partial Thromboplast Time 30.6 sec (21.5-31.9) 12/31/22 13:40 Cardiac Panel: Troponin I < 50 ng/L (<or=60) 12/31/22 Arterial Blood Gas: No Data to Display Venous Blood Gas: No Data to Display Pancreas Panel: No Data to Display Thyroid Panel: Thyroid Stimulating Hormone (TSH) 6.31 uIU/mL (0.36-3.74) H 12/31/22 13:40 Infectious Disease: No Data to Display Blood Cultures: No Data to Display Toxicology Panel: No Data to Display Imaging and Studies Imaging and Studies Study information below may be from another EMR and interpreted by another provider. Please see original notes in EMR for more complete details. EKG Summary: 12/31/2022: Conclusion Sinus rhythm...normal P axis, V-rate 60- 99 Atrial premature complex...SV complex w/ short R-R interval Low voltage, extremity leads...all extremity leads <0.5mV Anesthesia Assessment and Plan Anesthesia History Personal History: No History of Anesthesia Complications Family History: No Family History of Anesthesia Complications Exercise Tolerance Exercise Tolerance: Metabolic Equivalents>4 Pertinent Negatives Pertinent Negatives: No Symptoms of GERD and No Major Cardiovascular Symptoms or Complaints Cardiac & Pulmonary Exam Cardiac Exam: Normal S1/S2 Heart Sounds Pulmonary Exam: Wheezing Present and Rhonchi Present Cardiac and Pulmonary Comment:: Bilateral Implantable Cardiac Device Does patient have a Pacemaker or an ICD?: No Airway Exam Known Difficult Airway: No Mallampati Class: 2 Mouth Opening: Normal (> 3cm) Thyromental Distance: Greater than 3 cm Neck Range of Motion: Full ROM Neck Circumference: Normal Teeth Condition: Normal Dentition ASA Classification ASA Score: ASA 4 Emergency Case?: Yes NPO Status NPO Status: NPO Clears >2 hours, Solids >8 hours Anesthesia Plan Resuscitation Status: DNR Fully Suspended During Perioperative Period Anesthesia Technique: General Anesthesia Airway Planned: Natural Airway Monitors Used: Standard Monitors
[2023-01-01] MEDS: Albuterol 2.5 MG/3 ML INH SOLN VIAL UPD (09:12)
--- NOTE | 2023-01-01 09:16 | W.PM.PROGNOT ---
Date of Service Date of service: 01/01/23 Time of Service: 09:16 Assessment and Plan Assessment and plan (1) Acute GI bleeding: Status: Acute Assessment and plan: Informed consent is obtained for the procedural (explained in simple layman's terms that the pt. and/or family could understand) explaining risks vs benefits and alternatives to the procedure and consequences if we do not do the procedure and need/rational for the procedure. Risks include but are not limited to: bleeding, infection, perforation of esophagus, stomach, colon, small intestines, bronchus or trachea, or PTX. This would necessitate emergency surgery to repair the damage w/ possible ostomy; and other associated complications w/ the required surgery. Also complications of anesthesia including aspiration, SD/CVA/. pt is on IV protonix BID CT: lg hiatal hernia labs reviewed stable for procedure (2) Abdominal wall mass of periumbilical region: Status: Acute (3) Malignant neoplasm of unspecified part of unspecified bronchus or lung: Status: Acute (4) Thrombocytosis, unspecified: Status: Acute (5) Transient cerebral ischemic attack, unspecified: Status: Chronic (6) Insomnia, unspecified: Status: Acute (7) Alcohol abuse: (8) History of stroke: Subjective Subjective Interval history since last seen: Patient states she is feeling good today she is not having any nausea. She is not having any abdominal pain She has multiple dark black bowel movements over the night ICU. RN saying they were heme tested for as negative. She did receive 2 units of blood yesterday. Informed consent is obtained for the procedural (explained in simple layman's terms that the pt. and/or family could understand) explaining risks vs benefits and alternatives to the procedure and consequences if we do not do the procedure and need/rational for the procedure. Risks include but are not limited to: bleeding, infection, perforation of esophagus, stomach, colon, small intestines, bronchus or trachea, or PTX. This would necessitate emergency surgery to repair the damage w/ possible ostomy; and other associated complications w/ the required surgery. Also complications of anesthesia including aspiration, SD/CVA/. Exam Const Other: Abdomen is soft and nontender today Objective Last Vital Signs Temp 37.7 C H 01/01/23 07:25 Pulse 88 01/01/23 08:00 Resp 19 01/01/23 08:40 BP 103/68 01/01/23 08:15 Pulse Ox 95 01/01/23 08:40 Laboratory Results - last 24 hr 12/31/22 12/31/22 12/31/22 13:40 13:40 13:40 WBC 3.21 L RBC 2.25 L Hgb 6.6 L* Hct 19.7 L* MCV 88 MCH 29.3 MCHC 33.5 RDW 14.5 Plt Count 763 H* MPV 9.5 Immature Gran % 0.0 Neutrophils % 40.0 Band Neutrophils % 6 Lymphocytes % 35.0 Atypical Lymphs % 6 Monocytes % 10.0 Eosinophils % 1.0 Basophils % 1.0 Metamyelocytes % 1 Nucleated RBC % 0.0 Absolute Neutrophils 1.48 Absolute Lymphocytes 1.32 Absolute Monocytes 0.32 Absolute Eosinophils 0.03 Absolute Basophils 0.03 RBC Morphology Normal Hypochromasia Poikilocytosis PT 10.3 INR 1.0 APTT 30.6 Sodium 127 L Potassium 3.1 L Chloride 93 L Carbon Dioxide 25.6 Anion Gap 8.4 BUN 16 Creatinine 0.7 Est GFR (CKD-EPI 2020) 96.52 Glucose 103 Calcium 8.5 Magnesium 1.3 L Total Bilirubin 0.5 AST 16 ALT 16 Alkaline Phosphatase 92 Troponin I < 50 Total Protein 5.5 L Albumin 1.9 L TSH 6.31 H Patient ABO/Rh Antibody Screen Crossmatch 12/31/22 12/31/22 12/31/22 13:40 16:10 20:45 WBC RBC Hgb Hct MCV MCH MCHC RDW Plt Count MPV Immature Gran % Neutrophils % Band Neutrophils % Lymphocytes % Atypical Lymphs % Monocytes % Eosinophils % Basophils % Metamyelocytes % Nucleated RBC % Absolute Neutrophils Absolute Lymphocytes Absolute Monocytes Absolute Eosinophils Absolute Basophils RBC Morphology Hypochromasia Poikilocytosis PT INR APTT Sodium Potassium Chloride Carbon Dioxide Anion Gap BUN Creatinine Est GFR (CKD-EPI 2020) Glucose Calcium Magnesium Total Bilirubin AST ALT Alkaline Phosphatase Troponin I Cancelled < 50 Total Protein Albumin TSH Patient ABO/Rh A Positive Antibody Screen NEGATIVE Crossmatch See Detail 12/31/22 01/01/23 01/01/23 20:45 05:48 05:48 WBC 4.51 4.27 L RBC 3.17 L 2.98 L Hgb 9.2 L D 8.9 L Hct 27.4 L 26.1 L MCV 86 88 MCH 29.0 29.9 MCHC 33.6 34.1 RDW 14.5 14.7 H Plt Count 657 H 690 H MPV 9.3 9.6 Immature Gran % 0.0 See Differential Neutrophils % 50.0 39.0 Band Neutrophils % 5 3 Lymphocytes % 20.0 27.0 Atypical Lymphs % Monocytes % 25.0 26.0 Eosinophils % 0.0 2.0 Basophils % 0.0 3.0 Metamyelocytes % Nucleated RBC % 0.0 0.0 Absolute Neutrophils 2.48 1.79 Absolute Lymphocytes 0.90 L 1.15 L Absolute Monocytes 1.13 H 1.11 H Absolute Eosinophils 0.00 0.09 Absolute Basophils 0.00 0.13 RBC Morphology Normal See Below Hypochromasia 2+ Poikilocytosis 2+ PT INR APTT Sodium 134 L Potassium 4.3 D Chloride 100 Carbon Dioxide 27.0 Anion Gap 7.0 BUN 11 Creatinine 0.5 L Est GFR (CKD-EPI 2020) 104.67 Glucose 99 Calcium 8.0 L Magnesium 2.4 Total Bilirubin AST ALT Alkaline Phosphatase Troponin I Total Protein Albumin TSH Patient ABO/Rh Antibody Screen Crossmatch Time Spent with Patient Time Spent with Patient: >50 minutes Time was spent: preparing to see the patient(eg.review tests), obtaining and/or reviewing separately otained hiistory, ordering medications,tests, procedures, referring, communicating with other health healthcare manager, indepentently interpreting results, counseling the patient and care coordination
[2023-01-01] MEDS: Normal Saline Flush 10 ML SYR IVP ×3 (09:21→21:18)
[2023-01-01] MEDS: Lactated Ringers 1,000 ML 80 ML IV (09:31)
--- NOTE | 2023-01-01 10:04 | W.PM.ENDDOP ---
Date of service: 01/01/23 Time of Service: 10:04 Endoscopy Report DATE OF PROCEDURE: 01/01/23 PRE-OP DIAGNOSIS: GI bleed POST-OP DIAGNOSIS: other (severe esophagitis/esophageal ulcers/lg hiatal hernia/mild duodenitis ) SURGEON: Anika Jain ANESTHESIA TYPE: General:No Airway ESTIMATED BLOOD LOSS: 0 PATHOLOGY: none sent COMPLICATIONS: None DISPOSITION: PACU PROCEDURE DESCRIPTION: After informed consent was obtained the patient was take to the procedure room and placed in a supine position. Monitors were applied and a time out was done. The patients name, date of , procedure type, allergies to medications and metal in their body was reviewed. A bite block was placed and the patient was sedated. Once sedated and comfortable the gastroscope was advanced through the oropharynx which was grossly normal into the esophagus. The proximal and mid-esophagus were nl. The distal esophagus shows: A large hiatal hernia. At least two thirds of her stomach is herniated into the chest. She has erosive esophagitis with ulceration at the GE junction. The area is friable and bleeds to the touch. However prior to passing the scope there was no active bleeding. There are no varices. There is no stenosis.. The scope was advanced into the stomach and through the pylorus into the 3rd portion of the duodenum. The duodenum: mild duodenitis. There are no ulcers or gastritis in the body of the stomach. There is no polyps or masses. There is no signs of active or old bleeding. The scope was retroflexed. The cardia and fundus were noted to be normal. The Z line was irregular. The scope was removed and the patient was woken up and taken back to [facility] in stable condition. No biopsies were done today to decrease anesthesia time/poor respiratory status. Patient went to PACU in stable condition. Continue medical management.
[2023-01-01] MEDS: Sucralfate 1 GM TAB PO ×3 (10:28→21:17)
--- NOTE | 2023-01-01 10:36 | W.ANESPOSTOP ---
Postoperative Evaluation Date, Time and Location Date Performed: 01/01/23 Time Performed: 10:36 Patient Location: Intensive Care Unit Vital Signs Most Recent Imported Vital Signs: Most Recent Vital Signs Temp Pulse Resp BP Pulse Ox 37.7 C H 88 19 103/68 95 01/01/23 07:25 01/01/23 08:00 01/01/23 08:40 01/01/23 08:15 01/01/23 08:40 Pain Score Most Recent Pain Score: Most Recent Pain Score Pain Level 3 01/01/23 07:25 Assessment Mental Status: Awake (Alert & Oriented to Patient Baseline) Airway and Respiratory Function: Patent airway with normal (patient baseline) respiratory exam Cardiovascular Function: Hemodynamically Stable Hydration Status: Adequately Hydrated Nausea & Vomiting: No Nausea or Vomiting Pain: Pt. Denies Any Pain Peripheral Nerve Block: Patient did not receive a nerve block
[2023-01-01] MEDS: oxyCODONE 5 MG TAB PO ×3 (10:38→21:17)
[2023-01-01] MEDS: Pantoprazole 40 MG VIAL IVP ×2 (10:38→21:18)
--- NOTE | 2023-01-01 10:42 | W.PM.PROGNOT ---
Date of Service Date of service: 01/01/23 Time of Service: 10:42 Assessment and Plan Assessment and plan (1) Acute GI bleeding: Status: Acute Assessment and plan: No active bleeding on EGD this am, but does have evidence of gastritis and an esophageal ulcer. Continue PPI/carafate. Defer when to start diet to general surgery. (2) Anemia associated with acute blood loss: Status: Acute Assessment and plan: s/p transfusion of 2 units of pRBCs. H/H stable. Recheck H/H at 2 pm. (3) Gastritis: Status: Acute Assessment and plan: As above (4) Esophageal ulcer: Status: Acute Assessment and plan: As above (5) Hyponatremia: Status: Acute Assessment and plan: I suspect this is due to chemotherapy, decreased PO intake. Monitor as we re-initiate a diet. (6) Malignant neoplasm of unspecified part of unspecified bronchus or lung: Status: Acute Assessment and plan: on palliative chemotherapy. 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 C/s palliative care. (7) DVT prophylaxis: Status: Acute Assessment and plan: SCDs Hold chemical DVT ppx in setting of acute bleeding (8) Discharge planning issues: Status: Acute Assessment and plan: DNR/DNI C/s PT and palliative care. Transfer out of the ICU. Subjective Subjective Interval history since last seen: S/p EGD this am - esophageal and gastritis, no active bleeding. The patient feels better. Reports cough which became productive of green sputum 2 weeks ago. Denies dizziness, CP, SOB, n/v, abdominal pain. Interested in having something to drink. Exam Narrative Exam Narrative: General: Pleasant middle-aged female, cachectic, A&Ox3, comfortable in bed HEENT: EOMI, MMM Heart: RRR, no m/r/g Lungs: rales at B bases, some scattered rhonchi as well. Abdomen: soft, nontender, nondistended Extremities: no edema BLEs Objective Last Vital Signs Temp 37.7 C H 01/01/23 07:25 Pulse 88 01/01/23 08:00 Resp 19 01/01/23 08:40 BP 103/68 01/01/23 08:15 Pulse Ox 95 01/01/23 08:40 Laboratory Results - last 24 hr 12/31/22 12/31/22 12/31/22 13:40 13:40 13:40 WBC 3.21 L RBC 2.25 L Hgb 6.6 L* Hct 19.7 L* MCV 88 MCH 29.3 MCHC 33.5 RDW 14.5 Plt Count 763 H* MPV 9.5 Immature Gran % 0.0 Neutrophils % 40.0 Band Neutrophils % 6 Lymphocytes % 35.0 Atypical Lymphs % 6 Monocytes % 10.0 Eosinophils % 1.0 Basophils % 1.0 Metamyelocytes % 1 Nucleated RBC % 0.0 Absolute Neutrophils 1.48 Absolute Lymphocytes 1.32 Absolute Monocytes 0.32 Absolute Eosinophils 0.03 Absolute Basophils 0.03 RBC Morphology Normal Hypochromasia Poikilocytosis PT 10.3 INR 1.0 APTT 30.6 Sodium 127 L Potassium 3.1 L Chloride 93 L Carbon Dioxide 25.6 Anion Gap 8.4 BUN 16 Creatinine 0.7 Est GFR (CKD-EPI 2020) 96.52 Glucose 103 Calcium 8.5 Magnesium 1.3 L Total Bilirubin 0.5 AST 16 ALT 16 Alkaline Phosphatase 92 Troponin I < 50 Total Protein 5.5 L Albumin 1.9 L TSH 6.31 H Patient ABO/Rh Antibody Screen Crossmatch 12/31/22 12/31/22 12/31/22 13:40 16:10 20:45 WBC RBC Hgb Hct MCV MCH MCHC RDW Plt Count MPV Immature Gran % Neutrophils % Band Neutrophils % Lymphocytes % Atypical Lymphs % Monocytes % Eosinophils % Basophils % Metamyelocytes % Nucleated RBC % Absolute Neutrophils Absolute Lymphocytes Absolute Monocytes Absolute Eosinophils Absolute Basophils RBC Morphology Hypochromasia Poikilocytosis PT INR APTT Sodium Potassium Chloride Carbon Dioxide Anion Gap BUN Creatinine Est GFR (CKD-EPI 2020) Glucose Calcium Magnesium Total Bilirubin AST ALT Alkaline Phosphatase Troponin I Cancelled < 50 Total Protein Albumin TSH Patient ABO/Rh A Positive Antibody Screen NEGATIVE Crossmatch See Detail 12/31/22 01/01/23 01/01/23 20:45 05:48 05:48 WBC 4.51 4.27 L RBC 3.17 L 2.98 L Hgb 9.2 L D 8.9 L Hct 27.4 L 26.1 L MCV 86 88 MCH 29.0 29.9 MCHC 33.6 34.1 RDW 14.5 14.7 H Plt Count 657 H 690 H MPV 9.3 9.6 Immature Gran % 0.0 See Differential Neutrophils % 50.0 39.0 Band Neutrophils % 5 3 Lymphocytes % 20.0 27.0 Atypical Lymphs % Monocytes % 25.0 26.0 Eosinophils % 0.0 2.0 Basophils % 0.0 3.0 Metamyelocytes % Nucleated RBC % 0.0 0.0 Absolute Neutrophils 2.48 1.79 Absolute Lymphocytes 0.90 L 1.15 L Absolute Monocytes 1.13 H 1.11 H Absolute Eosinophils 0.00 0.09 Absolute Basophils 0.00 0.13 RBC Morphology Normal See Below Hypochromasia 2+ Poikilocytosis 2+ PT INR APTT Sodium 134 L Potassium 4.3 D Chloride 100 Carbon Dioxide 27.0 Anion Gap 7.0 BUN 11 Creatinine 0.5 L Est GFR (CKD-EPI 2020) 104.67 Glucose 99 Calcium 8.0 L Magnesium 2.4 Total Bilirubin AST ALT Alkaline Phosphatase Troponin I Total Protein Albumin TSH Patient ABO/Rh Antibody Screen Crossmatch Time Spent with Patient Time Spent with Patient: 25-34 minutes Time was spent: preparing to see the patient(eg.review tests), obtaining and/or reviewing separately otained hiistory, ordering medications,tests, procedures, referring, communicating with other health lawn care specialist, indepentently interpreting results, counseling the patient and care coordination
[2023-01-01] MEDS: Metoclopramide 10 MG TAB PO ×2 (11:51→15:33)
[2023-01-01] MEDS: levoFLOXacin 750 MG/150 ML BAG 100 MG IVPB (11:51)
[2023-01-01] MEDS: Lactated Ringers 250 ML IV (13:35)
[2023-01-01] MEDS: Lactated Ringers 250 ML 999 ML IV (13:55)
[2023-01-01 13:57] LABS: Lactate 0.7 mmol/L (0.6-1.4)
--- NOTE | 2023-01-01 14:16 | PCNE_ITS ---
Date of service: 01/01/23 Time of Service: 13:00 History of Present Illness Narrative: Ms. Gallagher is a 62 y/o F currently inpatient at [facility] 2/2 suspected GI bleed w/hypotension and anemia; PMHx sig for metastatic non-small cell lung cancer w/mets to bone, bilat adrenal; Hospital Course: presented to [facility] ED s/p NCCC w/hypotension; highly suspicious of GI bleed; surgical consult identified chronic GI hemorrhage, received pRBC tranfusions recommended, started PPI and carafate; endoscopy today w/no active bleeding, and with gastritis and esophageal ulcer; BP had been w/in normal li mits per pt however around noon today they began worsening, systolic in high 60's, no tachycardia or changes in consciousness or respirations; receiving bolus of LR and repeat lab draws throughout visit Aileen suffered from a stroke in July, at same time had COVID which she lost her sense of smell and taste, throughout this course she was diagnosed with non- small cell lung cancer after suspicious imaging, found to be metastatic to bones and bilateral adrenal glands, then had hip fracture secondary to metastasis site. On November 12 started chemotherapy with [facility], followed by Dr. Beard, received 1 cycle with improved imaging, was to receive cycle yesterday however was unable to due to hypotension. currently reports scheduled for chemotherapy 2 Mondays and around the Saturday off; at this time she is interested in continuing therapy, is aware that they are palliative in nature with no chance of curative therapies, is aware that she can stop therapy at any time, however she would like to see if there is ongoing response to current chemotherapy regimen. Next infusion scheduled for January 14 and January 21. Family would like to wait on further conversations regarding chemotherapy at this time. - side effects from treatment so far has been diarrhea, has started taking Imod ium, unclear response due to current hospitalization Reports decreased appetite since July's episode with COVID, is aware that she has lost a pound since that time. She is working with dietitian. [facility] [[email or web address]], her son Vincent helps prepare meals, eat goal of 5 boost per day with instant [place] breakfast as well, trial of Remeron with no effect on sleep or appetite. At this time would like to continue oral replacement of nutrition, has never been asked about feeding tube before, is not up for discussion on this today due to current status. Reports ongoing malaise and fatigue, sleep has been a problem for a very long time, no acute issues or changes Hip pain remains controlled, not much pain Lives alone in [place], has friends which visit often, son Vincent and [id number] Brittany both provide significant care and both have experience as caregivers, she feels extremely supported by them. Mother Concepcion, 94 years old, now lives in retirement [facility], [id number]-ele Brittany works there. Reports she has completed advanced directives in the past, son Vincent listed as DURABLE POWER OF SHUTTLELESS LOOM WEAVER. Would like to continue conversations at a later date Assessment and Plan Assessment and plan (1) Acute GI bleeding: Status: Acute Assessment and plan: EGD this am - no active bleeding continue PPI and carafate (2) Anemia associated with acute blood loss: Status: Acute Assessment and plan: Status post transfusion of PRBCs, 2 units continue monitoring H&H (3) Esophageal ulcer: Status: Acute (4) Gastritis: Status: Acute (5) Hypotension: Status: Acute Assessment and plan: Repeat labs, receiving LR throughout visit, previously controlled, will remain in ICU at this time (6) Insomnia, unspecified: Status: Acute Assessment and plan: Chronic, ongoing, no acute changes Remeron with no effect (7) Transient cerebral ischemic attack, unspecified: Status: Chronic (8) Metastatic non-small cell lung cancer: Status: Acute Assessment and plan: f/b Dr. Beard w/[facility] palliative chemo - carboplatin/nab-paclitaxel/pemrolizumab; positive response first cycle, will continue at this time f/u scheduled 01/14 w/[facility], infusion, nutrition; infusion 01/21 (9) Palliative care encounter: Status: Acute Assessment and plan: previously established DPOA as Vincent wishes to continue conversations regarding AD at future date, unsure of if she would want a FT, has never discussed this before started discussing w/son what she would like after her will aim for f/u on 01/21 or sooner via if desired Review of Systems Narrative: As per HPI PFSH All Active Problems (Updated 01/01/23 @ 14:32 by Che Emery NP) Palliative care encounter (Acute) Metastatic non-small cell lung cancer (Acute) Hyponatremia (Acute) Discharge planning issues (Acute) DVT prophylaxis (Acute) Esophageal ulcer (Acute) Gastritis (Acute) Anemia associated with acute blood loss (Acute) Acute GI bleeding (Acute) Hypotension (Acute) Abdominal wall mass of periumbilical region (Acute) Malignant neoplasm of unspecified part of unspecified bronchus or lung (Acute) Thrombocytosis, unspecified (Acute) Transient cerebral ischemic attack, unspecified (Chronic) Insomnia, unspecified (Acute) Medical History Alcohol abuse Carbuncle COVID-19 (~07/2022) asymptomatic History of stroke 07/2022 Surgical History History of bronchoscopy History of carpal tunnel repair Hx of appendectomy Hx of hemorrhoidectomy Social History Smoking/Tobacco Use Status: Former Tobacco Use Quit Date: 08/15/22 Smoking risk assessment performed?: Yes Alcohol Intake: former Details: weekly Do you feel safe at home: Yes Do you feel safe in your relationship?: Yes Exam Narrative Exam Narrative: General: 62-year-old female appears older than stated age, thin, cachectic, lying in bed throughout visit, with limited movement HEENT: normocephalic atraumatic, hearing within normal limit Chest: Mediport present right anterior chest Resp: Even and nonlabored, no coughing or wheezing; holding specimen cup with dark yellow-decker/ phlegm Extremities: BLE no edema Psych: fatigued, cooperative, makes appropriate eye contact; speech clear Results Last Vital Signs Temp 100.6 F H 01/01/23 13:55 Pulse 92 H 01/01/23 14:06 Resp 18 01/01/23 14:06 BP 98/63 L 01/01/23 14:06 Pulse Ox 98 01/01/23 14:01 Labs 01/01/23 14:17 01/01/23 05:48 Labs: Laboratory Results - last 24 hr 12/31/22 12/31/22 12/31/22 13:40 13:40 13:40 WBC RBC Hgb Hct MCV MCH MCHC RDW Plt Count MPV Immature Gran % Neutrophils % Band Neutrophils % Lymphocytes % Monocytes % Eosinophils % Basophils % Nucleated RBC % Absolute Neutrophils Absolute Lymphocytes Absolute Monocytes Absolute Eosinophils Absolute Basophils RBC Morphology Hypochromasia Poikilocytosis PT 10.3 INR 1.0 APTT 30.6 VBG Lactate Sodium 127 L Potassium 3.1 L Chloride 93 L Carbon Dioxide 25.6 Anion Gap 8.4 BUN 16 Creatinine 0.7 Est GFR (CKD-EPI 2020) 96.52 Glucose 103 Calcium 8.5 Magnesium 1.3 L Total Bilirubin 0.5 AST 16 ALT 16 Alkaline Phosphatase 92 Troponin I < 50 Total Protein 5.5 L Albumin 1.9 L TSH 6.31 H Patient ABO/Rh A Positive Antibody Screen NEGATIVE Crossmatch See Detail 12/31/22 12/31/22 12/31/22 16:10 20:45 20:45 WBC 4.51 RBC 3.17 L Hgb 9.2 L D Hct 27.4 L MCV 86 MCH 29.0 MCHC 33.6 RDW 14.5 Plt Count 657 H MPV 9.3 Immature Gran % 0.0 Neutrophils % 50.0 Band Neutrophils % 5 Lymphocytes % 20.0 Monocytes % 25.0 Eosinophils % 0.0 Basophils % 0.0 Nucleated RBC % 0.0 Absolute Neutrophils 2.48 Absolute Lymphocytes 0.90 L Absolute Monocytes 1.13 H Absolute Eosinophils 0.00 Absolute Basophils 0.00 RBC Morphology Normal Hypochromasia Poikilocytosis PT INR APTT VBG Lactate Sodium Potassium Chloride Carbon Dioxide Anion Gap BUN Creatinine Est GFR (CKD-EPI 2020) Glucose Calcium Magnesium Total Bilirubin AST ALT Alkaline Phosphatase Troponin I Cancelled < 50 Total Protein Albumin TSH Patient ABO/Rh Antibody Screen Crossmatch 01/01/23 01/01/23 01/01/23 05:48 05:48 13:45 WBC 4.27 L RBC 2.98 L Hgb 8.9 L Hct 26.1 L MCV 88 MCH 29.9 MCHC 34.1 RDW 14.7 H Plt Count 690 H MPV 9.6 Immature Gran % See Differential Neutrophils % 39.0 Band Neutrophils % 3 Lymphocytes % 27.0 Monocytes % 26.0 Eosinophils % 2.0 Basophils % 3.0 Nucleated RBC % 0.0 Absolute Neutrophils 1.79 Absolute Lymphocytes 1.15 L Absolute Monocytes 1.11 H Absolute Eosinophils 0.09 Absolute Basophils 0.13 RBC Morphology See Below Hypochromasia 2+ Poikilocytosis 2+ PT INR APTT VBG Lactate 0.7 Sodium 134 L Potassium 4.3 D Chloride 100 Carbon Dioxide 27.0 Anion Gap 7.0 BUN 11 Creatinine 0.5 L Est GFR (CKD-EPI 2020) 104.67 Glucose 99 Calcium 8.0 L Magnesium 2.4 Total Bilirubin AST ALT Alkaline Phosphatase Troponin I Total Protein Albumin TSH Patient ABO/Rh Antibody Screen Crossmatch
[2023-01-01 14:26] LABS: HCT 22.4 % (36.0-46.0); HGB 7.6 g/dL (11.2-15.7)
--- NOTE | 2023-01-01 14:26 | PDOC.CMIN ---
Date of service: 01/01/23 Time of Service: 14:26 Care Management Initial Assmt Initial Assessment REASON FOR HOSPITALIZATION:: GI Bleed, Hypokalemia, Hypomagnesemia PREVIOUS FUNCTIONAL STATUS/SOCIAL/FAMILY SUPPORTS:: Aileen lives alone in [place]. She shares her mom formerly lived with her and she was mom's caregiver but after several health issues, she became too ill to continue providing her mom's care. Her mother is now living in the [facility] in [place]. Aileen has a son iVncent and a [id number]-om-jrt Brittany who live nearby and help care for Aileen. 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 She is independent with her ADLs at baseline. Her son and [id number]-mj-gve help with meals and cinnamon grinder. CURRENT FUNCTIONAL STATUS:: Aileen is lying in bed when CM comes to meet with her. She is pleasant and easily engages in conversation. She states she was diagnosed with non small cell lung cancer a few months ago and started chemotherapy last month. She has since become very weak and is quite fatigued. She will be meeting with Palliative Care at some point today for a discussion around her goals of care. ADVANCE DIRECTIVES:: None on file but patient states her son Vincent is her POA. Has patient been provided with info about the portal/API?: No Did the patient sign up for the portal?: No CODE STATUS:: DNR/DNI INSURANCE COVERAGE / FINANCIAL ISSUES:: [employer] CURRENT HOME/COMMUNITY SERVICES/EQUIPMENT:: Home Health PT but patient has recently become too weak to participate in PT. She has a hospital bed and beside commode at home. She has a chemo port and receives palliative chemotherapy through [facility]. PRIMARY CARE PHYSICIAN:: Ashleigh Martinez POTENTIAL DISCHARGE NEEDS:: Follow up appointments with PCP and [facility] Oncology, resumption of PT, and further evaluation of needs. PATIENT/FAMILY EDUCATION NEEDS:: Review of discharge instructions including medications, limitations and follow up plan of care; discuss Ask Me Three and self management. ANTICIPATED BARRIERS TO DISCHARGE:: None. TRANSPORTATION:: Dependent on disposition. PLAN:: Plan is undetermined at this time and depends on patient's progress. She is expected to meet with Palliative Care today to discuss her goals of care. If she is discharged home, her son Vincent will transport her home via private vehicle. will continue to support Aileen and any discharge planning needs. PFSH All Active Problems (Updated 01/01/23 @ 14:32 by Che Emery NP) Palliative care encounter (Acute) Metastatic non-small cell lung cancer (Acute) Hyponatremia (Acute) Discharge planning issues (Acute) DVT prophylaxis (Acute) Esophageal ulcer (Acute) Gastritis (Acute) Anemia associated with acute blood loss (Acute) Acute GI bleeding (Acute) Hypotension (Acute) Abdominal wall mass of periumbilical region (Acute) Malignant neoplasm of unspecified part of unspecified bronchus or lung (Acute) Thrombocytosis, unspecified (Acute) Transient cerebral ischemic attack, unspecified (Chronic) Insomnia, unspecified (Acute) Medical History (Updated 01/01/23 @ 14:32 by Che Emery NP) Alcohol abuse Carbuncle COVID-19 (~07/2022) asymptomatic History of stroke 07/2022 Surgical History (Updated 01/02/23 @ 08:50 by Billie Jordan) History of bronchoscopy History of carpal tunnel repair History of esophagogastroduodenoscopy (EGD) (~12/2022) Hx of appendectomy Hx of hemorrhoidectomy Social History Smoking/Tobacco Use Status: Former Tobacco Use Quit Date: 08/15/22 Smoking risk assessment performed?: Yes Alcohol Intake: former Details: weekly Do you feel safe at home: Yes Do you feel safe in your relationship?: Yes
[2023-01-01] MEDS: Lactated Ringers 1,000 ML 75 ML IV ×2 (14:27→23:46)
[2023-01-01] MEDS: diphenhydrAMINE 25 MG CAP PO (15:32)
[2023-01-01] MEDS: Acetaminophen 325 MG TAB 650 MG PO (15:33)
[2023-01-01] MEDS: IRON SUCROSE COMPLEX 200 MG in Normal Saline 100 ML 400 MG IVPB (17:43)
[2023-01-01] MEDS: Atorvastatin 40 MG TAB PO (21:17)
[2023-01-01] MEDS: guaiFENesin 600 MG TABCR PO (21:17)
[2023-01-01] MEDS: Zolpidem 5 MG TAB 10 MG PO (23:40)
[2023-01-02] VITALS (168 sets, daily range): BP systolic 87–125; BP diastolic 59–76; PULSE 89–112; RESP 13–30; TEMP 37.6–38.2; O2SAT 90–99
--- NOTE | 2023-01-02 | DI.CT_ITS ---
Exam(s) CT ABDOMEN PELVIS W EXAM: CT ABDOMEN PELVIS W CLINICAL HISTORY: anemia, no clear source of bleeding, distended abd TECHNIQUE: Imaging Protocol: Axial computed tomography images with coronal and sagittal reformatted images were created and reviewed CONTRAST MATERIAL: Intravenous: Omnipaque 350 Contrast volume:66 mL Oral: No COMPARISON: CT CT CHEST PE ABD PELVIS W from 12/31/2022 FINDINGS: ABDOMEN: Lung Bases: There is now moderate size left pleural effusion and subjacent infiltrate. There is a sm all right pleural effusion with subjacent infiltrate. Liver: Normal density. There is periportal edema. There is stable hypodensities in the liver. Portal, Superior Mesenteric, and Splenic Veins: Unremarkable. No portal venous gas is identified. Gallbladder and Biliary Tract: There is intra and extrahepatic biliary ductal dilatation. The extrah epatic bile duct measures 9 mm in diameter. No evidence of a pancreatic head mass. Pancreas: Normal density, no abnormal calcifications or inflammatory process. Spleen: Normal. Adrenals: There are stable bilateral adrenal masses. Kidneys: Normal size, contour and axis. No radiodense stones or obstructive uropathy. No masses seen. Abdominal Aorta: Abdominal portion non-dilated. Atherosclerosis. Bowel: There is again seen wall thickening at the level of the anus. There is formed stool seen pred ominantly in the distal colon. Fluid is seen in the small bowel and the proximal colon. There are d iverticula seen in the colon. There is some collapsed small bowel. There are some bowel loops with air-fluid levels. Peritoneal Cavity: Abdominal and pelvic ascites is present. No free air. Lymph Nodes: There are enlarged lymph nodes seen in the retroperitoneum. Bones: There is a left hip prosthesis which causes artifact. There is L4 spondylolysis with grade 1 spondylolisthesis of L4 on L5. No aggressive osseous lesion is seen. Soft Tissues: There is anasarca. PELVIS: Bladder: The urinary bladder is incompletely imaged due to artifact from the patient's hip prosthesis . There is a Rogers catheter in place. Reproductive Organs: Unremarkable as visualized. Lymph Nodes: Within normal limits. Bones: Within normal limits for the patient's age. IMPRESSION: 1. Examination limited by artifact and lack of oral contrast. 2. Findings suggesting thickening of the rectum and anus. Mass cannot be excluded. Please correlate with physical exam. This area is compromised secondary to artifact from the patient's left hip repl acement. 3. Abdominal and pelvic ascites. 4. Anasarca. 5. Interval increase in size of the left pleural effusion which is now moderate. There is a new smal l right pleural effusion. Subjacent infiltrates are seen which may represent atelectasis or pneumoni a. 6. Fluid-filled loops of small and large bowel which can be seen with enterocolitis/diarrheal illness . 7. Persistent intra and extrahepatic biliary ductal dilatation. 8. Stable hepatic lesions and adrenal masses. Metastatic disease cannot be excluded. RADIATION DOSE DELIVERED: 542.26mGy.cm Total DLP DATA REPOSITORY: All CT scans at this facility are submitted to the National Radiology Data Registry (NRDR) Dose Index Registry (DIR) with the [employer] (ACR). RADIATION OPTIMIZATION: All CT scans at this facility use at least one of these dose optimization te chniques: automated exposure control; mA and/or kV adjustment per patient size (includes targeted exa ms where dose is matched to clinical indication); or iterative reconstruction.
[2023-01-02 01:31] LABS: HCT 35.1 % (36.0-46.0)
[2023-01-02] MEDS: Sucralfate 1 GM TAB PO ×3 (03:50→17:18)
[2023-01-02] MEDS: oxyCODONE 5 MG TAB PO ×3 (03:50→16:51)
--- NOTE | 2023-01-02 05:52 | NUR.NOTE ---
0400-incontinent of loose stool. area cleaned and barrer cream applied. oxycodone given per request for pain pill.
[2023-01-02 07:35] LABS: Abs Immature Grans 0.04 10^3/uL (0.0-0.06); Absolute Lymphocyte Count 1.26 10^3/uL (1.2-3.4); HCT 38.6 % (36.0-46.0); HGB 13.3 g/dL (11.2-15.7); MCH 30.3 pg (27.0-33.0); MCHC 34.5 % (32.0-36.0); MCV 88 fL (80-95); MPV 10.1 fL (8.0-11.0); Platelet Count 505 10^3/uL (130-400); RBC 4.39 10^6/uL (3.93-5.22); RDW 14.1 % (11.7-14.6); RDW-SD 44.7 fL; WBC 4.67 10^3/uL (4.4-10.8)
[2023-01-02 08:09] LABS: Anion Gap 8.3 mmol/L (3-11); BUN 9 mg/dL (7-18); CO2 25.7 mmol/L (21.0-32.0); CREATININE 0.6 mg/dL (0.55-1.02); Calcium 7.5 mg/dL (8.5-10.1); Chloride 94 mmol/L (98-107); Estimated GFR 100.17 (mL/min/1.73m2); Glucose 74 mg/dL (74-106); Magnesium 1.6 mg/dL (1.8-2.4); Potassium 3.3 mmol/L (3.5-5.1); Sodium 128 mmol/L (136-145)
--- NOTE | 2023-01-02 08:17 | CMPROGNOTE_ITS ---
Date of service: 01/02/23 Time of Service: 08:18 Care Management Progress Note Progress Note Text Progress Note Text: S/O:Aileen was lying in bed when CM met with her. She appeared very weak and fatigued and admitted that she was very tired. She was disinclined to converse, stating that she just wanted to sleep. CM supported her decision and informed her that the conversation could wait until tomorrow when hopefully she is feeling better.CM did speak to Aileen's son Vincent about discharge planning. There was some discussion earlier today about Aileen being on a waiting list at [facility] in [place]. Vincent stated that his grandmother is there but that he and Aileen have not discussed the possibility of her going there. He also stated that until yesterday, Aileen was quite independent, performing her own ADLs and caring for herself. He has not yet considered or addressed alternate living arrangements for Aileen when she is discharged from the hospital. He shared that it is not a subject they have discussed. Vincent did inform CM that Aileen has not eaten solid food since she had a stroke in July and that, plus the tumors, are what is responsible for her weight loss. Clinically Aileen is better. Her Hgb is up to 12.2 after 4 units of blood yesterday but her blood pressures remain low with systolic BP in 80s and 90s. A: Aileen is a 62 year old woman admitted on 12/31/22 with a GI Bleed P:Anticipate Aileen will discharge home with new home health services. It is possible that she will transition to hospice at some point in the near future. She may consider SNF for hospice care, but that conversation has not taken place . CM will follow and support Aileen and her discharge planning needs.
[2023-01-02 08:18] LABS: Absolute Neutrophil Count 1.96 10^3/uL (1.2-6.7); Bands % 3
[2023-01-02 08:19] LABS: Diff Comment Manual Differential; Metamyelocytes % 1; RBC Morphology Normal
[2023-01-02] MEDS: Normal Saline Flush 10 ML SYR IVP ×2 (09:04→20:40)
[2023-01-02] MEDS: Pantoprazole 40 MG VIAL IVP ×2 (09:05→20:40)
[2023-01-02] MEDS: guaiFENesin 600 MG TABCR PO ×2 (09:05→20:39)
[2023-01-02] MEDS: Metoclopramide 10 MG TAB PO ×4 (09:06→20:41)
--- NOTE | 2023-01-02 10:08 | PT.INNT ---
Date of service: 01/02/23 Time of Service: 10:08 PT Notes Visit Reasons: GI Bleed, Hypokalemia, Hypomagnesemia Nurse Ana has been with patient and needed to reposition patient several times in bed for a procedure before PT came in. Patient expresses fatigue and is agreeable to be seen later when BP fluctuations decreases.
[2023-01-02] MEDS: Acetaminophen 325 MG TAB 650 MG PO ×2 (10:41→20:41)
--- NOTE | 2023-01-02 10:46 | NUR.NOTE ---
Nurse introduced herself to the patient, and medication administration completed. The patient is resting comfortably in bed. SHRADDHA RN
--- NOTE | 2023-01-02 11:07 | NUR.NOTE ---
request for care management to discuss care plan at the time of discharge. The patient lives alone and will need nursing facility placement at time of discharge. SHRADDHA, RN
--- NOTE | 2023-01-02 11:08 | NUR.NOTE ---
The patient has a port and nurse is unable to get blood return. The port is infusing, just not able to get blood return. Requested trouble shooting assistance from the infusion center. SHRADDHA, RN
--- NOTE | 2023-01-02 11:12 | W.PM.PROGNOT ---
Date of Service Date of service: 01/02/23 Time of Service: 07:30 Assessment and Plan Assessment and plan (1) Acute GI bleeding: Status: Acute Assessment and plan: continue PPI and carafate I saw and examined Aileen, and I agree with this note started by Mary. Patient is doing okay after EGD. Hemoglobin is improved. Continue medical management of esophagitis for now. (2) Esophageal ulcer: Status: Acute (3) Gastritis: Status: Acute Subjective Subjective Interval history since last seen: Patient reports she is feeling well this morning. She denies any abdominal pain, nausea, vomiting, heart burn or indigestion. Exam Const General: cooperative, healthy appearing and comfortable Orientation: alert and oriented x3 Resp Effort & Inspection: normal respiratory effort, no audible wheezes and no cough GI Inspection: normal to inspection Palpation: soft, no guarding and nontender Auscultation: normal bowel sounds Objective Last Vital Signs Temp 37.8 C H 01/02/23 04:11 Pulse 105 H 01/02/23 10:06 Resp 15 01/02/23 10:55 BP 106/76 01/02/23 10:06 Pulse Ox 97 01/02/23 10:55 Laboratory Results - last 24 hr 12/31/22 01/01/23 01/01/23 13:40 13:45 14:17 WBC RBC Hgb 7.6 L Hct 22.4 L MCV MCH MCHC RDW Plt Count MPV Immature Gran % Neutrophils % Band Neutrophils % Lymphocytes % Monocytes % Eosinophils % Basophils % Metamyelocytes % Nucleated RBC % Absolute Neutrophils Absolute Lymphocytes Absolute Monocytes Absolute Eosinophils Absolute Basophils RBC Morphology VBG Lactate 0.7 Sodium Potassium Chloride Carbon Dioxide Anion Gap BUN Creatinine Est GFR (CKD-EPI 2020) Glucose Calcium Magnesium Patient ABO/Rh A Positive Antibody Screen NEGATIVE Crossmatch See Detail 01/02/23 01/02/23 01/02/23 01:24 06:03 06:03 WBC 4.67 RBC 4.39 Hgb 12.0 D 13.3 Hct 35.1 L 38.6 MCV 88 MCH 30.3 MCHC 34.5 RDW 14.1 Plt Count 505 H MPV 10.1 Immature Gran % See Differential Neutrophils % 39.0 Band Neutrophils % 3 Lymphocytes % 27.0 Monocytes % 30.0 Eosinophils % 0.0 Basophils % 0.0 Metamyelocytes % 1 Nucleated RBC % 0.0 Absolute Neutrophils 1.96 Absolute Lymphocytes 1.26 Absolute Monocytes 1.40 H Absolute Eosinophils 0.00 Absolute Basophils 0.00 RBC Morphology Normal VBG Lactate Sodium 128 L Potassium 3.3 L D Chloride 94 L Carbon Dioxide 25.7 Anion Gap 8.3 BUN 9 Creatinine 0.6 Est GFR (CKD-EPI 2020) 100.17 Glucose 74 Calcium 7.5 L Magnesium 1.6 L Patient ABO/Rh Antibody Screen Crossmatch Time Spent with Patient Time Spent with Patient: <25 minutes Time was spent: preparing to see the patient(eg.review tests) and counseling the patient
[2023-01-02] MEDS: levoFLOXacin 750 MG/150 ML BAG 100 MG IVPB (12:17)
[2023-01-02] MEDS: MAGNESIUM SULFATE 2 GM/50 ML BAG IVPB (12:21)
[2023-01-02] MEDS: POTASSIUM CHLORIDE 20 MEQ/100 ML BAG 50 MEQ IVPB ×2 (12:21→14:36)
--- NOTE | 2023-01-02 12:40 | NUR.NOTE ---
called the ER for report, they will have the nursing staff call us back when they are available. SHRADDHA, RN
--- NOTE | 2023-01-02 13:15 | PT.INNT ---
PT Notes Visit Reasons: GI Bleed, Hypokalemia, Hypomagnesemia Attempted another visit but patient is insistent about resting, she remains tired and unable to tolerate anything, prefers to sleep. Nurse Ana mitchell. Will try see patient again tomorrow and determine appropriateness of services.
[2023-01-02 13:58] LABS: HCT 35.3 % (36.0-46.0); HGB 12.2 g/dL (11.2-15.7)
--- NOTE | 2023-01-02 15:19 | PGE_ITS ---
Date of Service Date of service: 01/02/23 Time of Service: 15:19 Assessment and Plan Assessment and plan (1) Acute GI bleeding: Status: Acute Assessment and plan: No active bleeding on EGD 01/01/23, but does have evidence of gastritis and an esophageal ulcer. She has been heme + x1; otherwise, heme negative. Continue PPI/carafate. Given the change in the abdominal exam, will repeat CT abdomen to ensure there is no intraabdominal bleeding. (2) Anemia associated with acute blood loss: Status: Acute Assessment and plan: s/p transfusion of 4 units of pRBCs. H/H on recheck today is lower than this am, however, probably was overestimated this am. Will recheck again at 6 pm. (3) Gastritis: Status: Acute Assessment and plan: As above (4) Esophageal ulcer: Status: Acute Assessment and plan: As above (5) Hyponatremia: Status: Acute Assessment and plan: I suspect this is due to chemotherapy, decreased PO intake. This is worse today. Monitor as we are reinitiating IVF. (6) Malignant neoplasm of unspecified part of unspecified bronchus or lung: Status: Acute Assessment and plan: on palliative chemotherapy. 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 Palliative care consulted, and the patient is DNR/DNI. (7) DVT prophylaxis: Status: Acute Assessment and plan: SCDs Hold chemical DVT ppx in setting of acute bleeding (8) Discharge planning issues: Status: Acute Assessment and plan: DNR/DNI C/s PT and palliative care. Patient was actually kept in the ICU yesterday and should remain in the ICU at this time. Total Critical Care Time 35 minutes. Subjective Subjective Interval history since last seen: Ms Aj states she is not dizzy, denies CP, SOB, n/v, abdominal pain. She does have pain prior to passing BMs which gets better after passing them. She has been having diarrhea. BPs have drifted down to 87/59 after discontinuation of IVF; now up to 98/64. Nursing notes that her abdomen is firmer today. Exam Narrative Exam Narrative: General: Pleasant middle-aged female, cachectic, A&Ox3, comfortable in bed HEENT: EOMI, MMM Heart: RRR, no m/r/g Lungs: CTAB Abdomen: Firm and distended, but nontender; this is a change from the exam yesterday. Extremities: no edema BLEs Objective Last Vital Signs Temp 37.9 C H 01/02/23 13:25 Pulse 96 H 01/02/23 14:51 Resp 27 H 01/02/23 15:00 BP 98/64 L 01/02/23 14:51 Pulse Ox 97 01/02/23 15:00 Laboratory Results - last 24 hr 12/31/22 01/02/23 01/02/23 13:40 01:24 06:03 WBC RBC Hgb 12.0 D Hct 35.1 L MCV MCH MCHC RDW Plt Count MPV Immature Gran % Neutrophils % Band Neutrophils % Lymphocytes % Monocytes % Eosinophils % Basophils % Metamyelocytes % Nucleated RBC % Absolute Neutrophils Absolute Lymphocytes Absolute Monocytes Absolute Eosinophils Absolute Basophils RBC Morphology Sodium 128 L Potassium 3.3 L D Chloride 94 L Carbon Dioxide 25.7 Anion Gap 8.3 BUN 9 Creatinine 0.6 Est GFR (CKD-EPI 2020) 100.17 Glucose 74 Calcium 7.5 L Magnesium 1.6 L Patient ABO/Rh A Positive Antibody Screen NEGATIVE Crossmatch See Detail 01/02/23 01/02/23 06:03 13:55 WBC 4.67 RBC 4.39 Hgb 13.3 12.2 Hct 38.6 35.3 L MCV 88 MCH 30.3 MCHC 34.5 RDW 14.1 Plt Count 505 H MPV 10.1 Immature Gran % See Differential Neutrophils % 39.0 Band Neutrophils % 3 Lymphocytes % 27.0 Monocytes % 30.0 Eosinophils % 0.0 Basophils % 0.0 Metamyelocytes % 1 Nucleated RBC % 0.0 Absolute Neutrophils 1.96 Absolute Lymphocytes 1.26 Absolute Monocytes 1.40 H Absolute Eosinophils 0.00 Absolute Basophils 0.00 RBC Morphology Normal Sodium Potassium Chloride Carbon Dioxide Anion Gap BUN Creatinine Est GFR (CKD-EPI 2020) Glucose Calcium Magnesium Patient ABO/Rh Antibody Screen Crossmatch Multi-Disciplinary Checklist Lines/Tubes CENTRAL LINE: yes, Note: infusaport ARTERIAL LINE: no WALDROP: yes, [place] Day#: 3 ENDOTRACHEAL TUBE: no ICU Maintenance GLUCOSE 140-180mg/dL: no, Reason/Intervention: Patient is not a diabetic NUTRITION AT GOAL: no, Reason/Intervention: GI bleeding; diet is being advanced slowly PRESSURE ULCER: no RESTRAINTS: no ANTIBIOTICS(if yes, consider Stewardship): Yes Social Issues FAMILY UPDATED: yes PT/OT: yes GOALS/DISPOSITION/PRESCHOOL SUBSTITUTE TEACHER: yes CODE STATUS: DNR/DNI Prophylaxis DVT PROPHYLAXIS: yes GI PROPHYLAXIS: yes, Indication: Anemia of presumed GI losses Time Spent with Patient Time Spent with Patient: 35-49 minutes Time was spent: preparing to see the patient(eg.review tests), obtaining and/or reviewing separately otained hiistory, ordering medications,tests, procedures, referring, communicating with other health career services officer, indepentently interpreting results, counseling the patient and care coordination
[2023-01-02] MEDS: Lactated Ringers 500 ML IV (15:26)
[2023-01-02] MEDS: Omnipaque 350 MG/ML 100 ML BTL IJ (15:40)
[2023-01-02] MEDS: Normal Saline - Diluent 50 ML VIAL IJ (15:42)
--- NOTE | 2023-01-02 15:46 | PHA.REVIEW2 ---
Pharmacy Admission Review Admission Clinical Review Admission Pharmacy Review: (Updated 01/01/23 @ 14:32 by Che Emery NP) Palliative care encounter (Acute) Metastatic non-small cell lung cancer (Acute) Hyponatremia (Acute) Discharge planning issues (Acute) DVT prophylaxis (Acute) Esophageal ulcer (Acute) Gastritis (Acute) Anemia associated with acute blood loss (Acute) Acute GI bleeding (Acute) Hypotension (Acute) Abdominal wall mass of periumbilical region (Acute) Malignant neoplasm of unspecified part of unspecified bronchus or lung (Acute) Thrombocytosis, unspecified (Acute) Insomnia, unspecified (Acute) No Known Allergies Allergy (Verified 12/31/22 13:09) Resuscitation Status DNR/DNI Height 5 ft 3 in Weight 46.1 kg Comments Comments/Follow Ups: Fever, BP soft, Palliative care patient, Anemia watching closely s/p transfusions, Iron Sucrose 200mg x1 on 01/01/23, on Protonix/Carafate Pharmacy Admission Review Renal Dosing Renal Dosing: CrCl~41ml/min BUN 9 mg/dL (7-18) 01/02/23 06:03 Creatinine 0.6 mg/dL (0.55-1.02) 01/02/23 06:03 Medications needing adjustments: Intervened (Levaquin for CrCl<50ml/min....will consult with MD to change to Q48h) Anticoagulation Anticoagulation: Hgb 12.2 g/dL (11.2-15.7) 01/02/23 13:55 Hct 35.3 % (36.0-46.0) L 01/02/23 13:55 Plt Count 505 10^3/uL (130-400) H 01/02/23 06:03 INR 1.0 (0.9-1.1) 12/31/22 13:40 Creatinine 0.6 mg/dL (0.55-1.02) 01/02/23 06:03 DVT Prophylaxis: N/A (here for GI bleed, although not active, heme + x1, did have blood transfusions) Opiate Usage Evaluate Pain Scale/Pains Meds: Reviewed (Oxy IR...unsure of pain scale at this time, large amounts of stool x 3 days) Scheduled Bowel Reg ordered if on Opiates?: No (prn Docusate) Relevant Labs Relevant Labs: Sodium 128 mmol/L (136-145) L 01/02/23 06:03 Potassium 3.3 mmol/L (3.5-5.1) L D 01/02/23 06:03 Chloride 94 mmol/L (98-107) L 01/02/23 06:03 Magnesium 1.6 mg/dL (1.8-2.4) L 01/02/23 06:03 Getting intermittent IV bolus' for fluids, Mag and Potassium bolus' daily for correction Cardiac Review Cardiac Review: Troponin I < 50 ng/L (<or=60) 12/31/22 20:45 IV to PO Switch IV Medications: Reviewed (IV Levaquin) Pharmacy Antibiotic Review Pharmacy Antibiotic Activity: C/S review (Blood cultures no growth x24h) Comments Comments/Follow Ups: Fever, BP soft, Palliative care patient, Anemia watching closely s/p transfusions, Iron Sucrose 200mg x1 on 01/01/23, on Protonix/Carafate Antibiotic Activity Pharmacy Antibiotic Review Pharmacy Antibiotic Activity: Renal function adjustment (Levaquin changed to q48h) Antibiotic Information Antibiotic Review Info: Levaquin IV empiric while blood cultures pending, Febrile, low BP's
--- NOTE | 2023-01-02 15:55 | CHAPLAIN ---
Aileen was resting in bed when I visited. I introduced myself and explained my role and offered. She is from [place] and recently started palliative chemo treatments. Aileen is followed by [facility] and Che Emery NP, from Palliative and visited Aileen here. Aileen lives alone, but is support by her son and daughter in law. I will continue to visit.
[2023-01-02] MEDS: Lactated Ringers 1,000 ML 75 ML IV (18:10)
[2023-01-02 18:22] LABS: HGB 12.2 g/dL (11.2-15.7)
[2023-01-02] MEDS: Zolpidem 5 MG TAB 10 MG PO (20:39)
[2023-01-02] MEDS: Atorvastatin 40 MG TAB PO (20:41)
[2023-01-03] VITALS (33 sets, daily range): BP systolic 89–124; BP diastolic 57–84; PULSE 86–126; RESP 13–28; TEMP 36.6–37.8; O2SAT 92–97
[2023-01-03] MEDS: Sucralfate 1 GM TAB PO ×5 (00:18→21:06)
[2023-01-03] MEDS: oxyCODONE 5 MG TAB PO ×5 (00:18→21:07)
[2023-01-03 06:08] LABS: HCT 35.2 % (36.0-46.0); HGB 12.3 g/dL (11.2-15.7); MCH 30.3 pg (27.0-33.0); MCHC 34.9 % (32.0-36.0); MCV 87 fL (80-95); MPV 9.3 fL (8.0-11.0); Platelet Count 387 10^3/uL (130-400); RBC 4.06 10^6/uL (3.93-5.22); RDW 13.8 % (11.7-14.6); RDW-SD 43.8 fL
[2023-01-03 06:36] LABS: Absolute Basophil Count 0.04 10^3/uL (0.0-0.2); Absolute Eosinophil Count 0.04 10^3/uL (0.0-0.7); Absolute Lymphocyte Count 1.38 10^3/uL (1.2-3.4); Absolute Monocyte Count 1.12 10^3/uL (0.1-0.8); Absolute Neutrophil Count 1.72 10^3/uL (1.2-6.7); Atypical Lymphocytes % 1; Bands % 3
[2023-01-03 06:37] LABS: Diff Comment Manual Differential; RBC Morphology Normal
[2023-01-03 07:37] LABS: Anion Gap 7.4 mmol/L (3-11); BUN 4 mg/dL (7-18); CO2 25.6 mmol/L (21.0-32.0); CREATININE 0.5 mg/dL (0.55-1.02); Calcium 7.1 mg/dL (8.5-10.1); Chloride 96 mmol/L (98-107); Estimated GFR 104.67 (mL/min/1.73m2); Glucose 80 mg/dL (74-106); Magnesium 1.8 mg/dL (1.8-2.4); Sodium 129 mmol/L (136-145)
[2023-01-03 07:38] LABS: Potassium 2.6 mmol/L (3.5-5.1)
--- NOTE | 2023-01-03 08:46 | PDOC.CMPRO ---
Date of service: 01/03/23 Time of Service: 19:06 Care Management Progress Note Progress Note Text Progress Note Text: S/O:Aileen was lying in bed when CM met with her. She had been dozing but woke up easily when her name was called. CM asked Aileen if she had any thoughts about where she would go when medically ready for discharge.Aileen stated that she expected that she would discharge home. She shared that her [id number] helps her out when needed. Aileen was informed that CM had a conversation with her son yesterday and that he indicated that she had been quite independent before admission. She confirmed that. The subject of rehab for a short time was raised by CM and Aileen neither accepted or rejected the concept. Aileen's H&H has stabilized, however she had a fever of 38.[address] report from yesterday Aileen has anasarca with abdominal and pelvic ascites as well as bilateral pleural effusions. Her SBPs have been in the 90s to low teens and she remains tachycardic. Aileen remains ICU level of care. A: Aileen is a 62 year old woman admitted on 12/31/22 with a GI Bleed P:Anticipate Aileen will discharge home with new home health services. It is possible that she will transition to hospice at some point in the near future. She may consider SNF for hospice care, but that conversation has not taken place. CM will follow and support Aileen and her discharge planning needs.
[2023-01-03] MEDS: Potassium Chloride 20 MEQ TABCR PO ×2 (09:11→20:01)
[2023-01-03] MEDS: Pantoprazole 40 MG VIAL IVP ×2 (09:11→20:00)
[2023-01-03] MEDS: Normal Saline Flush 10 ML SYR IVP (09:11)
[2023-01-03] MEDS: Metoclopramide 10 MG TAB PO ×4 (09:12→21:06)
[2023-01-03] MEDS: Midodrine 2.5 MG TAB 5 MG PO ×3 (09:12→20:02)
[2023-01-03] MEDS: guaiFENesin 600 MG TABCR PO ×2 (09:12→20:01)
[2023-01-03] MEDS: Senna TAB 1 TAB PO (09:13)
[2023-01-03] MEDS: POTASSIUM CHLORIDE 10 MEQ/100 ML BAG 100 MEQ IVPB ×3 (09:26→13:06)
[2023-01-03] MEDS: Polyethylene Glycol 3350 17 GM PACKET PO (09:26)
[2023-01-03] MEDS: Albuterol 2.5 MG/3 ML INH SOLN VIAL UPD (09:48)
--- NOTE | 2023-01-03 13:20 | IN_ITS ---
Date of service: 01/03/23 Time of Service: 08:55 PT Notes Visit Reasons: GI Bleed, Hypokalemia, Hypomagnesemia Physical Therapy Inpatient Initial Evaluation Date: 01/03/2023 Referring Doctor: Madai Rahman MD PT Orders: PT CONSULT: Limited ability Precautions: Fall. Standard. Activity as tolerated. Patient Profile/Admitting Diagnosis: Aileen is a 62-year-old female admitted to the ED on 12/31/2022 due to low hemoglobin level and hypotension while on chemotherapy at [facility]. Patient is admitted for management of acute GI bleed, metastatic non-small cell lung cancer, hypotension, anemia associated with acute blood loss, CVA in July, hip pain, esophageal ulcer, gastritis, and hypotension. PMHX: All Active Problems? Acute GI bleeding (Acute) Hypotension (Acute) Abdominal wall mass of periumbilical region (Acute) Malignant neoplasm of unspecified part of unspecified bronchus or lung (Acute) Thrombocytosis, unspecified (Acute) Transient cerebral ischemic attack, unspecified (Chronic) Insomnia, unspecified (Acute) Medical History? Alcohol abuse Carbuncle COVID-19 (~07/2022) asymptomatic History of stroke 07/2022 Surgical History? History of bronchoscopy History of carpal tunnel repair Hx of appendectomy Hx of hemorrhoidectomy Social History/Home Situation: Has had slow deterioration in terms of strength and mobility related to ongoing neoplastic pathology and chemotherapy. Able to walk for short distances at home for up to 10 feet using front-wheeled walker. Has a ramp to enter home. Son and son's family have been good support. Equipment Owned/DME: FWW Subjective: Feels tired but is willing to try sit on bedside chair so her bed sheet could be changed. States that back in July, she broke a bone just sitting in her car. Unsure of whether she would want to go to a SNF. prefers to go home with needed support whenever safe to do so. Reported being shaky when BP was taken in standing to reassess for orthostatic hypotension. Did report being shaky and lightheaded in standing. Objective: General Observation: Supine in bed. Telemetry monitoring in place. Rogers catheter in place. Mental Status: Alert and oriented as to person, place, time, and purpose. Able to pay attention, focus, and respond appropriately. Pain: Minimal generalized pain Vital Signs: Negative for orthostatic hypotension when assessed with Nurse Glenis cheng ROM: Right Upper Extremity: Shoulder Flexion WFL. Shoulder abduction WFL. Elbow flexion WFL. Wrist flexion WFL. Functional opening and closing of hand WFL. Left Upper Extremity: Shoulder Flexion WFL. Shoulder abduction WFL. Elbow flexion WFL. Wrist flexion WFL. Functional opening and closing of hand WFL. Right Lower Extremity: Hip flexion WFL. Hip abduction WFL. Knee flexion WFL. Ankle dorsiflexion WFL. Ankle plantarflexion WFL. Left Lower Extremity: Hip flexion WFL. Hip abduction WFL. Knee flexion WFL. Ankle dorsiflexion WFL. Ankle plantarflexion WFL. Strength: Right Upper Extremity: Shoulder flexors 3+/5. Shoulder abductors 3+/5. Elbow flexors 4-/5. Elbow extensors 4-/5. Railway Station Manager strong. Left Upper Extremity: Shoulder flexors 4-/5. Shoulder abductors 4-/5. Elbow flexors 4/5. Elbow extensors -/5. Railway Station Manager strong. Right Lower Extremity: Hip flexors 3+/5. Hip abductors 3+/5. Knee flexors 4-/5. Knee extensors 4-/5. Ankle dorsiflexors 4-/5. Ankle plantarflexors 4-/5. Left Lower Extremity: Hip flexors 4-/5. Hip abductors 4-/5. Knee flexors 4-/5. Knee extensors 4-/5. Ankle dorsiflexors 4-/5. Ankle plantarflexors 4-/5. Bed Mobility/Transfers: Supine to sit minimal assist Sit to supine minimal assist Sit to stand minimal assist with FWW Stand to sit minimal assist with FWW Bed to reclining chair minimal assist with FWW Gait: Instructed patient with level surface ambulation of 5 small steps requiring minimal assist. Saritha decreased. Step height decreased. Step length decreased. SOB after transfer. Balance: Static Sitting: Normal Dynamic Sitting: Normal Static Standing: Fair Dynamic Standing: Fair Special Tests: Mobility Limitations Standardized Measure [employer] AM-PAC 6 clicks Basic Mobility Inpatient Short Form: Raw Score: 12 CMS Score: 69% deficit Informed Consent/Education: Patient was instructed in purpose of PT consult and plan of care. Agreeable to proceed with established PT POC to achieve personal goals. Assessment: Patient presents with clinical signs and symptoms consistent with current/admitting diagnoses that have resulted to mobility limitations, gait instability, generalized weakness, and overall ADL decline as demonstrated by the following impairment level findings: 1. Decreased strength to B UE/LE major muscle groups 2. Impaired sitting/standing balance 3. Impaired activity tolerance 5. Shortness of breath 6. Fatigue Impairments are contributing to the following functional limitations: 1. Decline in bed mobility skills 2. Decline in transfer skills 3. Difficulty with ambulation without assistive device and physical assistance 4. Increased completion time for mobility ADL performance 5. Increased risk for falls 6. Difficulty with managing steps alone safely Patient is assessed as a 67481 moderate complexity based on the following: History: 62-year-old female with past medical history as indicated above Examination: Demonstrable impairment in strength, balance, and mobility level with underlying impairments and functional limitations as exhibited above as well as deficit score of 69% utilizing the [facility] Mobility Inpatient Short Form Presentation: Evolving Decision Makin moderate complexity Goals: Goals X1 week 1. Supine-Sit independent 2. Sit-Supine independent 3. Sit-Stand independent 4. Stand-Sit independent with FWW 5. Bed-Chair independent with FWW 6. Chair-Bed independent with FWW 7. Independent gait on level surface with use of FWW for at least 30 feet without report of pain nor dyspnea 8. Good static and dynamic standing balance/tolerance Plan of Care/Treatment Plan: 1-2x/day, 7 days/week x 1 week. Plan of care has been reviewed with the UTILITY TRACTOR OPERATOR providing the service under Physical Therapy direction. Initiate Physical Therapy intervention for pain management as needed, strengthening, bed mobility, transfers, gait, stairs, balance training, and use of assistive device. DISCHARGE RECOMMENDATIONS: [] Home with no services [] [] Home with services [specify] [] Home with outpatient PT [] [] SNF for continued rehabilitation [] [] [facility] [] [] SNF versus LTC based on ability to participate and progress [] [X] SNF vs PT based on progress towards goals TREATMENT CODE/TIME: 70489 x 20 minutes, 97903 x 17 minutes beginning at 8:55 AM. Thank you for the opportunity to participate in the care of this patient. Marianela Lafleur PT, DPT, CLT [facility] [place], [place]
--- NOTE | 2023-01-03 14:06 | PT.INTREAT ---
Date of service: 01/03/23 Time of Service: 13:51 PT Notes Visit Reasons: GI Bleed, Hypokalemia, Hypomagnesemia Inpatient Physical Therapy Treatment Note [facility] Date: 01/03/23 PRECAUTIONS: Fall, standard, activity as tolerated SUBJECTIVE: Patient sitting up in recliner, IV access right UE, Rogers in place, telemetry, BP cuff and SAO2 monitor in place. Patient reports feeling dizzy, shaky, and extremely fatigued. Not agreeable to therapy, however is willing to transfer to bed and discuss exercises. OBJECTIVE: PAIN: none reported BED MOBILITY/TRANSFERS Rolling L/R: independent Supine-sit: min A Sit-supine: Min A (requires assistance getting RLE elevated into bed. Sit-stand: CGA Stand-sit: Standby Bed-Chair: CGA Chair-bed: CGA GAIT Assistive Device: FWW Weight bearing: Full Assist: CGA, assist with IV pole and telemetry lead management Distance: 4 feet Deviation: Patient appears to be lacking some knee/hip extension, walks with forward posture. VITALS: Closely monitored via telemetry THEREX: Discussed exercises that patient can do in bed or in recliner when awake to maintain strength including ankle pumps, quad / glute / hamstring sets, heel slides. ASSESSMENT: Patient tolerates therapy well, states that she expects to be able to do more tomorrow. SANA Galvin confirms that patient is better today than yesterday, is likely to feel more capable tomorrow. PLAN: Continue global strengthening per plan of care until patient is medically ready for discharge. TREATMENT CODE/TIME: 86805 Ther Act for transfer training and patient education 13 minutes beginning at 13:51
[2023-01-03] MEDS: Normal Saline 1,000 ML 100 ML IV (17:40)
[2023-01-03] MEDS: Normal Saline 250 ML IV (17:41)
--- NOTE | 2023-01-03 19:32 | W.PM.PROGNOT ---
Date of Service Date of service: 01/03/23 Time of Service: 19:32 Assessment and Plan Assessment and plan (1) Acute GI bleeding: Status: Acute Assessment and plan: No active bleeding on EGD 01/01/23, but does have evidence of gastritis and an esophageal ulcer. She has been heme + x1; otherwise, heme negative. Continue PPI/carafate. CT abd/pelvis obtained yesterday d/t increased abd distension/firmness showed suggestion of rectum and anus wall thickening, increase in left pleural effusion, fluid-filled loops of small and large bowel. Hgb has stabilized. (2) Anemia associated with acute blood loss: Status: Acute Assessment and plan: s/p transfusion of 4 units of pRBCs. H/H 12.3 and stabilizing. Will recheck in AM. (3) Gastritis: Status: Acute Assessment and plan: As above (4) Esophageal ulcer: Status: Acute Assessment and plan: As above (5) Hyponatremia: Status: Acute Assessment and plan: I suspect this is due to chemotherapy, decreased PO intake. Na 128 yesterday, now 129. Giving IV NS d/t marginal BP readings which should help increase Na level. Monitor. (6) Malignant neoplasm of unspecified part of unspecified bronchus or lung: Status: Acute Assessment and plan: on palliative chemotherapy. 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 Palliative care consulted, and the patient is DNR/DNI. (7) DVT prophylaxis: Status: Acute Assessment and plan: SCDs Hold chemical DVT ppx in setting of acute bleeding (8) Discharge planning issues: Status: Acute Assessment and plan: DNR/DNI C/s PT and palliative care. Pt now med-surg status. Subjective Subjective Patient reports: no new complaints, feels better, tolerating liquids well and afebrile; denies nausea, vomiting or shortness of breath Exam Narrative Exam Narrative: General: Pleasant middle-aged female, cachectic, Lying in bed. Pleasant and cooperative. HEENT: sclera clear, MMM Heart: RRR, no murmur Lungs: CTAB Abdomen: softly distended. NT. Extremities: no edema BLEs Objective Last Vital Signs Temp 36.6 C 01/03/23 07:15 Pulse 99 H 01/03/23 18:00 Resp 16 01/03/23 18:00 BP 97/66 L 01/03/23 18:00 Pulse Ox 95 01/03/23 18:00 Laboratory Results - last 24 hr 01/03/23 01/03/23 05:25 05:25 WBC 4.30 L RBC 4.06 Hgb 12.3 Hct 35.2 L MCV 87 MCH 30.3 MCHC 34.9 RDW 13.8 Plt Count 387 MPV 9.3 Immature Gran % See Differential Neutrophils % 37.0 Band Neutrophils % 3 Lymphocytes % 31.0 Atypical Lymphs % 1 Monocytes % 26.0 Eosinophils % 1.0 Basophils % 1.0 Nucleated RBC % 0.0 Absolute Neutrophils 1.72 Absolute Lymphocytes 1.38 Absolute Monocytes 1.12 H Absolute Eosinophils 0.04 Absolute Basophils 0.04 RBC Morphology Normal Sodium 129 L Potassium 2.6 L* Chloride 96 L Carbon Dioxide 25.6 Anion Gap 7.4 BUN 4 L Creatinine 0.5 L Est GFR (CKD-EPI 2020) 104.67 Glucose 80 Calcium 7.1 L Magnesium 1.8 Time Spent with Patient Time Spent with Patient: 25-34 minutes Time was spent: preparing to see the patient(eg.review tests), obtaining and/or reviewing separately otained hiistory, ordering medications,tests, procedures, referring, communicating with other health residential child care counselor and indepentently interpreting results
[2023-01-03] MEDS: Acetaminophen 325 MG TAB 650 MG PO (20:01)
[2023-01-03] MEDS: Zolpidem 5 MG TAB 10 MG PO (21:06)
[2023-01-03] MEDS: Atorvastatin 40 MG TAB PO (21:06)
[2023-01-04] VITALS (26 sets, daily range): BP systolic 95–123; BP diastolic 59–110; PULSE 79–105; RESP 15–29; TEMP 36.5–37.8; O2SAT 91–97
[2023-01-04] MEDS: Normal Saline Flush 10 ML SYR IVP ×3 (02:15→19:56)
[2023-01-04] MEDS: oxyCODONE 5 MG TAB PO ×5 (03:46→22:21)
[2023-01-04] MEDS: Sucralfate 1 GM TAB PO ×4 (03:46→21:28)
[2023-01-04] MEDS: Acetaminophen 325 MG TAB 650 MG PO ×2 (03:46→19:53)
[2023-01-04 06:28] LABS: HCT 33.6 % (36.0-46.0); HGB 11.5 g/dL (11.2-15.7); MCH 29.8 pg (27.0-33.0); MCHC 34.2 % (32.0-36.0); MCV 87 fL (80-95); MPV 9.4 fL (8.0-11.0); Platelet Count 301 10^3/uL (130-400); RBC 3.86 10^6/uL (3.93-5.22); RDW 14.1 % (11.7-14.6); RDW-SD 43.8 fL; WBC 5.13 10^3/uL (4.4-10.8)
[2023-01-04 06:54] LABS: ALT 11 U/L (14-59); AST 12 U/L (15-37); Albumin 1.5 g/dL (3.4-5.0); Alkaline Phosphatase 99 U/L (46-116); Anion Gap 7.6 mmol/L (3-11); BUN 3 mg/dL (7-18); Bilirubin, Total 0.5 mg/dL (0.2-1.0); CO2 25.4 mmol/L (21.0-32.0); CREATININE 0.4 mg/dL (0.55-1.02); Calcium 6.6 mg/dL (8.5-10.1); Chloride 99 mmol/L (98-107); Estimated GFR 110.45 (mL/min/1.73m2); Glucose 76 mg/dL (74-106); Potassium 3.2 mmol/L (3.5-5.1); Sodium 132 mmol/L (136-145); Total Protein 4.4 g/dL (6.4-8.2)
[2023-01-04] MEDS: Pantoprazole 40 MG VIAL IVP ×2 (08:58→19:55)
[2023-01-04] MEDS: guaiFENesin 600 MG TABCR PO ×2 (08:58→19:56)
[2023-01-04] MEDS: Metoclopramide 10 MG TAB PO ×4 (08:58→21:27)
[2023-01-04] MEDS: Potassium Chloride 20 MEQ TABCR PO ×2 (08:58→19:52)
[2023-01-04] MEDS: Polyethylene Glycol 3350 17 GM PACKET PO (08:58)
[2023-01-04] MEDS: Midodrine 2.5 MG TAB 5 MG PO ×3 (08:58→19:55)
--- NOTE | 2023-01-04 09:11 | CMPROGNOTE_ITS ---
Date of service: 01/04/23 Time of Service: 09:12 Care Management Progress Note Progress Note Text Progress Note Text: S/O:Aileen was lying in bed when CM met with her. She was more awake and interactive today and CM was able to converse with her. Discharge planning was discussed and Aileen informed CM that she plans to return home when discharged. She indicated that she feels she has enough assistance from her family. She may consider home health if it is recommended. Clinically she is doing much better. Her H&H is relatively stable as are her vital signs. She has no new complaints today.Late in the day her son Surya came to visit and asked to speak to CM. After discussing the situation, Aileen has agreed to transfer to a SNF for short term rehab and possibly intermediate care if her condition continues to deteriorate. Referrals will be sent on Saturday. [facility] identified [facility] their first choice. A: Aileen is a 62 year old woman admitted on 12/31/22 with a GI Bleed P:Anticipate Aileen will discharge home with new home health services. It is p ossible that she will transition to hospice at some point in the near future. She may consider SNF for hospice care, but that conversation has not taken place. CM will follow and support Aileen and her discharge planning needs.
[2023-01-04] MEDS: POTASSIUM CHLORIDE 20 MEQ/100 ML BAG 50 MEQ IVPB ×2 (09:39→11:13)
[2023-01-04] MEDS: levoFLOXacin 750 MG/150 ML BAG 100 MG IVPB (13:43)
[2023-01-04] MEDS: Normal Saline 500 ML IV (14:00)
--- NOTE | 2023-01-04 15:04 | PGE_ITS ---
Date of Service Date of service: 01/04/23 Time of Service: 15:04 Assessment and Plan Assessment and plan (1) Acute GI bleeding: Status: Acute Assessment and plan: No active bleeding on EGD 01/01/23, but does have evidence of gastritis and an esophageal ulcer. She has been heme + x1; otherwise, heme negative. Continue PPI/carafate. CT abd/pelvis obtained on 01/02 d/t increased abd distension/firmness showed suggestion of rectum and anus wall thickening, increase in left pleural effusion, fluid-filled loops of small and large bowel. Hgb has stabilized. (2) Anemia associated with acute blood loss: Status: Acute Assessment and plan: s/p transfusion of 4 units of pRBCs. H/H 12.2 > 12.3 > 11.5 (Pt received IV fluid boluses and this may account for the mild decrease). Will recheck in AM. (3) Gastritis: Status: Acute Assessment and plan: As above (4) Esophageal ulcer: Status: Acute Assessment and plan: As above (5) Hyponatremia: Status: Acute Assessment and plan: I suspect this is due to chemotherapy, decreased PO intake. Na improved to 132. Giving IV NS boluses prn d/t marginal BP readings which should help increase Na level. Monitor. 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 Palliative care consulted, and the patient is DNR/DNI. (7) DVT prophylaxis: Status: Acute Assessment and plan: SCDs Hold chemical DVT ppx in setting of acute bleeding (8) Discharge planning issues: Status: Acute Assessment and plan: DNR/DNI PT and palliative care. Pt now med-surg status. Subjective Subjective Patient reports: no new complaints, feels better, tolerating liquids well (She requests advancing diet) and afebrile; denies nausea, vomiting or shortness of breath Exam Narrative Exam Narrative: General: Pleasant middle-aged female, cachectic, Lying in bed. Pleasant and cooperative. HEENT: sclera clear, MMM Heart: RRR, no murmur Lungs: CTAB Abdomen: softly distended. NT. Extremities: no edema BLEs Objective Last Vital Signs Temp 36.5 C 01/04/23 09:04 Pulse 84 01/04/23 12:00 Resp 17 01/04/23 12:00 BP 108/69 01/04/23 12:00 Pulse Ox 96 01/04/23 12:00 Laboratory Results - last 24 hr 01/04/23 01/04/23 05:30 05:30 WBC 5.13 RBC 3.86 L Hgb 11.5 Hct 33.6 L MCV 87 MCH 29.8 MCHC 34.2 RDW 14.1 Plt Count 301 MPV 9.4 Sodium 132 L Potassium 3.2 L Chloride 99 Carbon Dioxide 25.4 Anion Gap 7.6 BUN 3 L Creatinine 0.4 L Est GFR (CKD-EPI 2020) 110.45 Glucose 76 Calcium 6.6 L Total Bilirubin 0.5 AST 12 L ALT 11 L Alkaline Phosphatase 99 Total Protein 4.4 L Albumin 1.5 L Time Spent with Patient Time Spent with Patient: 25-34 minutes Time was spent: preparing to see the patient(eg.review tests), obtaining and/or reviewing separately otained hiistory, ordering medications,tests, procedures, referring, communicating with other health client care coordinator, indepentently interpreting results and counseling the patient
--- NOTE | 2023-01-04 16:56 | PT.INTREAT ---
Date of service: 01/04/23 Time of Service: 15:53 PT Notes Visit Reasons: GI Bleed, Hypokalemia, Hypomagnesemia Inpatient Physical Therapy Treatment Note [facility] Date: 01/04/23 PRECAUTIONS: Fall, standard, activity as tolerated SUBJECTIVE: Patient supine in bed, agreeable to therapy, reports she is not feeling any better but wants to get this done. OBJECTIVE: PAIN: Yes, stomach ache BED MOBILITY/TRANSFERS Rolling L/R: independent Supine-sit: min assist Sit-supine: min assist Sit-stand: CGA from elevated bed Stand-sit: standby assist Bed-Chair: contact guard Chair-bed: contact guard GAIT Assistive Device: Front wheeled walker Weight bearing: full Assist: CGA and help managing IV pole, telemetry, Rogers Distance: 45 feet Deviation: extreme reduced kamron, reduced step length, adequate step height, good posture. Patient reports the gait belt makes her feel more comfortable, reports being nervous about ambulation with other people. Unclear if she is referring to staff, or pre-admission. THERACT: Patient participates in transfer training, bed mobility training. Demonstrates adaptability, using feet to maneuver blankets that she can't reach with her hands. ASSESSMENT: Patient looks much better this afternoon after she rested, ate, and had medication for her pain. Moves cautiously. PLAN: Continue strengthening per plan of care TREATMENT CODE/TIME: 90734 Ther Act 29 minutes, 80199 Gait 24 minutes beginning at 15:53
[2023-01-04] MEDS: Atorvastatin 40 MG TAB PO (21:27)
[2023-01-04] MEDS: Zolpidem 5 MG TAB 10 MG PO (21:27)
[2023-01-05] VITALS (30 sets, daily range): BP systolic 93–123; BP diastolic 65–99; PULSE 84–105; RESP 12–24; TEMP 36.3–39.4; O2SAT 94–97
--- NOTE | 2023-01-05 | DI.RAD_ITS ---
Exam(s) XR ABDOMEN FLAT PLATE EXAM: 2D digital imaging was performed. CLINICAL HISTORY: diarrhea. COMPARISON: No exams were available for comparison TECHNIQUE: Supine views of the abdomen performed. FINDINGS: BOWEL GAS PATTERN: Gas seen through small and large bowel thought abnormal distension. Bones mainly obscured. Left hip prosthesis. Elevation of the left diaphragm again noted. Small left effusion. CALCIFICATIONS: No radiopaque calcifications visible however would be difficult to detect due to ove rlying bowel gas.. OSSEOUS STRUCTURES: Normal for age. IMPRESSION: Nonobstructive bowel gas pattern. DATA REPOSITORY: RADIATION DOSE DELIVERED:
--- NOTE | 2023-01-05 | DI.RAD_ITS ---
Exam(s) XR PORTABLE CHEST AP EXAM: XR PORTABLE CHEST AP CLINICAL HISTORY: fever TECHNIQUE: 2D digital imaging was performed. COMPARISON: CR XR PORTABLE CHEST AP POST LINE from 10/24/[address] CHEST PE ABD PELVIS W from 12/31/[address] ABDOMEN PELVIS W from 01/02/2023 CR,XR XR ABDOMEN FLAT PLATE from 01/05/2023 FINDINGS: A port is again noted over the right upper chest. There is elevation of the left diaphragm, worsenin g when compared with prior exams. There is significant left-sided the lung volume loss. Increased d ensities are again noted above the left hilum and at the left lung base. The right lung appears melchor r. IMPRESSION: Increasing left-sided atelectasis. DATA REPOSITORY: RADIATION DOSE DELIVERED:
[2023-01-05] MEDS: oxyCODONE 5 MG TAB PO ×3 (02:53→14:20)
[2023-01-05] MEDS: Sucralfate 1 GM TAB PO ×4 (03:04→20:56)
[2023-01-05] MEDS: Metoclopramide 10 MG TAB PO ×3 (06:41→16:05)
[2023-01-05] MEDS: Pantoprazole 40 MG VIAL IVP ×2 (08:36→21:14)
[2023-01-05] MEDS: Normal Saline Flush 10 ML SYR IVP ×2 (08:36→21:18)
[2023-01-05] MEDS: Potassium Chloride 20 MEQ TABCR PO ×2 (08:37→20:57)
[2023-01-05] MEDS: guaiFENesin 600 MG TABCR PO ×2 (08:37→21:00)
[2023-01-05 08:48] LABS: HCT 39.2 % (36.0-46.0); HGB 13.3 g/dL (11.2-15.7); MCH 29.8 pg (27.0-33.0); MCHC 33.9 % (32.0-36.0); MCV 88 fL (80-95); MPV 8.8 fL (8.0-11.0); Platelet Count 212 10^3/uL (130-400); RBC 4.46 10^6/uL (3.93-5.22); RDW 14.1 % (11.7-14.6); RDW-SD 44.9 fL; WBC 5.07 10^3/uL (4.4-10.8)
[2023-01-05 08:52] LABS: BUN 4 mg/dL (7-18); CREATININE 0.5 mg/dL (0.55-1.02); Calcium 7.2 mg/dL (8.5-10.1); Chloride 98 mmol/L (98-107); Estimated GFR 104.67 (mL/min/1.73m2); Glucose 80 mg/dL (74-106); Potassium 4.2 mmol/L (3.5-5.1); Sodium 131 mmol/L (136-145)
[2023-01-05] MEDS: Polyethylene Glycol 3350 17 GM PACKET PO (08:54)
[2023-01-05] MEDS: Midodrine 2.5 MG TAB 5 MG PO ×3 (08:54→20:57)
--- NOTE | 2023-01-05 14:03 | PT.INTREAT ---
Date of service: 01/05/23 Time of Service: 09:33 PT Notes Visit Reasons: GI Bleed, Hypokalemia, Hypomagnesemia Inpatient Physical Therapy Treatment Note [facility] Date: 01/05/2023 PRECAUTIONS: Fall, standard, activity as tolerated SUBJECTIVE: Patient supine in bed, agreeable to bed exercises only this morning. Stated she would try to get up later today, if up to it. OBJECTIVE: ? PAIN: No reported pain ? BED MOBILITY/TRANSFERS? Able to move with SBA within bed. ? GAIT? Held per patient request. ? THERACT: Performed Ankle pumps x 12 reps each, quad / glut sets x 10 reps, heel slides x 10 reps each, SLRs x 10 reps each and hip IR/ER x 10 reps. Vitals monitored with telemetry.? ASSESSMENT:?Tolerated bed exercises nicely. Gives good effort with each exercise. PLAN: Continue strengthening, per plan of care, as able to tolerate. TREATMENT CODE/TIME: 18525 x 1, 9:33 to 9:47 (14')
[2023-01-05] MEDS: Prochlorperazine 10 MG/2 ML VIAL 5 MG IVP (14:21)
--- NOTE | 2023-01-05 16:07 | W.PM.PROGNOT ---
Date of Service Date of service: 01/05/23 Time of Service: 16:07 Assessment and Plan Assessment and plan (1) Acute GI bleeding: Status: Acute Assessment and plan: No active bleeding on EGD 01/01/23, but does have evidence of gastritis and an esophageal ulcer. She has been heme + x1; otherwise, heme negative. Continue PPI/carafate. CT abd/pelvis obtained on 01/02 d/t increased abd distension/firmness showed suggestion of rectum and anus wall thickening, increase in left pleural effusion, fluid-filled loops of small and large bowel. Hgb has stabilized. (2) Anemia associated with acute blood loss: Status: Acute Assessment and plan: s/p transfusion of 4 units of pRBCs. H/H 12.2 > 12.3 > 11.5 (Pt received IV fluid boluses and this may account for the mild decrease) > 13.3. Will recheck in AM. (3) Gastritis: Status: Acute Assessment and plan: As above (4) Esophageal ulcer: Status: Acute Assessment and plan: As above (5) Hyponatremia: Status: Acute Assessment and plan: I suspect this is due to chemotherapy, decreased PO intake. Na improved to 132> 131. Giving IV NS boluses prn d/t marginal BP readings which should help increase Na level. Monitor. 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 Palliative care consulted, and the patient is DNR/DNI. (7) DVT prophylaxis: Status: Acute Assessment and plan: SCDs Hold chemical DVT ppx in setting of acute bleeding (8) Discharge planning issues: Status: Acute Assessment and plan: DNR/DNI PT and palliative care. Pt now med-surg status. Subjective Subjective Patient reports: no new complaints, feels better, vomiting (one episode after eating a creamy soup. ) and afebrile; denies shortness of breath Exam Narrative Exam Narrative: General: Pleasant middle-aged female, cachectic, Lying in bed. HEENT: sclera clear, MMM Heart: RRR, no murmur Lungs: CTAB Abdomen: softly distended. NT. Extremities: no edema BLEs Objective Last Vital Signs Temp 36.3 C L 01/05/23 12:30 Pulse 96 H 06/24/23 11:00 Resp 18 01/05/23 11:00 BP 94/65 L 01/05/23 11:00 Pulse Ox 97 01/05/23 01:28 Laboratory Results - last 24 hr 01/05/23 01/05/23 08:17 08:17 WBC 5.07 RBC 4.46 Hgb 13.3 Hct 39.2 MCV 88 MCH 29.8 MCHC 33.9 RDW 14.1 Plt Count 212 MPV 8.8 Sodium 131 L Potassium 4.2 D Chloride 98 Carbon Dioxide 29.0 Anion Gap 4.0 BUN 4 L Creatinine 0.5 L Est GFR (CKD-EPI 2020) 104.67 Glucose 80 Calcium 7.2 L Time Spent with Patient Time Spent with Patient: 25-34 minutes Time was spent: preparing to see the patient(eg.review tests), obtaining and/or reviewing separately otained hiistory, ordering medications,tests, procedures, referring, communicating with other health home health aide caregiver, indepentently interpreting results and counseling the patient
[2023-01-05] MEDS: Acetaminophen 325 MG TAB 650 MG PO (16:58)
--- NOTE | 2023-01-05 18:39 | DI.VRAD_ITS ---
PROCEDURE INFORMATION: Exam: XR Chest Exam date and time: 01/05/2023 5:49 PM Age: 62 years old Clinical indication: Other: Fever TECHNIQUE: Imaging protocol: Radiologic exam of the chest. Views: 1 view. COMPARISON: CT CHEST PE ABD PELVIS W 12/31/2022 2:48 PM FINDINGS: Tubes, catheters and devices: CT certified triangular port right chest wall with subclavian transvenous leads to the proximal portion of the superior vena cava. Lungs: The patient has a lung cancer with decreased size of the left pleural space and elevation of the left diaphragm. The left lower lobe adjacent to the diaphragm shows increased density consistent with atelectasis. Pneumonia this location can not be excluded. The right lung is within normal limits. Pleural spaces: No pneumothorax. Possible tiny left subpulmonic effusion. Heart/Mediastinum: Unremarkable. No cardiomegaly. Bones/joints: Unremarkable. IMPRESSION: Known left lung cancer with volume loss. Consolidation either atelectasis or acute pneumonia left lung base. There may be a tiny associated effusion. Dictated and Authenticated by: Roger Farris MD. Ordering:LILIANA Harding MD
--- NOTE | 2023-01-05 18:42 | DI.VRAD_ITS ---
PROCEDURE INFORMATION: Exam: XR Abdomen Exam date and time: 01/05/2023 5:48 PM Age: 62 years old Clinical indication: Other: Diarrhea TECHNIQUE: Imaging protocol: Radiologic exam of the abdomen. Views: Frontal supine view of the abdomen. 1 View. COMPARISON: CT ABDOMEN PELVIS W 01/02/2023 3:40 PM FINDINGS: Diaphragm: Similar to the chest radiograph there is elevation of the left diaphragm. The lung markings in the inferior left portion of the lung are more consistent with atelectasis than pneumonia. Gastrointestinal tract: Aerophagia bowel-gas pattern. No signs of bowel obstruction or definite free air. Bones/joints: Unremarkable. IMPRESSION: 1. Aerophagia bowel-gas pattern without evidence of obstruction. 2. Probable atelectasis left lung base. Dictated and Authenticated by: Roger Farris MD. Ordering:LILIANA Harding MD
[2023-01-05] MEDS: Atorvastatin 40 MG TAB PO (20:56)
[2023-01-05 21:09] LABS: Bilirubin Negative (Negative); Blood Trace-intact (Negative); Clarity Clear (Clear); Glucose Negative (Negative); Ketones Negative (Negative); Leukocyte Esterase Negative (Negative); Nitrite Negative (Negative); Specific Gravity 1.015 (1.005-1.025); pH 8.5 (5-8)
[2023-01-05] MEDS: Zolpidem 5 MG TAB 10 MG PO (21:14)
[2023-01-05 21:17] LABS: Bacteria Rare HPF (Negative); C & S Indicated? No; Casts Negative LPF (Negative); Crystals Negative HPF (Negative); Epithelial Cells Negative HPF (Negative); Mucus Negative (Negative); WBC Negative HPF (0-5)
[2023-01-06] VITALS (7 sets, daily range): BP systolic 93–118; BP diastolic 64–87; PULSE 91–111; RESP 18–20; TEMP 36.3–38.1; O2SAT 94–98
[2023-01-06] MEDS: oxyCODONE 5 MG TAB PO ×3 (07:38→21:35)
--- NOTE | 2023-01-06 08:20 | PT.INTREAT ---
Date of service: 01/06/23 Time of Service: 08:10 PT Notes Visit Reasons: GI Bleed, Hypokalemia, Hypomagnesemia Inpatient Physical Therapy Treatment Note [facility] Date: 01/06/2023 PRECAUTIONS: Fall, standard, activity as tolerated SUBJECTIVE: Doing better a little better today, but having trouble with nausea. Willing to get up into chair, but was eager to get back to bed about an hour and half later. OBJECTIVE: ? PAIN: Stomach irritation ? BED MOBILITY/TRANSFERS? Performed supine to sit with nursing prior to my arrival. Did require slight assist with getting legs back up on bed when going sit to supine. ? GAIT? Entered room while patient was sitting up with nursing. Agreeable to sitting up in chair for breakfast. Device: FWW Weight bearing: Full Assist: SBA Distance: 3ft bed to chair earlier in morning and 3ft chair to bed later in morning Moving carefully with walker. ? THERACT: Performed ankle pumps x 15 reps each, quad / glut sets x 10 reps, heel slides x 10 reps, hook lying marching x 10 reps, supine hip abd/adduction x 10 reps each and hip IR/ER x 10 reps. Vitals monitored with telemetry.? ASSESSMENT:?Tolerated ambulation to / from chair very well and continues to offer good effort with bed exercises despite stomach not feeling well. PLAN: Continue strengthening, per plan of care, as able to tolerate. TREATMENT CODE/TIME: 53470 x 1, 36618 x 1, 8:10 to 8:20 (10) and 9:45 to 10:00 (15)
[2023-01-06] MEDS: Potassium Chloride 20 MEQ TABCR PO ×2 (09:59→20:07)
[2023-01-06] MEDS: guaiFENesin 600 MG TABCR PO ×2 (09:59→20:07)
[2023-01-06] MEDS: Pantoprazole 40 MG VIAL IVP ×2 (09:59→20:07)
[2023-01-06] MEDS: Metoclopramide 10 MG TAB PO ×3 (10:00→21:35)
[2023-01-06] MEDS: Midodrine 2.5 MG TAB 5 MG PO ×3 (10:00→20:07)
[2023-01-06] MEDS: Normal Saline Flush 10 ML SYR IVP ×3 (10:00→20:07)
[2023-01-06] MEDS: Dronabinol 2.5 MG CAP 5 MG PO ×2 (11:32→16:17)
[2023-01-06] MEDS: Sucralfate 1 GM TAB PO ×3 (11:33→21:34)
[2023-01-06] MEDS: levoFLOXacin 750 MG/150 ML BAG 100 MG IVPB (12:58)
[2023-01-06 14:00] LABS: C Diff PCR Negative (Negative)
--- NOTE | 2023-01-06 15:41 | PGE_ITS ---
Date of Service Date of service: 01/06/23 Time of Service: 15:41 Assessment and Plan Assessment and plan (1) Acute GI bleeding: Status: Acute Assessment and plan: No active bleeding on EGD 01/01/23, but does have evidence of gastritis and an esophageal ulcer. She has been heme + x1; otherwise, heme negative. Continue PPI/carafate. CT abd/pelvis obtained on 01/02 d/t increased abd distension/firmness showed suggestion of rectum and anus wall thickening, increase in left pleural effusion, fluid-filled loops of small and large bowel. Hgb has stabilized. (2) Anemia associated with acute blood loss: Status: Acute Assessment and plan: s/p transfusion of 4 units of pRBCs. H/H 12.2 > 12.3 > 11.5 (Pt received IV fluid boluses and this may account for the mild decrease) > 13.3. Will recheck in AM. (3) Gastritis: Status: Acute Assessment and plan: As above Nausea intermittently. Cont ACHS reglan and prn compazine. (4) Esophageal ulcer: Status: Acute Assessment and plan: As above (5) Hyponatremia: Status: Acute Assessment and plan: I suspect this is due to chemotherapy, decreased PO intake. Na improved to 132> 131. Giving IV NS boluses prn d/t marginal BP readings which should help increase Na level. Monitor. 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 Palliative care consulted, and the patient is DNR/DNI. (7) DVT prophylaxis: Status: Acute Assessment and plan: SCDs Hold chemical DVT ppx in setting of acute bleeding (8) Discharge planning issues: Status: Acute Assessment and plan: DNR/DNI PT and palliative care. Pt now med-surg status. Subjective Subjective Patient reports: diarrhea (C Diff neg) and nausea; denies feels better (More nausea and gen malaise today), vomiting or shortness of breath Exam Narrative Exam Narrative: General: Sitting in recliner with emesis bag in lap. Appears fatigued today. Affect less bright. HEENT: sclera clear, MMM Heart: RRR, no murmur Lungs: CTAB Abdomen: softly distended. NT. Extremities: no edema BLEs Objective Last Vital Signs Temp 36.3 C L 01/06/23 07:25 Pulse 111 H 01/06/23 08:20 Resp 12 01/05/23 16:48 BP 118/87 01/06/23 08:20 Pulse Ox 94 01/05/23 20:01 Laboratory Results - last 24 hr 01/05/23 01/06/23 20:56 06:00 Urine Color Yellow Urine Clarity Clear Urine pH 8.5 H Ur Specific [place] 1.015 Urine Protein Negative Urine Ketones Negative Urine Blood Trace-intact H Urine Nitrite Negative Urine Bilirubin Negative Urine Urobilinogen 4.0 H Ur Leukocyte Esterase Negative Urine RBC 3-5 H Urine WBC Negative Ur Epithelial Cells Negative Urine Crystals Negative Urine Bacteria Rare Urine Casts Negative Urine Mucus Negative Ur Culture Indicated? No Urine Glucose Negative Stl C.difficile Tox PCR Negative Time Spent with Patient Time Spent with Patient: 25-34 minutes Time was spent: preparing to see the patient(eg.review tests), obtaining and/or reviewing separately otained hiistory, ordering medications,tests, procedures, referring, communicating with other health healthcare administration intern, indepentently interpreting results and counseling the patient
[2023-01-06] MEDS: Normal Saline 250 ML 500 ML IV (16:00)
[2023-01-06] MEDS: Acetaminophen 325 MG TAB 650 MG PO (16:08)
--- NOTE | 2023-01-06 16:56 | NUR.NOTE ---
Patient was down graded from the ICU to [facility]. Patient has been transferred in room 214. All of patients belongings have been brought with her. Has been oriented to to the room, bedside table & call light within reach. All questions & or concerns have been addressed. Will continue to monitored. Nursing Note:
[2023-01-06] MEDS: Mirtazapine 15 MG TAB PO (21:34)
[2023-01-06] MEDS: Atorvastatin 40 MG TAB PO (21:35)
[2023-01-07] MEDS: oxyCODONE 5 MG TAB PO ×5 (01:46→22:40)
[2023-01-07] MEDS: Sucralfate 1 GM TAB PO ×4 (06:36→20:23)
[2023-01-07] MEDS: Metoclopramide 10 MG TAB PO ×4 (06:36→20:24)
[2023-01-07 07:00] LABS: HCT 36.7 % (36.0-46.0); HGB 12.2 g/dL (11.2-15.7); MCH 29.7 pg (27.0-33.0); MCHC 33.2 % (32.0-36.0); MCV 89 fL (80-95); MPV 9.5 fL (8.0-11.0); Platelet Count 106 10^3/uL (130-400); RBC 4.11 10^6/uL (3.93-5.22); RDW 13.9 % (11.7-14.6); RDW-SD 44.6 fL; WBC 6.22 10^3/uL (4.4-10.8)
[2023-01-07 07:10] VITALS: BP 122/85; PULSE 102; RESP 16; TEMP 36.8; O2SAT 95
[2023-01-07 07:14] LABS: ALT 19 U/L (14-59); AST 16 U/L (15-37); Albumin 1.6 g/dL (3.4-5.0); Alkaline Phosphatase 120 U/L (46-116); Anion Gap 6.9 mmol/L (3-11); BUN 5 mg/dL (7-18); Bilirubin, Total 0.3 mg/dL (0.2-1.0); CO2 25.1 mmol/L (21.0-32.0); CREATININE 0.3 mg/dL (0.55-1.02); Calcium 7.4 mg/dL (8.5-10.1); Chloride 98 mmol/L (98-107); Estimated GFR 118.38 (mL/min/1.73m2); Glucose 91 mg/dL (74-106); Potassium 4.3 mmol/L (3.5-5.1); Sodium 130 mmol/L (136-145); Total Protein 4.7 g/dL (6.4-8.2)
[2023-01-07] MEDS: Potassium Chloride 20 MEQ TABCR PO ×2 (08:20→20:24)
[2023-01-07] MEDS: Pantoprazole 40 MG VIAL IVP ×2 (08:20→20:22)
[2023-01-07] MEDS: guaiFENesin 600 MG TABCR PO ×2 (08:20→20:23)
[2023-01-07] MEDS: Midodrine 2.5 MG TAB 5 MG PO ×3 (08:20→20:24)
[2023-01-07] MEDS: Dronabinol 2.5 MG CAP 5 MG PO ×2 (10:26→16:12)
[2023-01-07 11:11] VITALS: BP 105/74; PULSE 98; RESP 17; TEMP 36.9; O2SAT 94
[2023-01-07 15:28] VITALS: BP 106/75; PULSE 101; RESP 18; TEMP 36.6; O2SAT 94
--- NOTE | 2023-01-07 16:14 | W.PM.DS.N ---
Date of service: 01/07/23 Time of Service: 16:15 DS: Diagnosis Discharge Diagnosis (1) Acute GI bleeding: Status: Acute (2) Anemia associated with acute blood loss: Status: Acute (3) Gastritis: Status: Acute (4) Esophageal ulcer: Status: Acute (5) Hyponatremia: Status: Acute (6) Malignant neoplasm of unspecified part of unspecified bronchus or lung: Status: Acute (7) DVT prophylaxis: Status: Acute (8) Discharge planning issues: Status: Acute Discharge Plan Disposition Condition: Serious Discharge Details Reason For Visit: GI Bleed, Hypokalemia, Hypomagnesemia Admit Date/Time: 12/31/22 15:38 Admit Provider: Nile Valdez Attending Provider: Nile Valdez Primary Care Provider: Ashleigh Martinez Home Meds and New Rx's Prescriptions: No Action atorvastatin 40 mg tablet 40 mg PO HS Patient Comments: TAKE 1 TABLET BY MOUTH EVERY EVENING azithromycin 250 mg tablet 250 mg PO DIRECTED Patient Comments: rx complete 12/31/22 CT ferrous sulfate [FeroSul] 325 mg (65 mg iron) tablet 325 mg PO TID Patient Comments: TABLET 1 TABLET BY MOUTH THREE TIMES DAILY aspirin 81 mg tablet,chewable 81 mg PO DAILY Patient Comments: CHEW AND SWALLOW 1 TABLET BY MOUTH DAILY zolpidem 10 mg tablet 10 mg PO HS Patient Comments: TAKE 1 TABLET BY MOUTH EVERY DAY AT BEDTIME albuterol sulfate 90 mcg/actuation HFA aerosol inhaler 1 - 2 puff INHALATION Q6H PRN Patient Comments: INHALE 1 -2 PUFFS BY MOUTH EVERY 6 HOURS NEEDED DS: Data Vitals/I&O Vitals and I&O: Vital Signs Temperature 36.6 C 01/07/23 15:28 Temperature Source Tympanic 01/07/23 15:28 Pulse 101 H 01/07/23 15:28 Pulse Rhythm Regular 01/07/23 07:30 Pulse 94 H 01/05/23 11:01 Respiratory Rate 18 01/07/23 15:28 Respiratory Effort Normal, Non-Labored 01/07/23 07:30 Respiratory Depth Normal 01/07/23 07:30 Respiratory Pattern Normal 01/07/23 07:30 Blood Pressure 106/75 01/07/23 15:28 Blood Pressure Mean 83 01/06/23 15:20 Blood Pressure Position Sitting 01/03/23 00:44 Pulse Oximetry 94 01/07/23 15:28 Oxygen Delivery Method Room Air 01/07/23 15:28 Oxygen Flow Rate 0 01/07/23 15:28 Pain Level 0 01/07/23 15:28 Comment RN notified 01/01/23 20:15 Intake & Output 01/06/23 01/07/23 01/07/23 23:59 11:59 23:59 Intake Total 750 / 1110 600 / 600 Output Total 400 / 400 Balance 750 / -2190 200 / 200 Weight 44.3 kg Intake: IV 250 / 250 150 / 150 Oral 500 / 860 450 / 450 Output: Urine 400 / 400 Other: Urine Color Pale Yellow Urine Appearance Clear Clear Comment pt reports that urine incontinence is not the patients baseline. pt was total incontinence Incontinent large amount of urine. incont of large amount of urine Stool Size Small Stool Characteristics Liquid Voiding Methods Diaper Bedside Commode Diaper Incontinent Incontinent Data Completed and Pending Labs on day of discharge: Labs from last 24 hours 01/07/23 01/07/23 06:22 06:22 WBC 6.22 RBC 4.11 Hgb 12.2 Hct 36.7 MCV 89 MCH 29.7 MCHC 33.2 RDW 13.9 Plt Count 106 L MPV 9.5 Sodium 130 L Potassium 4.3 Chloride 98 Carbon Dioxide 25.1 Anion Gap 6.9 BUN 5 L Creatinine 0.3 L Est GFR (CKD-EPI 2020) 118.38 Glucose 91 Calcium 7.4 L Total Bilirubin 0.3 AST 16 ALT 19 Alkaline Phosphatase 120 H Total Protein 4.7 L Albumin 1.6 L Preliminary micro results at discharge 01/05/23 18:58 Blood Culture - Preliminary Blood NO GROWTH 24 HOURS 01/05/23 18:47 Blood Culture - Preliminary Blood NO GROWTH 24 HOURS PFSH All Active Problems (Updated 01/01/23 @ 14:32 by Che Emery NP) Palliative care encounter (Acute) Metastatic non-small cell lung cancer (Acute) Hyponatremia (Acute) Discharge planning issues (Acute) DVT prophylaxis (Acute) Esophageal ulcer (Acute) Gastritis (Acute) Anemia associated with acute blood loss (Acute) Acute GI bleeding (Acute) Hypotension (Acute) Abdominal wall mass of periumbilical region (Acute) Malignant neoplasm of unspecified part of unspecified bronchus or lung (Acute) Thrombocytosis, unspecified (Acute) Transient cerebral ischemic attack, unspecified (Chronic) Insomnia, unspecified (Acute) Medical History (Updated 01/01/23 @ 14:32 by Che Emery NP) Alcohol abuse Carbuncle COVID-19 (~07/2022) asymptomatic History of stroke 07/2022 Surgical History (Updated 01/02/23 @ 08:50 by Billie Jordan) History of bronchoscopy History of carpal tunnel repair History of esophagogastroduodenoscopy (EGD) (~12/2022) Hx of appendectomy Hx of hemorrhoidectomy Social History Smoking/Tobacco Use Status: Former Tobacco Use Quit Date: 08/15/22 Smoking risk assessment performed?: Yes Alcohol Intake: former Details: weekly Do you feel safe at home: Yes Do you feel safe in your relationship?: Yes
--- NOTE | 2023-01-07 16:26 | PDOC.CMPRO ---
Care Management Progress Note Progress Note Text Progress Note Text: S/O:Aileen was lying in bed when CM met with her. She stated that she is really tired and just wants to sleep. Per provider, Aileen is ready for discharge. She again stated that she wants to go home. CM contacted her son Vincent to see if he was able to transport her and he was upset that he did not know sooner. He verbalized that he did not feel she was safe to care for herself. CM spoke to Aileen again and she reluctantly agreed to go to [facility] if a bed is available. CM will follow up tomorrow on the referral that was sent, and Aileen will remain at [facility]. A: Aileen is a 62 year old woman admitted on 12/31/22 with a GI Bleed P:Anticipate Aileen will discharge home with new home health services, although, if a bed is available, she may consider SNF for short term rehab. Aileen is inconsistent in her willingness to consider that option. Most recently, she has agreed to consider [facility] and the referral has been sent CM will follow and support Aileen and her discharge planning needs.
--- NOTE | 2023-01-07 16:50 | PT.INNT ---
Date of service: 01/07/23 Time of Service: 14:32 PT Notes Visit Reasons: GI Bleed, Hypokalemia, Hypomagnesemia Patient declines treatment at 1432, 1648 stating first that she needs a nap, please check back later, and then that she is too depressed because her son won't let her go home and wants her to go to a SNF instead.
--- NOTE | 2023-01-07 17:53 | W.PM.PROGNOT ---
Date of Service Date of service: 01/07/23 Time of Service: 17:53 Assessment and Plan Assessment and plan (1) Acute GI bleeding: Status: Acute Assessment and plan: No active bleeding on EGD 01/01/23, but does have evidence of gastritis and an esophageal ulcer. She has been heme + x1; otherwise, heme negative. Continue PPI/carafate. CT abd/pelvis obtained on 01/02 d/t increased abd distension/firmness showed suggestion of rectum and anus wall thickening, increase in left pleural effusion, fluid-filled loops of small and large bowel. Hgb has stabilized. (2) Anemia associated with acute blood loss: Status: Acute Assessment and plan: s/p transfusion of 4 units of pRBCs. H/H 12.2 > 12.3 > 11.5 (Pt received IV fluid boluses and this may account for the mild decrease) > 13.3. Will recheck in AM. (3) Gastritis: Status: Acute Assessment and plan: As above Nausea intermittently. Cont ACHS reglan and prn compazine. (4) Esophageal ulcer: Status: Acute Assessment and plan: As above (5) Hyponatremia: Status: Acute Assessment and plan: I suspect this is due to chemotherapy, decreased PO intake. Na improved to 132> 131>130 Giving IV NS boluses prn d/t marginal BP readings which should help increase Na level. Monitor. 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 Palliative care consulted, and the patient is DNR/DNI. (7) DVT prophylaxis: Status: Acute Assessment and plan: SCDs Hold chemical DVT ppx in setting of acute bleeding (8) Discharge planning issues: Status: Acute Assessment and plan: DNR/DNI PT and palliative care. Pt now med-surg status. She wanted to d/c to home today but she lives alone and her son believes she cannot manage on her own. She stated He's the boss so she isn't discharging. She is now reluctantly agreeing to SNF placement. Subjective Subjective Patient reports: no new complaints, feels better, nausea (No nausea today.) and afebrile; denies vomiting or shortness of breath Exam Narrative Exam Narrative: General: Sitting in recliner. NAD HEENT: sclera clear, MMM Heart: RRR, no murmur Lungs: CTAB Abdomen: softly distended. NT. Extremities: no edema BLEs Objective Last Vital Signs Temp 36.6 C 01/07/23 15:28 Pulse 101 H 01/07/23 15:28 Resp 18 01/07/23 15:28 BP 106/75 01/07/23 15:28 Pulse Ox 94 01/07/23 15:28 Laboratory Results - last 24 hr 01/07/23 01/07/23 06:22 06:22 WBC 6.22 RBC 4.11 Hgb 12.2 Hct 36.7 MCV 89 MCH 29.7 MCHC 33.2 RDW 13.9 Plt Count 106 L MPV 9.5 Sodium 130 L Potassium 4.3 Chloride 98 Carbon Dioxide 25.1 Anion Gap 6.9 BUN 5 L Creatinine 0.3 L Est GFR (CKD-EPI 2020) 118.38 Glucose 91 Calcium 7.4 L Total Bilirubin 0.3 AST 16 ALT 19 Alkaline Phosphatase 120 H Total Protein 4.7 L Albumin 1.6 L Time Spent with Patient Time Spent with Patient: 25-34 minutes Time was spent: preparing to see the patient(eg.review tests), obtaining and/or reviewing separately otained hiistory, ordering medications,tests, procedures, referring, communicating with other health laboratory animal care veterinarian, indepentently interpreting results and counseling the patient
[2023-01-07 19:50] VITALS: BP 118/82; PULSE 100; RESP 16; TEMP 37.2; O2SAT 97
[2023-01-07] MEDS: Mirtazapine 15 MG TAB PO (20:24)
[2023-01-07] MEDS: Atorvastatin 40 MG TAB PO (20:24)
[2023-01-07] MEDS: Acetaminophen 325 MG TAB 650 MG PO (20:27)
[2023-01-07 23:54] VITALS: BP 103/71; PULSE 91; RESP 16; TEMP 36.7; O2SAT 95
[2023-01-08 04:09] VITALS: BP 109/76; PULSE 92; RESP 16; TEMP 36.3; O2SAT 97
[2023-01-08] MEDS: oxyCODONE 5 MG TAB PO ×2 (06:31→12:22)
[2023-01-08 06:32] LABS: Anion Gap 6.4 mmol/L (3-11); BUN 6 mg/dL (7-18); CO2 24.6 mmol/L (21.0-32.0); CREATININE 0.4 mg/dL (0.55-1.02); Calcium 7.5 mg/dL (8.5-10.1); Chloride 100 mmol/L (98-107); Estimated GFR 110.45 (mL/min/1.73m2); Glucose 88 mg/dL (74-106); Potassium 4.6 mmol/L (3.5-5.1); Sodium 131 mmol/L (136-145)
[2023-01-08 07:12] VITALS: BP 117/82; PULSE 90; RESP 18; TEMP 36.6; O2SAT 97
[2023-01-08] MEDS: Normal Saline Flush 10 ML SYR IVP ×3 (08:34→14:49)
[2023-01-08] MEDS: Pantoprazole 40 MG VIAL IVP (08:34)
[2023-01-08] MEDS: Sucralfate 1 GM TAB PO ×4 (08:35→20:14)
[2023-01-08] MEDS: Potassium Chloride 20 MEQ TABCR PO ×2 (08:35→20:14)
[2023-01-08] MEDS: Metoclopramide 10 MG TAB PO ×4 (08:35→20:14)
[2023-01-08] MEDS: Midodrine 2.5 MG TAB 5 MG PO ×3 (08:35→20:14)
[2023-01-08] MEDS: guaiFENesin 600 MG TABCR PO ×2 (08:35→20:14)
--- NOTE | 2023-01-08 09:32 | PDOC.CMPRO ---
Date of service: 01/08/23 Time of Service: 09:32 Care Management Progress Note Progress Note Text Progress Note Text: S/O:Aileen was lying in bed when TARIK met with her. She was smiling and seemed much more alert and interactive. T[facility]IK informed her that [facility] offered her [facility] bed pending prior authorization from her insurance company. Aileen has not felt she had enough energy to work with PT in the past couple of days but was encouraged to do so today. She agreed, and did very well with the FUNERAL DIRECTOR/EMBALMER. Updated clinicals were sent to her insurance and a final determination is expected by tomorrow. TARIK spoke with and updated her son Vincent this afternoon. A: Aileen is a 62 year old woman admitted on 12/31/22 with a GI Bleed P:Anticipate Aileen will discharge home with new home health services, although, if a bed is available,? she may consider SNF for short term rehab. Aileen is inconsistent in her willingness to consider that option. Most recently, she has agreed to consider [facility] and the referral has been sent CM will follow and support Aileen and her discharge planning needs.
[2023-01-08 11:00] VITALS: BP 118/81; PULSE 90; RESP 18; TEMP 36.6; O2SAT 96
[2023-01-08] MEDS: Dronabinol 2.5 MG CAP 5 MG PO ×2 (12:10→15:39)
[2023-01-08] MEDS: Normal Saline 500 ML 100 ML IV (12:11)
[2023-01-08] MEDS: levoFLOXacin 750 MG/150 ML BAG 100 MG IVPB (12:12)
--- NOTE | 2023-01-08 14:24 | PT.INTREAT ---
Date of service: 01/08/23 Time of Service: 14:05 PT Notes Visit Reasons: GI Bleed, Hypokalemia, Hypomagnesemia Inpatient Physical Therapy Treatment Note [facility] Date: 01/08/23 PRECAUTIONS: fall, standard, activity as tolerated SUBJECTIVE: Patient supine in bed, agreeable to therapy. States she is discharging to a SNF pending her insurance prior auth. OBJECTIVE: PAIN: c/o feeling like left hip has gone out of line. Described as uncomfortable. BED MOBILITY/TRANSFERS Rolling L/R: independent Supine-sit: independent Sit-supine: independent Sit-stand: standby Stand-sit: standby Bed-Chair: standby Chair-bed: standby GAIT Assistive Device: front wheeled walker Weight bearing: full Assist: standby, wheelchair follow, help managing IV pole Distance: 300 feet with a seated rest at 100 feet Deviation: reduced stance phase left, reduced swing through R>L. No SOB, LOB. ASSESSMENT: Patient tolerates therapy much better today than previously, obviously feels better, has more strength, more energy. PLAN: Continue strengthening per plan of care until discharge to SNF for continued skilled therapy. TREATMENT CODE/TIME: 39000 Gait 16 minutes beginning at 14:05
[2023-01-08] MEDS: Acetaminophen 325 MG TAB 650 MG PO (14:59)
[2023-01-08 15:40] VITALS: BP 99/70; PULSE 103; RESP 16; TEMP 37.3; O2SAT 96
--- NOTE | 2023-01-08 17:12 | W.PM.PROGNOT ---
Date of Service Date of service: 01/08/23 Time of Service: 17:12 Assessment and Plan Assessment and plan (1) Acute GI bleeding: Status: Acute Assessment and plan: No active bleeding on EGD 01/01/23, but does have evidence of gastritis and an esophageal ulcer. Continue PPI/carafate. CT abd/pelvis obtained on 01/02 d/t increased abd distension/firmness showed suggestion of rectum and anus wall thickening, increase in left pleural effusion, fluid-filled loops of small and large bowel. Note, patient denies any hx of colonoscopy. I advised her of this rectal/anal wall thickening and that she should have this followed up w/ either colonscopy or sigmoidoscopy. However, this does not need to be done this admission and should not delay her discharge. I will put this on her discharge instructions for follow up w/ her PCP or the medical information specialist at [facility]. Hgb has stabilized 12.2 gm yesterday. Not rechecked today (2) Anemia associated with acute blood loss: Status: Acute Assessment and plan: s/p transfusion of 4 units of pRBCs. H/H 12.2 > 12.3 > 11.5 > 12.2 (3) Gastritis: Status: Acute Assessment and plan: tolerating her diet, cont. PPI and carafate (4) Esophageal ulcer: Status: Acute Assessment and plan: As above (5) Hyponatremia: Status: Acute Assessment and plan: I suspect this is due to chemotherapy, decreased PO intake. Na improved to 132> 131>130>131, no longer checking. 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 Palliative care consulted, and the patient is DNR/DNI. (7) DVT prophylaxis: Status: Acute Assessment and plan: SCDs Hold chemical DVT ppx in setting of acute bleeding (8) Discharge planning issues: Status: Acute Assessment and plan: DNR/DNI PT and palliative care. Pt now med-surg status. Patient agreeble to SNF, I anticipate dc to [facility] tomorrow. Subjective Subjective Interval history since last seen: Patient had been looking forward to being dc today. She was referred to [facility] in [place], [place]. However, we have been awaiting approval from her insurance. It had been anticipated to happen late this afternoon but now it appears that the earliest her dc will occur is tomorrow morning. Her only complaint is not being able to sleep at night and then being tired throughout the day and sleeping the day. I told her that I would give her a sleep aid for tonight. I will prescribe Lunesta 1 mg tonight. she denies any abdominal pain and no further melena. Exam Narrative Exam Narrative: Elderly white female who appears comfortable, denies any pain Lungs: clear w/ prolonged expiratory phase Heart: regular Abdomen: soft, nontender, no guarding, normal bowel sounds. Objective Last Vital Signs Temp 37.3 C 01/08/23 15:40 Pulse 103 H 01/08/23 15:40 Resp 16 01/08/23 15:40 BP 99/70 L 01/08/23 15:40 Pulse Ox 96 01/08/23 15:40 Laboratory Results - last 24 hr 01/08/23 05:36 Sodium 131 L Potassium 4.6 Chloride 100 Carbon Dioxide 24.6 Anion Gap 6.4 BUN 6 L Creatinine 0.4 L Est GFR (CKD-EPI 2020) 110.45 Glucose 88 Calcium 7.5 L Time Spent with Patient Time Spent with Patient: <25 minutes Time was spent: preparing to see the patient(eg.review tests), ordering medications,tests, procedures, referring, communicating with other health career technology teacher (care management) and care coordination
[2023-01-08] MEDS: Mirtazapine 15 MG TAB PO (20:13)
[2023-01-08] MEDS: Pantoprazole 40 MG TABCR PO (20:13)
[2023-01-08] MEDS: Atorvastatin 40 MG TAB PO (20:13)
[2023-01-08 20:57] VITALS: BP 112/78; PULSE 94; RESP 16; TEMP 37; O2SAT 98
[2023-01-09] MEDS: oxyCODONE 5 MG TAB PO ×3 (00:43→12:13)
[2023-01-09 00:49] VITALS: BP 102/71; PULSE 100; RESP 16; TEMP 36.9; O2SAT 94
[2023-01-09 04:45] VITALS: BP 136/74; PULSE 104; RESP 17; TEMP 37.1; O2SAT 97
[2023-01-09 06:57] VITALS: BP 112/75; PULSE 118; RESP 20; TEMP 36.5; O2SAT 97
[2023-01-09] MEDS: Pantoprazole 40 MG TABCR PO (07:50)
[2023-01-09] MEDS: guaiFENesin 600 MG TABCR PO (07:50)
[2023-01-09] MEDS: Midodrine 2.5 MG TAB 5 MG PO ×2 (07:50→14:37)
[2023-01-09] MEDS: Sucralfate 1 GM TAB PO ×3 (07:50→16:51)
[2023-01-09] MEDS: Metoclopramide 10 MG TAB PO ×3 (07:50→16:51)
[2023-01-09] MEDS: Potassium Chloride 20 MEQ TABCR PO (07:50)
[2023-01-09 09:07] VITALS: PULSE 110
--- NOTE | 2023-01-09 10:56 | CHAPLAIN ---
Aileen was in bed when I visited. She said she is being discharged today to go a long term in [place], closer to where she lives. She is looking forward to being able to see her family members more often, including her two grandsons.
[2023-01-09 11:09] VITALS: BP 104/73; PULSE 109; RESP 18; TEMP 36.5; O2SAT 95
[2023-01-09] MEDS: Dronabinol 2.5 MG CAP 5 MG PO ×2 (11:58→16:51)
--- NOTE | 2023-01-09 13:47 | PT.INTREAT ---
Date of service: 01/09/23 Time of Service: 12:53 PT Notes Visit Reasons: GI Bleed, Hypokalemia, Hypomagnesemia Inpatient Physical Therapy Treatment Note [facility] Date: 01/09/23 PRECAUTIONS: Fall, standard, activity as tolerated SUBJECTIVE: Patient says Again? Seems like the other therapist just left! Patient supine in bed, agreeable to therapy. OBJECTIVE: PAIN: no pain reported BED MOBILITY/TRANSFERS Rolling L/R: Independent Supine-sit: Independent Sit-supine: Independent Sit-stand: Independent Stand-sit: Independent Bed-Chair: standby Chair-bed: standby GAIT Assistive Device: front wheeled walker Weight bearing: full Assist: standby Distance: 8 feet x2 Deviation: none noted THEREX: Patient participated in bed level exercises including 2x5 heel slides, straight leg raises, hip external rotations, quad sets, hamstring sets, glute sets, 2x10 ankle pumps, pelvic elevators. STAIRS: Patient declined to do stairs today but indicated an interest in beginning them soon. States there are 20 steps to get to a pool that she has access to, observes that getting in the pool would feel really good and would be an exercise that she'd be interested in and motivated for. NEURO YANG: Patient participated in static and dynamic standing balance training including reaching forward and behind, as well as side to side, outside base of support; unsupported standing >10 minutes, self care / hygiene activities in unsupported standing with standby assist. ASSESSMENT: Patient is showing remarkable improvements. No longer requires support getting legs into bed. Strength is up, mood seems to be up. Patient does report she has some trouble eating as her teeth don't line up, chewing is difficult or impossible. Patient also notes that her voice has been gone since august and she would really like to strengthen it / get it back somehow as she misses being able to be heard clearly, especially with regards to making and receiving phone calls. Would benefit from a consult with speech therapy. PLAN: Continue strengthening per plan of care until patient is medically cleared for discharge. TREATMENT CODE/TIME: 41072 Neuro Yang 32 minutes, 40380 Ther Ex 20 minutes beginning at 12:53
[2023-01-09 15:31] VITALS: BP 109/77; PULSE 105; TEMP 35.5; O2SAT 95
--- NOTE | 2023-01-09 15:39 | PDOC.CMPRO ---
Date of service: 01/09/23 Time of Service: 15:40 Care Management Progress Note Progress Note Text Progress Note Text: S/O:Aileen was lying in bed when CM met with her. She was smiling and seemed to be in good spirits. CM received a message from [facility] stating that [employer] insurance, [employer], would not approve a short term rehab stay. Aileen ambulated 300 feet with standby assist yesterday and did not meet their criteria for rehab. CM conveyed this information to her son Vincent, who reportedly became very upset. Per report, he questioned the fact that Aileen ambulated 300 feet with PT yesterday, although it was clearly documented. Per provider, Aileen is medically ready for discharge. CM discussed the situation with Aileen and she stated that she is ok with discharging home. She did indicate that she would consider going to rehab for a couple of days, paying privately, but was not sure that Vincent would agree. A: Aileen is a 62 year old woman admitted on 12/31/22 with a GI Bleed P:Anticipate Aileen will discharge home with new home health services, as her insurance company has declined to approve short term rehab at a SNF. CM will follow and support Aileen and her discharge planning needs.
--- NOTE | 2023-01-09 17:01 | W.PM.DS.N ---
Date of service: 01/09/23 Time of Service: 17:01 DS: Diagnosis Discharge Diagnosis (1) Acute GI bleeding: Status: Acute Asessment and Plan: 62-year-old female with history of metastatic lung cancer on palliative chemotherapy has had recurrent diarrhea after chemotherapy. Last chemotherapy 7 days prior to admission she been having loose watery stools that look melanotic. In the emergency room she was found to be hypotensive with a hemoglobin 6.6 g. Rectal exam revealed melanotic stool that was grossly heme positive. She was admitted for blood transfusion and work-up of her GI bleeding. Patient was initially transfused 2 units of packed red cells on 12/31/2022 which transiently brought her hemoglobin up to 9.2 g before declined down to 7.6 g later in the afternoon on 01/01/2023. She was then transfused 2 more units of packed red cells. From that point on her hemoglobin remained stable at around 12 g. Surgical consultation was obtained with Dr. Axel Marino who saw her on 12/31/2022. He agreed with transfusion and treatment with proton pump inhibitor and recommend endoscopy of her upper GI system once she was stabilized from a hemodynamic standpoint after transfusion. After she was adequately resuscitated she did undergo EGD on 01/01/[address] Kristine Jain. Please see her note for details. In summary she found severe esophagitis esophageal ulcers large hiatal hernia and mild duodenitis. Patient was treated with IV Protonix and oral Carafate and transitioned over to oral Protonix and oral Carafate. Further hemograms were monitored and remained stable. On the day of discharge her hemoglobin is 12.2 g hematocrit 36%. The aspirin that she been on previously was discontinued. She was started on iron supplementation. She did suffer some from some orthostatic hypotension for which she was given midodrine. She suffered from some insomnia and was prescribed mirtazapine which seemed to have little benefit. She seemed to get better rest from a dose of Lunesta. Physical therapy was consulted on her to evaluate her gait stability and her strength. PT saw her from 01/03/2023 through the day of discharge on 01/09/2023. Initial recommendations were for care home facility placement which the patient was reluctant to agree to. Eventually the patient did agree to consider SNF placement and referrals were made by case management to [facility] in [facility]. This was the only SNF that her family were willing to consider. Unfortunately she was not excepted at [facility] however by the time she was discharged she was ambulating quite well with use of a front wheel walker. It was recommended that she continue with home physical therapy and Occupational Therapy as well as home health care with nursing because the patient mention to her therapist that she is had some intermittent swallowing issues we will request speech and language pathology evaluation by the visiting nurses. Patient is to follow-up with her oncologist as well as her PCP within the next 1 to 2 weeks. Prescriptions were written for Protonix 40 mg twice a day along with Carafate 1 g before meals and at bedtime. Mirtazapine 50 mg nightly was written for short-term supply of 10 days as well as midodrine 5 mg 3 times daily for 10 days. Because of the hiatal hernia and reflux Reglan was prescribed but again only short-term prescription was given for 10 days worth. For her chronic constipation issues she can use [id number] docusate and glycerin suppositories and MiraLAX. Of note only an EGD was performed to evaluate her GI bleeding no colonoscopy was performed. Patient informed me that she has never had a colonoscopy and we did note on her abdominal and pelvic CT that showed some thickening of the rectum and anus. I did discuss this with the patient and I did recommend that she talk with her PCP about a GI or surgical referral for sigmoidoscopy or colonoscopy. 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 Sodium at time of discharge was stable at 130 meq/L (6) Malignant neoplasm of unspecified part of unspecified bronchus or lung: Status: Acute Asessment and Plan: patient to follow up w/ her oncologist (7) Discharge planning issues: Status: Deleted Asessment and Plan: Patient intially was felt to possibly need SNF and family would only accept a referral to [facility] in [place], [place]. Referral was made but her insurance would not cover a stay as the patient was doing well enough w/ ambulation w/ a walker, that home P.T. services can provide her w/ adeuqate follow up. Discharge Plan Disposition Patient Disposition: Home W/Home Health Services Condition: Improving Discharge Details Reason For Visit: GI Bleed, Hypokalemia, Hypomagnesemia Admit Date/Time: 12/31/22 15:38 Admit Provider: Nile Valdez Attending Provider: Nile Valdez Primary Care Provider: Ashleigh Martinez Home Meds and New Rx's Prescriptions: New docusate sodium [Colace] 100 mg Capsule 100 mg PO TID PRN PRNQty: 0 0RF polyethylene glycol 3350 17 gram Powder In Packet 17 g PO DAILY PRN PRNQty: 0 0RF pantoprazole 40 mg Tablet,Delayed Release (Dr/Ec) 40 mg PO BID@ Qty: 0 0RF midodrine 2.5 mg Tablet 5 mg PO TID Qty: 0 0RF mirtazapine 15 mg Tablet 15 mg PO HS Qty: 0 0RF metoclopramide HCl 10 mg Tablet 10 mg PO AC & HS Qty: 0 0RF oxycodone 5 mg Tablet 5 mg PO Q4H PRN PRN5 Days Qty: 20 0RF glycerin (adult) [Fleet Glycerin (Adult)] Suppository 1 supp MO DAILY PRN PRNQty: 0 0RF guaifenesin [Mucus Relief ER] 600 mg Tablet Extended Release 12hr 600 mg PO BID Qty: 0 0RF sucralfate 1 gram Tablet 1 g PO AC & HS Qty: 0 0RF Continued zolpidem 10 mg tablet 10 mg PO HS Patient Comments: TAKE 1 TABLET BY MOUTH EVERY DAY AT BEDTIME atorvastatin 40 mg tablet 40 mg PO HS Qty: 30 0RF Patient Comments: TAKE 1 TABLET BY MOUTH EVERY EVENING ferrous sulfate [FeroSul] 325 mg (65 mg iron) tablet 325 mg PO TID Qty: 30 0RF albuterol sulfate 90 mcg/actuation HFA aerosol inhaler 1 - 2 puff INHALATION Q6H PRNQty: 8.5 0RF Discontinued azithromycin 250 mg tablet 250 mg PO DIRECTED Patient Comments: rx complete 12/31/22 CT aspirin 81 mg tablet,chewable 81 mg PO DAILY Patient Comments: CHEW AND SWALLOW 1 TABLET BY MOUTH DAILY Discharge Instructions Instructions: Sucralfate (By mouth), Oxycodone, Rapid Release (By mouth), Mirtazapine (By mouth), Pantoprazole (By mouth), Peptic Ulcer (DC), Diet for Stomach Ulcers and Gastritis (GEN), Esophagitis (DC) Additional Instructions: You were treated for UGI bleeding from ulcerations of your esophagus and from gastritis and duodenitis. You should stop use of aspirin and avoid the use of any non-steroidal anti-inflammatory medications such as ibuprofen, advil or aleve. You have been prescribed pantoprazole and sucralfate to help your ulcers heal. You were put on metoclopramide to help w/ your nausea w/ meals. Midodrine was prescribed to help w/ your orthostatic dizziness and mirtazapine was prescribed to help w/ your insomnia. If this does not help then stop the mirtazapine. Docusate and glycerin suppositories are available as over the counter medications for constipation and needs no prescription. A short term supply of oxycodone was prescribed for your cancer pain. Please follow up w/ your cancer doctor or your PCP to discuss [facility] pain management. Stand Alone Forms: Nursing Discharge Form Referrals: Ashleigh Martinez [Primary Care Provider] - (A nurse from Dr Martinez's office will call you ) Activity:: Activity as Tolerated Equipment/Supplies:: No Equipment Needed Diet:: Normal Diet Discharge Orders Discharge Orders: Discharge Order (Routine); Ordered 01/09/23 Ordered By: Hany Palomo Discharge Data Discharge Date/Time-TO BE ENTERED AT DEPARTURE: 01/09/23 17:20 DS: Summary Time Spent with Patient providing and/or coordinating discharge services: Greater than 30 minutes Specific discharge activities: Interview/exam of patient; review of discharge instructions, completion of prescriptions/discharge instructions; discussion w/ nursing and CM; documentation of hospital visit Status at Discharge Functional status at discharge: uses cane/walker Overall status at discharge: patient is progressing back to baseline Mental Status: mental status grossly normal Speech and Movement: speech and movement normal Mood: congruent mood Affect: normal affect Exam Narrative Exam Narrative: Patient is dressed and waiting for her son to arrive to take her home. She indicated to me that she did a lap around the nursing station and down the hallway w/ use of her walker. I spoke w/ P.T. about her progress and they indicated that she did well. They are recommending home discharge w/ home P.T. and O.T., they also asked for SOCIAL WORK JOB TITLES as patient has complained of difficulty swallowing. Patient is alert and oriented, no acute distress, not in acute pain at present, although she mentioned that she has been having intermittent left hip pains. Patient has prior left hip replacement. Lungs: clear Heart: RRR Abdomen: nondistended, soft, nontender Hips: she has good ROM of her left hip; no pain w/ internal or external rotation; normal hip flexion and extenion w/out reproducible pain Psych Mental Status: mental status grossly normal Speech and Movement: speech and movement normal Mood: congruent mood Affect: normal affect DS: Data Vitals/I&O Vitals and I&O: Vital Signs Temperature 35.5 C L 01/09/23 15:31 Temperature Source Tympanic 01/09/23 15:31 Pulse 105 H 01/09/23 15:31 Pulse Rhythm Regular 01/09/23 15:32 Pulse 94 H 01/05/23 11:01 Respiratory Rate 18 01/09/23 11:09 Respiratory Effort Normal, Non-Labored 01/09/23 15:32 Respiratory Depth Normal 01/09/23 15:32 Respiratory Pattern Normal 01/09/23 15:32 Blood Pressure 109/77 01/09/23 15:31 Blood Pressure Mean 83 01/06/23 15:20 Blood Pressure Position Sitting 01/03/23 00:44 Pulse Oximetry 95 01/09/23 15:31 Oxygen Delivery Method Room Air 01/09/23 15:31 Oxygen Flow Rate 0 01/09/23 15:31 Pain Level 0 01/09/23 11:09 Comment Pt. asleep at this time. Pt. doesn't display any s/s of pain at this time. 01/08/23 11:41 Intake & Output 01/08/23 01/09/23 01/09/23 23:59 11:59 23:59 Intake Total 615.850 / 1175.850 200 / 400 200 / 400 Output Total 1400 / 1400 Balance 615.850 / 675.850 -1200 / -1000 200 / -1000 Intake: IV 315.850 / 335.850 Oral 300 / 840 200 / 400 200 / 400 Output: Urine 1400 / 1400 Other: Urine Color Yellow Urine Appearance Cloudy Clear Urine Odor None Stool Size Moderate Smear Stool Characteristics Soft Soft Liquid Voiding Methods Incontinent Data Completed and Pending Labs on day of discharge: Preliminary micro results at discharge 01/08/23 08:35 Sputum Culture - Preliminary Sputum Normal She 01/05/23 18:58 Blood Culture - Preliminary Blood NO GROWTH 72 HOURS 01/05/23 18:47 Blood Culture - Preliminary Blood NO GROWTH 72 HOURS PFSH All Active Problems (Updated 01/10/23 @ 22:28 by Hany Palomo MD) Palliative care encounter (Acute) Metastatic non-small cell lung cancer (Acute) Hyponatremia (Chronic) Esophageal ulcer (Acute) Gastritis (Acute) Anemia associated with acute blood loss (Acute) Acute GI bleeding (Acute) Hypotension (Acute) Abdominal wall mass of periumbilical region (Acute) Malignant neoplasm of unspecified part of unspecified bronchus or lung (Acute) Thrombocytosis, unspecified (Acute) Transient cerebral ischemic attack, unspecified (Chronic) Insomnia, unspecified (Acute) Medical History Alcohol abuse Carbuncle COVID-19 (~07/2022) asymptomatic History of stroke 07/2022 Surgical History History of bronchoscopy History of carpal tunnel repair History of esophagogastroduodenoscopy (EGD) (~12/2022) Hx of appendectomy Hx of hemorrhoidectomy Social History Smoking/Tobacco Use Status: Former Tobacco Use Quit Date: 08/15/22 Smoking risk assessment performed?: Yes Alcohol Intake: former Details: weekly Do you feel safe at home: Yes Do you feel safe in your relationship?: Yes Time Spent with Patient Time Spent with Patient: 45-69 minutes Time was spent: preparing to see the patient(eg.review tests), ordering medications,tests, procedures, indepentently interpreting results, counseling the patient (And patient's nephew) and care coordination
[2023-01-09] MEDS: Heparin 500 UNITS/5 ML SYRINGE IV (17:04)
[2023-01-09] MEDS: Normal Saline Flush 10 ML SYR IVP (17:05)
--- NOTE | 2023-01-09 18:38 | INPN_ITS ---
Date of service: 01/09/23 Time of Service: 10:19 PT Notes Visit Reasons: GI Bleed, Hypokalemia, Hypomagnesemia Physical Therapy Inpatient Progress Note Date: 01/09/2023 Dates of Service: 01/03/2023 through 01/09/2023 Referring Doctor: Madai Rahman MD PT Orders: PT CONSULT: Limited ability Precautions: Fall. Standard. Activity as tolerated. Patient Profile/Admitting Diagnosis:? Aileen is a 62-year-old female admitted to the ED on 12/31/2022 due to low hemoglobin level and hypotension while on chemotherapy at [facility].? Patient is admitted for management of acute GI bleed,? metastatic non-small cell lung cancer, hypotension, anemia associated with acute blood loss, CVA in July, hip pain, esophageal ulcer, gastritis, and hypotension. PMHX: All Active Problems? Acute GI bleeding (Acute) Hypotension (Acute) Abdominal wall mass of periumbilical region (Acute) Malignant neoplasm of unspecified part of unspecified bronchus or lung (Acute) Thrombocytosis, unspecified (Acute) Transient cerebral ischemic attack, unspecified (Chronic) Insomnia, unspecified (Acute) Medical History? Alcohol abuse Carbuncle COVID-19 (~07/2022) asymptomatic History of stroke 07/2022 Surgical History? History of bronchoscopy History of carpal tunnel repair Hx of appendectomy Hx of hemorrhoidectomy Social History/Home Situation: Has had slow deterioration in terms of strength and mobility related to ongoing neoplastic pathology and chemotherapy.? Able to walk for short distances at home for up to 10 feet using front-wheeled walker.? Has a ramp to enter home.? Son and son's family have been good support. Equipment Owned/DME: [facility] Subjective: Happy about her remarkable progress thus far. A bit concerned about her L hip, reports minimal pain that did not limit today's session. Objective: General Observation: Supine in? bed.? Mental Status: Alert and oriented as to person, place, time, and purpose. Able to pay attention, focus, and respond appropriately. Pain: Minimal pain in L hip Vital Signs: Closley monitored by nursing staff ROM: Right Upper Extremity: ? Shoulder Flexion WFL. Shoulder abduction WFL. Elbow flexion WFL. Wrist flexion WFL. Functional opening and closing of hand WFL. Left Upper Extremity:? Shoulder Flexion WFL. Shoulder abduction WFL. Elbow flexion WFL. Wrist flexion WFL. Functional opening and closing of hand WFL. Right Lower Extremity: Hip flexion WFL. Hip abduction WFL. Knee flexion WFL. Ankle dorsiflexion WFL. Ankle plantarflexion WFL. Left Lower Extremity: Hip flexion WFL. Hip abduction WFL. Knee flexion WFL. Ankle dorsiflexion WFL. Ankle plantarflexion WFL. Strength: Right Upper Extremity: Shoulder flexors 4-/5. Shoulder abductors 4-/5. Elbow flexors 4-/5. Elbow extensors 4-/5. Lactation Consultant strong. Left Upper Extremity: Shoulder flexors 4-/5. Shoulder abductors 4-/5. Elbow flexors 4/5. Elbow extensors 4-/5. Lactation Consultant strong. Right Lower Extremity: Hip flexors 4-/5. Hip abductors 4-/5. Knee flexors 4-/5. Knee extensors 4-/5. Ankle dorsiflexors 4-/5. Ankle plantarflexors 4-/5. Left Lower Extremity: Hip flexors 4-/5. Hip abductors 4-/5. Knee flexors 4-/5. Knee extensors 4-/5. Ankle dorsiflexors 4-/5. Ankle plantarflexors 4-/5. Bed Mobility/Transfers: Supine to sit independent Sit to supine independent Sit to stand independent with FWW Stand to sit independent with FWW Bed to reclining chair supervision with FWW Gait: Instructed patient with level surface ambulation of 300 feet requiring stand by assist.? Needed to slow down towards the end of her walk due to minimla fatigue. Saritha improved. Step height increased. Step length increased.? Minimal SOB resolved with slowing gait speed and deep breathing exercises. No LOB. Balance: Static Sitting: Normal Dynamic Sitting: Normal Static Standing: Fair Dynamic Standing: Fair Special Tests: Mobility Limitations Standardized Measure [facility] 6 clicks Basic Mobility Inpatient Short Form: Raw Score: 23? CMS Score: 11% deficit? ? ? Informed Consent/Education:? Patient was instructed in purpose of PT consult and plan of care.? Agreeable to proceed with established PT POC to achieve personal goals. Assessment: Considerable improvement thus far in terms of mobility level, activity tolerance, strength, and level of motivation as seen by reduction in the deficit score of the [employer] standardized test. Patient presents with clinical signs and symptoms consistent with current/admitting diagnoses that have resulted to mobility limitations, gait instability, generalized weakness, and overall ADL decline as demonstrated by the following impairment level findings: 1.? Increasing strength to B UE/LE major muscle groups 2.? Improving standing balance 3.? Improving activity tolerance Impairments are contributing to the following functional limitations: 1.? Difficulty with ambulation without assistive device Patient is assessed as a 68444 moderate complexity based on the following: History: 62-year-old female with past medical history as indicated above Examination: Demonstrable impairment in strength, balance, and mobility level with underlying impairments and functional limitations as exhibited above as well as deficit score of 11% utilizing the [facility] Mobility Inpatient Short Form Presentation: Evolving Decision Makin moderate complexity Goals: Goals X1 week 1. Supine-Sit independent MET 2. Sit-Supine independent MET 3. Sit-Stand independent MET 4. Stand-Sit independent with FWW MET 5. Bed-Chair independent with FWW NOT MET, CONTINUE with HH PT 6. Chair-Bed independent with FWW NOT MET, CONTINUE with HH PT 7. Independent gait on level surface with use of FWW for at least 30 feet without report of pain nor dyspnea NOT MET, CONTINUE with HH PT 8. Good static and dynamic standing balance/tolerance NOT MET, CONTINUE with HH PT Plan of Care/Treatment Plan: 1-2x/day, 7 days/week x 1 week. Plan of care has been reviewed with the HELP DESK CONSULTANT providing the service under Physical Therapy direction. Initiate Physical Therapy intervention for pain management as needed, strengthening, bed mobility, transfers, gait, stairs, balance training, and use of assistive device. DISCHARGE RECOMMENDATIONS: [] ? Home with no services [] [X] ? Home with services. Patient will benefit from home health PT services in order to progress mobility level using least restrictive assistive ambulatory device, assess home safety, identify additional equipment needs, and establish a functional maintenance program that will increase ability of patient to remain at home. [] ? Home with outpatient PT [] [] ? SNF for continued rehabilitation [] [] ? [facility] [] [] ? SNF versus LTC based on ability to participate and progress [] TREATMENT CODE/TIME: 18528 x 24 minutes beginning at 10:19 AM. Thank you for the opportunity to participate in the care of this patient. Marianela Lafleur PT, DPT, CLT [facility] [place], [place]
--- NOTE | 2023-01-10 17:08 | INDS_ITS ---
Date of service: 01/09/23 PT Notes Visit Reasons: GI Bleed, Hypokalemia, Hypomagnesemia Physical Therapy Inpatient Discharge Summary Date: 01/09/2023 Dates of Service:? 01/03/2023 through 01/09/2023 Referring Doctor: Madai Rahman MD PT Orders: PT CONSULT: Limited ability Precautions: Fall. Standard. Activity as tolerated. Patient Profile/Admitting Diagnosis:? Aileen is a 62-year-old female admitted to the ED on 12/31/2022 due to low hemoglobin level and hypotension while on chemotherapy at [facility].? Patient is admitted for management of acute GI bleed,? metastatic non-small cell lung cancer, hypotension, anemia associated with acute blood loss, CVA in July, hip pain, esophageal ulcer, gastritis, and hypotension. PMHX: All Active Problems? Acute GI bleeding (Acute) Hypotension (Acute) Abdominal wall mass of periumbilical region (Acute) Malignant neoplasm of unspecified part of unspecified bronchus or lung (Acute) Thrombocytosis, unspecified (Acute) Transient cerebral ischemic attack, unspecified (Chronic) Insomnia, unspecified (Acute) Medical History? Alcohol abuse Carbuncle COVID-19 (~07/2022) asymptomatic History of stroke 07/2022 Surgical History? History of bronchoscopy History of carpal tunnel repair Hx of appendectomy Hx of hemorrhoidectomy Social History/Home Situation: Has had slow deterioration in terms of strength and mobility related to ongoing neoplastic pathology and chemotherapy.? Able to walk for short distances at home for up to 10 feet using front-wheeled walker.? Has a ramp to enter home.? Son and son's family have been good support. Equipment Owned/DME: [facility] Subjective: Happy about her remarkable progress thus far.? A bit concerned about her L hip,? reports minimal pain that did not limit today's session.? Objective: General Observation: Supine in? bed.? Mental Status: Alert and oriented as to person, place, time, and purpose. Able to pay attention, focus, and respond appropriately. Pain: Minimal pain in L hip Vital Signs: Closley monitored by nursing staff ROM: Right Upper Extremity: ? Shoulder Flexion WFL. Shoulder abduction WFL. Elbow flexion WFL. Wrist flexion WFL. Functional opening and closing of hand WFL. Left Upper Extremity:? Shoulder Flexion WFL. Shoulder abduction WFL. Elbow flexion WFL. Wrist flexion WFL. Functional opening and closing of hand WFL. Right Lower Extremity: Hip flexion WFL. Hip abduction WFL. Knee flexion WFL. Ankle dorsiflexion WFL. Ankle plantarflexion WFL. Left Lower Extremity: Hip flexion WFL. Hip abduction WFL. Knee flexion WFL. Ankle dorsiflexion WFL. Ankle plantarflexion WFL. Strength: Right Upper Extremity: Shoulder flexors 4-/5. Shoulder abductors 4-/5. Elbow flexors 4-/5. Elbow extensors 4-/5. Senior Mechanical Project Engineer strong. Left Upper Extremity: Shoulder flexors 4-/5. Shoulder abductors 4-/5. Elbow flexors 4/5. Elbow extensors 4-/5. Senior Mechanical Project Engineer strong. Right Lower Extremity: Hip flexors 4-/5. Hip abductors 4-/5. Knee flexors 4-/5. Knee extensors 4-/5. Ankle dorsiflexors 4-/5. Ankle plantarflexors 4-/5. Left Lower Extremity: Hip flexors 4-/5. Hip abductors 4-/5. Knee flexors 4-/5. Knee extensors 4-/5. Ankle dorsiflexors 4-/5. Ankle plantarflexors 4-/5. Bed Mobility/Transfers: Supine to sit independent Sit to supine independent Sit to stand independent with FWW Stand to sit independent with FWW Bed to reclining chair supervision with FWW Gait: Instructed patient with level surface ambulation of 300 feet requiring stand by assist.? Needed to slow down towards the end of her walk due to minimal fatigue.? Saritha improved. Step height increased. Step length increased.? Minimal SOB resolved with slowing gait speed and deep breathing exercises.? No LOB.? Balance: Static Sitting: Normal Dynamic Sitting: Normal Static Standing: Fair Dynamic Standing: Fair Assessment: Considerable improvement thus far in terms of mobility level,? activity tolerance,? strength,? and level of motivation as seen by reduction in the deficit score of the [facility] standardized test.? Patient presents with clinical signs and symptoms consistent with current/admitting diagnoses that have resulted to mobility limitations, gait instability, generalized weakness, and overall ADL decline as demonstrated by the following impairment level findings: 1.? Increasing strength to B UE/LE major muscle groups 2.? Improving standing balance 3.? Improving activity tolerance Impairments are contributing to the following functional limitations: 1.? Difficulty with ambulation without assistive device Goals: Goals X1 week 1. Supine-Sit independent MET 2. Sit-Supine independent MET 3. Sit-Stand independent MET 4. Stand-Sit independent with FWW MET 5. Bed-Chair independent with FWW NOT MET,? CONTINUE with HH PT 6. Chair-Bed independent with FWW NOT MET,? CONTINUE with HH PT 7. Independent gait on level surface with use of FWW for at least 30 feet without report of pain nor dyspnea NOT MET,? CONTINUE with HH PT 8. Good static and dynamic standing balance/tolerance NOT MET,? CONTINUE with HH PT DISCHARGE RECOMMENDATIONS: [] ? Home with no services [] [X] ? Home with services.? Patient will benefit from home health PT services in order to progress mobility level using least restrictive assistive ambulatory device, assess home safety, identify additional equipment needs, and establish a functional maintenance program that will increase ability of patient to remain at home. [] ? Home with outpatient PT [] [] ? SNF for continued rehabilitation [] [] ? Inside Sales Representative [facility] [] [] ? SNF versus LTC based on ability to participate and progress [] TREATMENT CODE/TIME: MT Thank you for the opportunity to participate in the care of this patient. Marianela Lafleur PT, DPT, CLT [facility] [place], [place]
--- NOTE | 2023-01-10 22:32 | PDOC.HHF2F_ITS ---
Home Health Referral Home Health Orders Clinical synopsis of why skilled professionals are needed: UGI bleeding from esophageal ulcers, gastritis and duodenitis Medical diagnosis necessitation home health referral: as above Registered Nurse: Check all that apply Instruct on new or changed medication(s)/assess compliance: Ordered Other: Assess patient regarding stability of her anemia, and recent GI bleed, educate patient and family about her new medications, coordinate care w/ her PCP and carry out any new orders, monitor labs, monitor medication compliance Physical Therapist: Check all that apply Increase strength & endurance for safe mobility at home: Ordered To design/establish home maintenance program: Ordered Fall reduction therapy program for patient with history of frequent falls: Ordered Home safety evaluation and teaching/gait training including stair management (if applicable): Ordered Occupational Therapist: Evaluate and treat for patient unable to perform ADL/IADL/self-care: Ordered Speech Therapist: Check all that apply For swallow evaluation/therapy due to dysphagia: Ordered Sports Intern: Assist with community resources: Ordered Home Bound Status Requires the aid of supportive device (check all that apply): Walker Assistance of another person (Describe assistance and medical necessity): patient requires assistance from family/nursing to perform ADL including bathing/dressing Patient has a condition such that leaving home is medically contraindicated (Describe): severe anemia, cancer and COPD all leading to general weakness and increased fall risk Describe why leaving home would require a considerable and taxing effort: Requires frequent rest periods and Safety Concerns: describe (gait instability, risk of falls) Encounter Date and Reason: I certify that a [facility]TF encounter for this patient was performed on January 10, 2023 and that such encounter was related to the primary reason the patient requires home health services. The encounter was conducted in the following manner: * By me as the certifying physician, CAD DRAFTSMAN, PA or * By an inpatient physician, CAD DRAFTSMAN or PA during an inpatient stay who communicated findings to me, Certification And Authentication I certify that I composed the above information based on my clinical judgment relating to this patient's medical condition and, if applicable, clinical findings communicated to me by the NPP or inpatient physician who performed the FTF encounter. Name of Provider that will be monitoring home health services: Ashleigh Martinez
== END 2023-01-09 17:20 | disposition home health service (06) | DRG 381 ==
LOC: ER 15:31 → ICU 17:45 → MS 01-06 16:48
PROVIDERS: Family Medicine; Internal Medicine; Surgery; Admitting Provider Family Medicine; Emergency Provider Emergency Medicine; PCP Internal Medicine; Visit Provider Family Medicine
PROC: 0DJ68ZZ Inspection of Stomach, Via Natural or Artificial Opening Endoscopic (ICD-10-PCS; CPT 43235; principal; 2023-01-01 09:45)
DX: K22.11 Ulcer of esophagus with bleeding (principal); C34.12 Malignant neoplasm of upper lobe, left bronchus or lung; C79.51 Secondary malignant neoplasm of bone; D62 Acute posthemorrhagic anemia; E87.1 Hypo-osmolality and hyponatremia; C79.72 Secondary malignant neoplasm of left adrenal gland; C79.71 Secondary malignant neoplasm of right adrenal gland; R64 Cachexia; Z68.1 Body mass index [BMI] 19.9 or less, adult; J90 Pleural effusion, not elsewhere classified; K44.9 Diaphragmatic hernia without obstruction or gangrene; K29.81 Duodenitis with bleeding; Z79.899 Other long term (current) drug therapy; Z86.73 Personal history of transient ischemic attack (TIA), and cerebral infarction without residual deficits; G47.00 Insomnia, unspecified; D75.839 Thrombocytosis, unspecified; F10.10 Alcohol abuse, uncomplicated; Z87.891 Personal history of nicotine dependence; K29.70 Gastritis, unspecified, without bleeding; Z66 Do not resuscitate; Z95.828 Presence of other vascular implants and grafts; R93.5 Abnormal findings on diagnostic imaging of other abdominal regions, including retroperitoneum; I95.1 Orthostatic hypotension
CPT/HCPCS: 43235; 36410; 36415; 36430; 71275; 74177; 80048; 80053; 85027; 86850; 86900; 86901; 86920; 87040; 87493; 93005; 96374; 97110; 97112; 97116; 97162; 97530; 99285; 71045; 74018; 81003; 81015; 83605; 83735; 84443; 84484; 85014; 85018; 85025; 85610; 85730; 87070; 87205; 93010; 94640; 94667; 94668; 99223; 99231; 99232; 99233; 99291; J0780; J1756; J1956; J2250; J3475; J3480; J3490; J7613; P9016

== ENCOUNTER 2023-01-21 01:51 | Outpatient (RCR) | payer OTHER, SELFPAY ==
[2023-01-14] MEDS: Normal Saline Flush 10 ML SYR IVP (07:25)
[2023-01-14 07:43] LABS: Abs Immature Grans 0.06 10^3/uL (0.0-0.06); Absolute Basophil Count 0.05 10^3/uL (0.0-0.2); Absolute Eosinophil Count 0.02 10^3/uL (0.0-0.7); Absolute Lymphocyte Count 2.34 10^3/uL (1.2-3.4); Absolute Monocyte Count 1.06 10^3/uL (0.1-0.8); Absolute Neutrophil Count 4.91 10^3/uL (1.2-6.7); Basophils % 0.6; Eosinophils % 0.2; HCT 38.7 % (36.0-46.0); HGB 13.3 g/dL (11.2-15.7); Immature Grans % 0.7; Lymphocytes % 27.7; MCH 30.6 pg (27.0-33.0); MCHC 34.4 % (32.0-36.0); MCV 89 fL (80-95); MPV 10.4 fL (8.0-11.0); Monocytes % 12.6; Neutrophils % 58.2; Platelet Count 168 10^3/uL (130-400); RBC 4.35 10^6/uL (3.93-5.22); RDW-SD 46.3 fL; WBC 8.44 10^3/uL (4.4-10.8)
[2023-01-14 08:11] LABS: ALT 18 U/L (14-59); AST 16 U/L (15-37); Albumin 2.1 g/dL (3.4-5.0); Alkaline Phosphatase 145 U/L (46-116); Anion Gap 9.2 mmol/L (3-11); BUN 23 mg/dL (7-18); Bilirubin, Total 0.6 mg/dL (0.2-1.0); CO2 23.8 mmol/L (21.0-32.0); CREATININE 0.7 mg/dL (0.55-1.02); Calcium 7.1 mg/dL (8.5-10.1); Chloride 98 mmol/L (98-107); Estimated GFR 96.52 (mL/min/1.73m2); FREE T4 1.47 ng/dL (0.76-1.46); Glucose 82 mg/dL (74-106); Magnesium 1.7 mg/dL (1.8-2.4); Potassium 3.3 mmol/L (3.5-5.1); Sodium 131 mmol/L (136-145); Total Protein 5.5 g/dL (6.4-8.2)
== END 2023-02-11 23:59 | disposition home or self-care (01) ==
LOC: INF 01:51
PROVIDERS: PCP Internal Medicine; Visit Provider Internal Medicine Medical Oncology
DX: C34.12 Malignant neoplasm of upper lobe, left bronchus or lung (principal); C79.51 Secondary malignant neoplasm of bone; C79.71 Secondary malignant neoplasm of right adrenal gland; C79.72 Secondary malignant neoplasm of left adrenal gland; Z79.899 Other long term (current) drug therapy
CPT/HCPCS: 36591; 80053; 83735; 84439; 84443; 85025